=== PATIENT | female | born 1990 | race Caucasian/White ===

== ENCOUNTER 2016-12-17 19:34 | Inpatient (IN) ==
[2016-12-17] MEDS ORDERED: NS FLUSH BAG 500ml IV PRN ×3 (21:13→21:56)
[2016-12-17] MEDS ORDERED: ACETAMINOPHEN 500 MG TABLET PO PRN ×2 (21:43→22:06)
[2016-12-17] MEDS ORDERED: METHYLERGONOVINE 0.2 MG/ML INJECTION IM PRN (22:06)
[2016-12-17] MEDS ORDERED: MAG-AL + SIM ORAL LIQUID 30ml PO PRN (22:06)
[2016-12-17] MEDS ORDERED: LR 1,000 ML IV PRN (22:06)
[2016-12-17] MEDS ORDERED: CARBOPROST 250 MCG/ML INJECTION IM PRN (22:06)
[2016-12-17] MEDS ORDERED: CALCIUM CARBONATE Chewable 500mg TABLET PO PRN (22:06)
[2016-12-17] MEDS ORDERED: DiphenhydrAMINE 50 MG/ML INJECTION IVP PRN (22:58)
[2016-12-17] MEDS ORDERED: ONDANSETRON 4 MG/2 ML INJECTION IVP PRN (22:58)
[2016-12-17] MEDS ORDERED: NALOXONE 0.4 MG/ML INJECTION IVP PRN (22:58)
[2016-12-17] MEDS ORDERED: ROPIVACAINE 1% 10MG/ML INJ 200 MG, SUFentanil 50 MCG in NS 100 ML EPI PRN (22:58)
--- NOTE | 2016-12-17 22:58 | Anesthesia Preoperative Report ---
Anesthesia Epidural/Spinal Rec - Date and Time Date: 12/17/16 Preoperative Diagnosis: Procedure: Labor Epidural Plan: Epidural - Vital Signs Vital Signs: Temperature 97.2 F 12/17/16 21:30 Pulse Rate 86 12/17/16 21:30 Respiratory Rate 20 12/17/16 21:30 Blood Pressure 127/73 12/17/16 21:30 Pulse Oximetry 98 12/17/16 21:30 /Para: P:2 - Medictaions & Allergies Inpatient Medications: Current Medications Acetaminophen (Tylenol) 1,000 mg PO Q5H PRN PRN Reason: Discomfort Last Admin: 12/17/16 21:45 Dose: 1,000 mg Acetaminophen (Tylenol) 500 - 1,000 mg PO Q4H PRN PRN Reason: Pain Al Hydroxide/Mg Hydroxide (Maalox Plus) 30 ml PO Q3H PRN PRN Reason: Indigestion Calcium Carbonate (Tums) 500 - 1,000 mg PO Q2H PRN PRN Reason: Indigestion Carboprost Tromethamine (Hemabate) 250 mcg IM O PRN PRN Reason: .Downtime Lactated Ringer's (Lactated Ringers) 1,000 mls @ 999 mls/hr IV .Q1H1M PRN Methylergonovine Maleate (Methergine) 0.2 mg IM O PRN Misoprostol (Cytotec) 800 mcg OR ONCE PRN Sodium Chloride (Normal Saline) 500 ml IV PRN PRN Last Admin: 12/17/16 21:15 Dose: 500 ml Sodium Chloride (Normal Saline) 100 ml IV PRN PRN Sodium Chloride (Normal Saline) 500 ml IV PRN PRN Last Admin: 12/17/16 21:57 Dose: 500 ml Allergies/Adverse Reactions: Allergies Allergy/AdvReac Type Severity Reaction Status Date / Time hydrocortisone Allergy Intermediate RASH GETS Verified 11/27/16 12:05 WORSE diphenhydramine HCl Allergy Mild RASH Uncoded 11/27/16 12:05 STEROID SHOTS Allergy Unknown Uncoded 11/27/16 12:05 - Home Medications Home Medications: Home Medications Medication Instructions Recorded Confirmed Type Albuterol HFA Inhaler [Ventolin 2 puff ORAL INH Q4H PRN 08/29/16 08/29/16 History Hfa 90 mcg/actuation] Pnv No.95/Ferrous Fum/Folic AC 1 tab PO DAILY 08/29/16 08/29/16 History [ Tablet] Novolog Mix 70-30 FlexPen (insulin 14 unit SQ BID ml 11/13/16 History aspar prot-insulin aspart) 100 unit/mL (70-30) PEN pen needle, diabetic 31 gauge x See Dose Instructions .ROUTE 11/13/16 History 3/16" .MEDSUPPLY #30 each - Medical History Gastrointestional: Reports: Morbid Obesity - Surgical History Anesthesia Reactions: None Hx Family Anesthesia Reaction: No History of Motion Sickness: No - Social History Substance Use Type: does not use - Pertinent Findings Lab Data: CBC and BMP 12/17/16 22:20 Urine 12/17/16 Range/Units 19:40 Urine Color Yellow (YELLOW) Urine Clarity Sl cloudy Urine pH 7.0 (5.0-8.0) Ur Specific [place] 1.020 (1.015-1.025) Urine Protein 2+ A (NEGATIVE) Urine Glucose (UA) Negative (NEGATIVE) EKG Rhythm: Normal Sinus Rhythm - Physical Exam Respiratory Exam: lungs clear Cardiovascular Exam: regular rate and rhythm, no murmur - Airway Assessment Mallampati Score: II TMD: 3 Fingerbreadths Neck Extension: good Teeth: chipped teeth/crowns Overall Assessment: may be difficult mask vent, may be difficult intubation - ASA ASA Score: 3 - Discussion Discussion: Discussed risks/options/alternatives of anesthesia and questions answered. Patient consents. Nursing pain assessment noted. Anesthesia Discussion: family member Attestation Statement: Prior to the delivery of any anesthetic medication, I examined the patient, developed the plan, obtained the patient's consent and discussed the risk and benefits of the procedure with the patient/guardian.
[2016-12-18] MEDS ORDERED: MAG-AL + SIM ORAL LIQUID 30ml PO PRN (00:19)
[2016-12-18] MEDS ORDERED: DiphenhydrAMINE 25 MG CAPSULE PO PRN (00:19)
[2016-12-18] MEDS ORDERED: CALCIUM CARBONATE Chewable 500mg TABLET PO PRN (00:19)
[2016-12-18] MEDS ORDERED: OXYTOCIN DRIP 30 UNIT/500 ML ML IV SCH (00:19)
[2016-12-18] MEDS ORDERED: ACETAMINOPHEN 500 MG TABLET PO PRN (00:19)
[2016-12-18] MEDS ORDERED: BENZOCAINE 20% SPRAY 0.5 ML MM ONE (00:19)
[2016-12-18] MEDS: HYDROCODONE/APAP 5mg/325mg TABLET PO PRN ×5 (00:22→22:02)
[2016-12-18] MEDS: IBUPROFEN 800 MG TABLET PO PRN ×3 (00:22→17:14)
[2016-12-18 03:04] VITALS: BMI 45.0
--- NOTE | 2016-12-18 06:51 | Anesthesia Postoperative Note ---
- Date and Time Date: 12/18/16 Time: 06:51 - Status Patient Participated in Evaluation: Patient Participated in Person Vital Signs: Temperature 98.6 F 12/18/16 03:30 Pulse Rate 90 12/18/16 03:30 Respiratory Rate 16 12/18/16 03:30 Blood Pressure 113/73 12/18/16 03:30 Pulse Oximetry 98 12/18/16 03:30 Respiratory Function: Airway Patent Cardiovascular Function: Regular Pulse EKG: Sinus Rhythm Mental Status: Alert and Oriented Pain Intensity: 0 Hydration: Taking PO Fluids Complications During Recover: None Apparent - Follow-Up Instructions Instructions: Per Surgeon
--- NOTE | 2016-12-18 07:41 | OB/GYN Progress Note ---
OB-PP Progress Note - General PPD1 Maternal Group B Strep: Negative Maternal blood type: O+ Maternal Rubella Status: Immune - Subjective Date: 12/18/16 Lochia: Minimal Pain: contolled Voiding: voiding Nausea or Vomiting Present: No - Objective Vital Signs: Last Vital Signs Temp 98.6 F 12/18/16 03:30 Pulse 90 12/18/16 03:30 Resp 16 12/18/16 03:30 BP 113/73 12/18/16 03:30 Pulse Ox 98 12/18/16 03:30 Urine Output: good General: alert and oriented Cardiovascular: regular rate,rhythm Respiratory: non-labored Abdomen: fundus firm, non-tender Extremities: non-tender Laboratory: Laboratory Results - last 24 hr 12/17/16 12/17/16 12/17/16 19:40 20:43 22:20 WBC 14.2 H RBC 4.63 Hgb 14.5 Hct 41.5 MCV 89.6 MCH 31.3 MCHC 34.9 RDW Std Deviation 40.9 Plt Count 210 MPV 10.4 Cord ABG pH Cord ABG pCO2 Cord ABG pO2 Cord ABG HCO3 Cord ABG Total CO2 Cord ABG Base Excess Cord ABG O2 Sat Cord VBG pH Cord VBG pCO2 Cord VBG pO2 Cord VBG HCO3 Cord VBG Total CO2 Cord VBG Base Excess Cord VBG O2 Sat Glucometer 93 Ur Collection Type Urine, clean catch Urine Color Yellow Urine Clarity Sl cloudy Urine pH 7.0 Ur Specific [place] 1.020 Urine Protein 2+ A Urine Glucose (UA) Negative Urine Ketones Negative Urine Occult Blood 3+ A Urine Nitrate Negative Urine Bilirubin Negative Urine Urobilinogen 1.0 Ur Leukocyte Esterase Negative Urine RBC 20-30 H Urine WBC 5-10 H Ur Squamous Epith Cells >50 Urine Bacteria 2+ H Urine Mucus Present Ur Culture Indicated? Cult not indicated 12/17/16 12/17/16 12/18/16 23:46 23:46 06:27 WBC 13.5 H RBC 3.88 L Hgb 11.9 L D Hct 35.1 L D MCV 90.5 MCH 30.7 MCHC 33.9 RDW Std Deviation 39.8 Plt Count 174 MPV 10.2 Cord ABG pH 7.270 Cord ABG pCO2 57 Cord ABG pO2 9 Cord ABG HCO3 26 Cord ABG Total CO2 27.9 Cord ABG Base Excess -1.6 Cord ABG O2 Sat 6.0 Cord VBG pH 7.330 Cord VBG pCO2 43 Cord VBG pO2 19 Cord VBG HCO3 23 Cord VBG Total CO2 24.0 Cord VBG Base Excess -3.2 Cord VBG O2 Sat 25.0 Glucometer Ur Collection Type Urine Color Urine Clarity Urine pH Ur Specific [place] Urine Protein Urine Glucose (UA) Urine Ketones Urine Occult Blood Urine Nitrate Urine Bilirubin Urine Urobilinogen Ur Leukocyte Esterase Urine RBC Urine WBC Ur Squamous Epith Cells Urine Bacteria Urine Mucus Ur Culture Indicated? 12/18/16 06:57 WBC RBC Hgb Hct MCV MCH MCHC RDW Std Deviation Plt Count MPV Cord ABG pH Cord ABG pCO2 Cord ABG pO2 Cord ABG HCO3 Cord ABG Total CO2 Cord ABG Base Excess Cord ABG O2 Sat Cord VBG pH Cord VBG pCO2 Cord VBG pO2 Cord VBG HCO3 Cord VBG Total CO2 Cord VBG Base Excess Cord VBG O2 Sat Glucometer 88 Ur Collection Type Urine Color Urine Clarity Urine pH Ur Specific [place] Urine Protein Urine Glucose (UA) Urine Ketones Urine Occult Blood Urine Nitrate Urine Bilirubin Urine Urobilinogen Ur Leukocyte Esterase Urine RBC Urine WBC Ur Squamous Epith Cells Urine Bacteria Urine Mucus Ur Culture Indicated? - Assessment Assessment: SP, - Plan Plan: routine care ( in SCN plan dismissal PPD #2)
--- NOTE | 2016-12-18 08:17 | Labor and Delivery Note ---
DATE OF DELIVERY: 12/17/2016 DIAGNOSES 1. 26-year-old white female, G3, P2, at 37.5 weeks gestational age. 2. Spontaneous labor. 3. Chronic hypertension. 4. Gestational diabetes A2 - on insulin. 5. Depression - on Lexapro. 6. Epidural anesthesia. 7. Artificial rupture of membranes. 8. Meconium-stained amniotic fluid. 9. Spontaneous vaginal delivery. 10. Nuchal cord x 1 - tight - clamped and cut. 11. Male infant, Apgars, 3549 g. This is a patient of Dr. Mendoza'glo that came in this evening complaining of contractions 3-5 minutes apart. Yesterday in the office she was 1 cm and today on presentation she was 2 cm. Two hours later I checked her and she was 3.5 cm, so we admitted her. We had already started an IV and given her 500 ml of normal saline bolus. We checked a blood sugar which I believe was 93. Because of the cervical change she was in labor and we admitted her and moved her to Room 3. Shortly thereafter she was feeling more of an urge to push, so I came and checked her and she was 8.5 cm. Anesthesia was here and the patient wanted a block, so we went ahead and blocked her and then I waited until she was comfortable and then broke her water. Light meconium was noted. She was 9 cm at that time and about 20-30 minutes later she was completely dilated and ready to push. We began pushing. Infant was delivered from OA position. Because of the meconium I did [place] suction on the perineum. There was a tight nuchal cord. Grandma was urging the patient to continue pushing and the shoulders came out with the cord still wrapped. I again told them to stop pushing and I doubly clamped and cut and unwrapped and delivered the baby and took it immediately to the isolette. Nurses attended to the baby. The placenta was delivered spontaneously about 7 minutes later. There was a small first-degree laceration that was repaired with 3-0 chromic in a running-locking fashion. EBL was about 250. Maternal blood type is O+, rubella is immune and group B strep is negative. The infant had Apgars of . I therefore did cord blood gases. Dr. Egan was called in to attend to the baby and at the time of dictation is in Special Care. The father of the baby is asking about paternity testing. Placenta was sent to pathology. EDVIN
[2016-12-18] MEDS: DOCUSATE CALCIUM 240 MG CAPSULE PO SCH (09:18)
[2016-12-18] MEDS: ESCITALOPRAM 10 MG TABLET PO SCH (09:18)
--- OUTSIDE RECORDS SUMMARY | 2016-12-18 10:27 | External Medical Summary | Continuity of Care Document ---
:1990 Author Organization [facility] Address [address] [place], [place] [id number] Phone Care Team Providers Name Role Phone Abdiel Pacheco MD Unavailable Unavailable Allergies, Adverse Reactions, Alerts Substance Reaction Severity Status DIPHENHYDRAMINE HCL Unknown Active betamethasone Unknown Active CHLORPHENIRAMINE MALEATE Unknown Active hydrocortisone Unknown Active Medications Medication Instructions Dosage Effective Dates Status Comments (start - stop) Macrobid 100 mg take 1 capsule PO BID - Active capsule Flovent HFA 110 inhale 1- 2 puff by - Active mcg/actuation aerosol INHALATION route 2 inhaler times every day Novolog Mix 70-30 inject by subcutaneous - Active FlexPen 100 unit/mL route as per insulin subcutaneous pen protocol Pen Needle 31 gauge x - Active 1/4" ProAir HFA 90 inhale 2 puff by - Active mcg/actuation aerosol inhalation route inhaler every 4 - 6 hours as needed ONE DAILY take 1 tablet by oral - Active (unknown strength) route every day Problems Condition Effective Dates (start - stop) Clinical Status Follow-Up, Routine - Supervision of other high risk - pregnancies, second trimester Pre-existing essential htn comp - , second trimester 26 weeks gestation of - Gestational diabetes in , - insulin controlled 31 weeks gestation of - Morbid (severe) obesity due to excess - calories Suprvsn of preg w insufficient antenat - care, second tri Supervision of other high risk - pregnancies, second trimester Pre-existing essential htn comp - , second trimester 20 weeks gestation of - Supervision of other high risk - pregnancies, second trimester Pre-existing essential htn comp - , second trimester 15 weeks gestation of - Supervision of other high risk - pregnancies, second trimester Pre-existing essential htn comp - , second trimester 20 weeks gestation of - Supervision of other high risk - pregnancies, second trimester Pre-existing essential htn comp - , second trimester 24 weeks gestation of - Supervision of other high risk - pregnancies, third trimester Pre-existing essential htn comp - , third trimester Gestational diabetes in , - insulin controlled 31 weeks gestation of - Supervision of other high risk - pregnancies, third trimester Gestational diabetes in , - insulin controlled 28 weeks gestation of - Pre-existing essential htn comp - , third trimester Liver and biliary tract disord in - , third trimester 28 weeks gestation of - Gestational diabetes in , - insulin controlled 30 weeks gestation of - Follow-Up, Routine Pelvic Pain - Active Active Procedures Procedure Date Unknown Results Test Name Date and Time Measure Units Reference Range Abnormal Flag Comments Unknown Advance Directives Directive Yes / No Effective Date File Name Unknown Encounters Encounter Practice Location Reason(s) Diagnoses Date Provider Care Team Description For Visit Members Leticia [place] Gestational Oct- Mendoza In Womens diabetes in 7-201 [facility], , 7 700 [address] insulin Medical 1522, [email or web address] [facility] [place], weeks gestation [place], of 120, [id number], [place], tel:[phone] , [place]. tel: [phone] Leticia [place] Supervision of [facility] In Womens Ultrasound other high risk 7- [facility], pregnancies, 7 700 [address] third Medical 1522, trimesterPre-exis [facility], ting essential [place], htn comp 120, , , third [place], [place] trimesterGestatio [place], tel:[phone] nal diabetes in , , [place]. insulin tel: [id number] [phone] weeks gestation of [facility] Gestational Aug-1 [place] In Womens diabetes in 0-201 [facility], , 7 700 PO Box insulin Medical 1522, [email or web address] [facility], weeks gestation [place], of 120, , [place], tel:[phone] , [place]. tel: [phone] Leticia [place] Dillon-2 [place] In Womens 8-201 [facility], 7 700 [address] Medical [address], [address] [place], 120, , [place], tel:[phone] , [place]. tel: [phone] Leticia [place] Dillon-2 [facility] In Womens 7-201 [facility], 7 700 [address] Medical [address], [facility], [place], 120, , [place], tel:[phone] , [place]. tel: [phone] Leticia [place] Supervision of Sep-2 [facility] In Womens other high risk - [facility], pregnancies, 7 700 PO Box third Medical 1522, trimesterGestatio [facility], nal diabetes in [place], , 120, , insulin [place], [email or web address] [place], tel:[phone] weeks gestation of , [place]. tel:[phone] Leticia [place] Pre-existing Dillon-2 Mendoza In Womens Ultrasound essential htn 7- [facility], comp , 7 700 PO Box third Medical 1522, trimesterLiver [facility], and biliary tract [place], disord in 120, , , third [place], [place] [email or web address] weeks [place], tel:[phone] gestation of [phone] , [place]. tel: [phone] Leticia [place] Supervision of Sep- Mendoza In Womens other high risk 2-201 [facility], pregnancies, 7 700 PO Box second Medical 1522, [facility]exis [facility], [place], htn comp 120, , , second [place], [place] [id number] weeks [place], tel:[phone] gestation of [phone] , [place]. tel: [phone] Leticia [place] Supervision of Jass- Mendoza In Womens other high risk 7-201 [facility], pregnancies, 7 700 PO Box second Medical 1522, trimesterPre-exis [facility], [address], [place], htn comp 120, , , second [place], [place] [email or web address] weeks [place], tel:[phone] gestation of [id number] , [place]. tel: [phone] Leticia [place] Supervision of Mendoza In Womens other high risk 1-201 [facility], pregnancies, 7 700 PO Box second Medical 1522, [facility] [address], [place], htn comp 120, , , second [place], [place] [id number] weeks [place], tel:[phone] gestation of [id number] , [place]. tel: [phone] Leticia [place] Suprvsn of preg w July- Mendoza In Womens Ultrasound insufficient 1-201 [facility], antenat care, 7 700 PO Box second Medical 1522, triSupervision of [facility], other high risk [place], pregnancies, 120, , second [place], [place] trimesterPre-exis [place], tel:[phone] ting essential [phone] htn comp , [place]. , second tel:[phone] [id number] weeks [phone] gestation of [facility] Supervision of Jun-2 Mendoza In Womens other high risk 5-201 [facility], pregnancies, 7 700 PO Box second Medical 1522, trimesterPre-exis [place] [address], [place], htn comp 120, [id number], , second [facility] [email or web address] weeks [place], tel: gestation of , [place]. tel: [phone] Leticia [place] Javad-2 M[facility]za In Womens Follow-Up, 0-201 [facility], Routine 6 700 PO [facility] [address], [address] [place], [facility] [place], 120, [id number], [place], tel:[phone] , [place]. tel: [phone] Leticia [place] Dec-1 Mendoza In Womens Follow-Up, 4-201 [facility], Routine 5 700 [facility] [address], [address] [place], [facility] [place], 120, [id number], [facility] [place], tel:[phone] , [place]. tel: [phone] Leticia [place] Morbid (severe) Nov-1 Mendoza In Womens Ultrasound obesity due to 2-201 [facility], excess calories 5 700 [facility] [address], [address] [place], [facility] [place], 120, , [facility] [place], tel:[phone] , [place]. tel: [phone] Leticia [place] Oct-2 Mendoza Referring In Womens 8-201 Fern. Provider: Health SANA, 5 700 Fern Mendoza [facility] , 700 1522, [place] [address], [facility] [place], 120, [place] 120, [id number], Bhupendra [place], [place], [place], tel:[phone]. , [place]. tel: tel: [phone] Leticia [place] Oct-1 Mendoza Referring In Womens 4-201 Fern. Provider: Lan HOOD, 5 700 Fern Mendoza PO [facility] , 700 [address], [place] [address], [facility] [place], 120, [place] 120, , Bhupendra [place], [place], tel:[phone]. , [place]. tel: tel: [phone] [facility] Jass-1 [place] In Womens 6-201 [facility], 5 700 PO Box Medical [address], [address] [place], [facility] [place], 120, [id number], [facility] [place], tel:[phone] , [place]. tel: [phone] Leticia [place] Apr-1 [place] In Womens 7-201 [facility], 5 700 PO [facility] [address], [address] [place], [facility] [place], 120, [id number], [facility] [place], tel:[phone] , [place]. tel: [phone] Leticia [place] Apr-0 [place] In Womens 1-201 [facility], 5 700 [facility] 1522, [address] [place], [facility] [place], 120, , [facility] [place], tel: [phone] , [place]. tel: [phone] Leticia [place] Sep-2 [place] In Womens 5-201 [facility], 2 700 [facility] [address], [address] [place], [facility] [place], 120, [id number], [facility] [place], tel: [phone] , [place]. tel: [phone] Leticia [place] Mar-1 Mendoza Referring In Womens 3-201 [facility]. Provider: [facility] [place], 2 700 Fern M[place]za PO [facility], 700 [address], [place] [address], [facility] [place], 120, [place] 120, [id number], Bhupendra [place], [facility], [place], tel: [phone]. , [place]. tel: tel: [phone] Family History Family Member Diagnosis Age At Onset No family history of Venous Thrombosis Father Schizophrenia Mother Alcoholism No family history of Pulmonary Embolism Father Diabetes mellitus Maternal Grandmother Cardiovascular Disease Paternal Grandmother Diabetes mellitus Mother Diabetes mellitus Maternal grandmother Rheumatoid arthritis Mother Renal disease Maternal Grandmother Renal disease Father Alcoholism Mother Cardiovascular Disease Maternal Grandmother Stroke Maternal Grandfather Stroke Maternal Grandfather Diabetes mellitus Immunizations Vaccine Date Status Comments Tdap completed Source: New Immunization Record Influenza, seasonal, injectable, completed Source: New Immunization Record preservative free, 3 yrs or older Payers Payer name Insurance type Covered green party ID Authorization(s) [facility] - [place] [id number] [facility] - [id number] Medicaid [employer] [place] [id number] Medicaid [employer] [place] [id number] Medicaid Social History Type Description Quantity Date Captured Unknown Vital Signs Date / Height Weight BMI Pulse Blood Temperature Respiratory Body Head BMI Time: Rate Pressure Rate Surface Circumference percentile Area Unknown Chief Complaint And Reason For Visit Unknown Chief Complaint And Reason For Visit Reason For Referral Reason For Referral Unknown Plan Of Care Date Type Action Status Goal Tobacco cessation counseling completed Goal Tobacco cessation counseling completed Referral Ordered: ordered Javad Cardona -Endocrinology, Diabetes and Metabolism (related to Gestational diabetes in , insulin controlled) Referral Ordered: ordered Refer to Physical Therapyfor Evaluate & Treat Appointment Dariel Espinosa BOOKED Appointment Dariel Espinosa BOOKED Appointment Dariel Espinosa BOOKED Appointment Dariel Espinosa BOOKED Appointment Dariel Espinosa BOOKED Appointment Dariel Espinosa BOOKED Appointment Dariel Espinosa BOOKED Appointment Dariel Espinosa BOOKED Appointment Dariel Espinosa BOOKED Appointment Dariel Espinosa BOOKED Appointment Dariel Espinosa BOOKED Appointment Dariel Espinosa BOOKED Future Order: Radiology Order Biophysical Profile without NST Ordered ([id number]) Future Order: Radiology Order Complete OB Ultrasound > 14 Ordered Weeks ([id number]) Future Order: Radiology Order Ultrasound OB Follow-up ([id number]) Ordered Future Order: Radiology Order Biophysical Profile without NST Ordered ([id number]) Future Order: Radiology Order Ultrasound OB Follow-up ([id number]) Ordered Future Order: Lab Order Pap Smear With HPV Reflex If Ordered ASCUS ([id number]) Date Type Problem Goal Intervention Status Start Date Unknown. History Of Present Illness Encounter Date Complaint History Of Present Illness This patient has no known history of present illness Functional Status Encounter Date Functional Assessment Cognitive Assessment Unknown Medications Administered Medication Instructions Dosage Effective Dates (start - stop) Status Comments Drug Treatment Unknown Instructions Date Instruction Additional Information Unknown
--- OUTSIDE RECORDS SUMMARY | 2016-12-18 10:27 | External Medical Summary | Continuity of Care Document ---
:1990 Author Organization [facility] Address [address] [place], [place] [id number] Phone Care Team Providers Name Role Phone Abdiel Pacheco MD Unavailable Unavailable Allergies, Adverse Reactions, Alerts Substance Reaction Severity Status DIPHENHYDRAMINE HCL Unknown Active betamethasone Unknown Active CHLORPHENIRAMINE MALEATE Unknown Active hydrocortisone Unknown Active Medications Medication Instructions Dosage Effective Dates Status Comments (start - stop) Lexapro 10 mg tablet take 1/2 tablet by - Active oral route every day for 2 weeks, then increase to a full tablet if needed Plus take 1 tablet by Not Available - Active (calcium carbonate) oral route every 27 mg iron-1 mg day tablet Flovent HFA 110 inhale 1- 2 puff by - Active mcg/actuation INHALATION route 2 aerosol inhaler times every day Novolog Mix 70-30 inject by - Active FlexPen 100 unit/mL subcutaneous route subcutaneous pen as per insulin protocol Pen Needle 31 gauge - Active x 1/4" ProAir HFA 90 inhale 2 puff by - Active mcg/actuation inhalation route aerosol inhaler every 4 - 6 hours as needed Prilosec OTC 20 mg take 1 Capsule by Not Available - Active tablet,delayed Oral route every release day Problems Condition Effective Dates (start - stop) Clinical Status Follow-Up, Routine - Supervision of other high risk - pregnancies, second trimester Pre-existing essential htn comp - , second trimester 26 weeks gestation of - Gestational diabetes in , - insulin controlled 33 weeks gestation of - Gestational diabetes in , - insulin controlled 35 weeks gestation of - Oth mental disorders complicating - , third trimester Morbid (severe) obesity due to excess - [...] insulin controlled 28 weeks gestation of - Supervision of other high risk - pregnancies, third trimester Gestational diabetes in , - insulin controlled Pre-existing essential htn comp - , third trimester 31 weeks gestation of - Supervision of other high risk - pregnancies, third trimester Gestational diabetes in , - insulin controlled Liver and biliary tract disord in - , third trimester 32 weeks gestation of - Supervision of other high risk - pregnancies, third trimester Gestational diabetes in , - insulin controlled Pre-existing essential htn comp - , third trimester 33 weeks gestation of - Supervision of other high risk - pregnancies, third trimester Gestational diabetes in , - insulin controlled 36 weeks gestation of - Liver and biliary tract disord in - , third trimester Pre-existing essential htn comp - , third trimester Liver and biliary tract disord in - , third trimester 28 weeks gestation of - Gestational diabetes in , - insulin controlled 31 weeks gestation of - Pre-existing essential htn comp - , third trimester 32 weeks gestation of - Gestational diabetes in , - insulin controlled Pre-existing essential htn comp - , third trimester Gestational diabetes in , - insulin controlled 34 weeks gestation of - Gestational diabetes in , - insulin controlled 34 weeks gestation of - Gestational diabetes in , - insulin controlled Pre-existing essential htn comp - , third trimester 35 weeks gestation of - Pre-existing essential htn comp - , third trimester Gestational diabetes in , - insulin controlled 36 weeks gestation of - Follow-Up, Routine Gestational diabetes in , - insulin controlled 30 weeks gestation of - Pelvic Pain - Active Active Procedures Procedure Date Unknown Results Test Name Date and Time Measure Units Reference Range Abnormal Flag Comments Unknown Advance Directives Directive Yes / No Effective Date File Name Unknown Encounters Encounter Practice Location Reason(s) Diagnoses Date Provider Care Team Description For Visit Members Leticia Huizar Supervision of Jeremie Referring In Womens other high risk 8-201 Lety. Provider: [facility], pregnancies, 7 700 Fern Mendoza [address] [facility], 700 1522, [facility] oj Mariscal diabetes in Dr, [facility] [address] ZUÑIGA, , 120, [place] 120, [id number], insulin Bhupendra Huizar, [email or web address] ZARA ZUÑIGA, tel:[phone] weeks gestation [phone]. [id number] [facility] . tel: and biliary tract tel: [phone] disord in [id number] , third trimester [facility] Pre-existing Sep-1 Mendoza In Womens Ultrasound essential htn [place]. [facility], comp , 7 700 [address] third Medical 1522, trimesterGestatio [facility] [place], nal diabetes in [place], , 120, [id number], insulin [place], [place] [id number] [place], tel:[phone] weeks gestation [phone] [id number] of , [place]. tel: [phone] [facility] Gestational Sep-1 Mendoza In Womens diabetes in [place]. [facility], , 7 700 PO Box insulin Medical 1522, [email or web address] [facility] [place], weeks gestation [place], of pregnancyOth 120, , mental disorders [place], [place] complicating [place], tel:[phone] , third [phone] [id number] trimester , [place]. tel: [phone] [facility] Gestational Sep-1 Mendoza In Womens Ultrasound diabetes in [place]. [facility], , 7 700 PO Box insulin Medical 1522, controlledPre-exi [facility] [place], sting essential [place], htn comp 120, [id number], , third [place], [place] weeks [place], tel:[phone] gestation of [phone] [id number] , [place]. tel: [phone] [facility] Gestational Sep-0 Mendoza In Womens diabetes in [place]. [facility], , 7 700 PO Box insulin Medical 1522, [email or web address] [facility] [place], weeks gestation [place], of 120, [id number], [place], [place], tel:+ [phone] , [place]. tel: [phone] [facility] Pre-existing Sep-0 Mendoza In Womens Ultrasound essential htn [place]. [facility], comp , 7 700 [address] third Medical 1522, trimesterGestatio [facility] [place], nal diabetes in [place], , 120, [id number], insulin [place], [place] [email or web address] [place], tel:[phone] weeks gestation [phone] [id number] of , [place]. tel: [phone] Leticia Huizar Sep-0 Mendoza In Womens [place]. [facility], 7 700 [address] Medical [address], [place], 120, [id number], [place], [place], tel:[phone] , [place]. tel: [phone] Leticia Huizar Gestational Aug-3 Mendoza In Womens diabetes in [place]. [facility], , 7 700 PO Box insulin Medical 1522, [email or web address] [facility] [place], weeks gestation [place], of 120, [id number], [place], [place], tel:[phone] , [place]. tel: [phone] Leticia Huizar Supervision of Aug-3 Mendoza In Womens Ultrasound other high risk [place]. [facility], pregnancies, 7 700 [address] third Medical 1522, trimesterGestatio [facility], [facility] diabetes in [place], , 120, , insulin [place], controlledPre-exi [place], tel:[phone] sting essential [phone] htn comp , [place]. , third tel:+04-21 [id number] weeks [phone] gestation of [facility] Supervision of Aug-2 Mendoza In Womens other high risk [place]. [facility], pregnancies, 7 700 [address] third Medical 1522, trimesterGestatio [facility], nal diabetes in [place], , 120, [id number], insulin [place], controlledLiver [place], tel:[phone] and biliary tract [phone] [id number] disord in , [place]. , third tel:[phone] [id number] weeks [phone] gestation of [facility] Pre-existing Aug-2 Mendoza In Womens Ultrasound essential htn [place]. [facility], comp , 7 700 [address] Box third [email or web address] Medical 1522, weeks gestation [facility], of [place], pregnancyGestatio 120, [id number], nal diabetes in [facility] , [place], tel:[phone] insulin [phone] [id number] controlled , [place]. tel: [phone] Leticia Huizar Gestational Aug-1 Mendoza In Womens diabetes in [place]. [facility], , 7 700 PO Box insulin Medical 1522, [id number] [facility] [place], weeks gestation [place], of 120, [id number], [place], tel:[phone] , [place]. tel: [phone] Leticia Huizar Supervision of Oct- Mendoza In Womens Ultrasound other high risk 7- [place]. [facility], pregnancies, 7 700 PO Box third Medical 1522, [facility]atio [facility] [place] diabetes in [place], , 120, [id number], insulin [place], [place] controlledPre-exi [place], tel:+ sting essential [phone] htn comp , [place]. , third tel: [id number] weeks [phone] gestation of [facility] Gestational Aug- Mnedoza In Womens diabetes in 0-201 [place]. [facility], , 7 700 PO Box insulin Medical 1522, [email or web address] [facility] [place], weeks gestation [place], of 120, [id number], [place], tel:[phone] , [place]. tel: [phone] Leticia Huizar Sep-2 Mendoza In Womens 8- [place]. [facility], 7 700 [address] Medical [address], [place] [address] [place], 120, [id number], [place], tel:[phone] , [place]. tel: [phone] Leticia Huizar Sep-2 Mendoza In Womens 7- [place]. [facility], 7 700 [address] Medical [address], [place] [address] [place] [place], 120, [id number], [place], [place], tel:[phone] , [place]. tel: [phone] Leticia Huizar Supervision of Sep-2 Mendoza In Womens other high risk 7- [place]. [facility], pregnancies, 7 700 [address] Box third Medical 1522, trimesterGestatio [facility] [place], jo diabetes in [place], , 120, [id number], insulin [place], [place] [email or web address] [place], tel:+[phone] weeks gestation [phone] [id number] of , [place]. tel:[phone] Leticia Huizar Pre-existing Sep-2 Mendoza In Womens Ultrasound essential htn - Fern. [facility], comp , 7 700 [address] third Medical 1522, trimesterLiver [facility] [place], and biliary tract [place], disord in 120, [id number], , third [place], [place] [email or web address] weeks [place], tel:[phone] gestation of [id number] , [place]. tel:[phone] Leticia Huizar Supervision of Sep-1 Mendoza In Womens other high risk 2-201 Fern. [facility], pregnancies, 7 700 PO Box second Medical 1522, trimesterPre-exis [facility], ting essential [place], htn comp 120, [id number], , second [place], [place] [id number] weeks [place], tel:[phone] gestation of [id number] , [place]. tel:[phone] Leticia Huizar Supervision of Jass-2 Mendoza In Womens other high risk - Fern. [facility], pregnancies, 7 700 PO Box second Medical 1522, trimesterPre-exis [facility], ting essential [place], htn comp 120, [id number], , second [place], [place] weeks [place], tel:[phone] gestation of [phone] [id number] , [place]. tel:[phone] Leticia Huizar Supervision of July- Mendoza In Womens other high risk -201 Fern. [facility], pregnancies, 7 700 PO Box second Medical 1522, trimesterPre-exis [facility], dorothyg essential [place], htn comp 120, [id number], , second [place], [place] [id number] weeks [place], tel:[phone] gestation of [phone] [id number] , [place]. tel:[phone] Leticia Huizar Suprvsn of preg w July-3 Mendoza In Womens Ultrasound insufficient - Fern. [facility], antenat care, 7 700 PO Box second Medical 1522, triSupervision of [facility], other high risk [place], pregnancies, 120, [id number], second [place], [place] trimesterPre-exis [place], tel: ting essential [phone] htn comp , [place]. , second tel: weeks [phone] gestation of [facility] Supervision of Apr-2 Mendoza In Womens other high risk 5-201 Fern. [facility], pregnancies, 7 700 PO Box second Medical 1522, trimesterPre-exis [place], [address], [facility] [place], htn comp 120, [id number], , second [place], [email or web address] weeks [place], tel: gestation of [id number] , [place]. tel: [phone] Leticia Huizar Javad-2 Mendoza In Womens Follow-Up, 0-201 Fern. [facility], Routine 6 700 [address] Medical [address], [place] [address] [place], [facility] [place], 120, [id number], [facility] [place], tel: [phone] , [place]. tel: [phone] Leticia Huizar Dec-1 Mendoza In Womens Follow-Up, 4-201 Fern. [facility], Routine 5 700 [address] Medical [address], [place] [address] [place], [facility] [place], 120, [id number], [facility] [place], tel: [phone] , [place]. tel: [phone] Leticia Huizar Morbid (severe) Nov-1 Mendoza In Womens Ultrasound obesity due to 2-201 Fern. Health SANA, excess calories 5 700 PO [place] [facility] [address], [address], [facility] [place], 120, , [place], tel: [phone] , [place]. tel: [phone] Leticia Huizar Oct-2 Mendoza Referring In Womens 8-201 Fern. Provider: Health [facility], 5 700 Fern Mendoza PO Box Medical K, 700 1522, [place] [address], [facility] [place], 120, [place] 120, [id number], Bhupendra [place], [place], [place], tel:[phone]. , [place]. tel: tel: [phone] Leticia Huizar Oct-1 Mendoza Referring In Womens 4-201 Fern. Provider: Health [facility], 5 700 Fern Mendoza PO [place] [facility], 700 1522, [place] [address], [facility] [place], 120, [place] 120, [id number], Bhupendra [place], [place], [place], tel: [phone]. , [place]. tel: tel: [phone] Leticia Huizar Jass-1 Mendoza In Womens 6-201 Fern. [facility], 5 700 [facility] Medical 1522, [place] [address] [place], [facility] [place], 120, [id number], [facility] [place], tel:[phone] , [place]. tel: [phone] Leticia Huizar Apr-1 Mendoza In Womens 7-201 Fern. [facility], 5 700 [facility] 1522, [place] [address] [place], [facility] [place], 120, , [facility] [place], tel:[phone] , [place]. tel: [phone] Leticia Huizar Sep-2 Mendoza In Womens 5-201 Fern. [facility], 2 700 [facility] Medical 1522, [place] [address] [place], [facility] [place], 120, [id number], [facility] [place], tel:[phone] , [place]. tel: [phone] Leticia Huizar May- Mendoza Referring In Womens 3-201 Fern. Provider: Health PA, 2 700 Fern Mendoza PO [place] [facility] K, 700 1522, [place] [address], [facility] [place], 120, [place] 120, [id number], Bhupendra [place], [place], [place], tel:[phone]. , [place]. tel: tel: [phone] Family History Family Member Diagnosis Age At [...] Comments Tdap completed Source: New Immunization Record Tdap completed Source: New Immunization Record Influenza, seasonal, injectable, completed Source: New Immunization Record preservative free, 3 yrs or older Payers Payer name Insurance type Covered democrat ID Authorization(s) [employer] [place] [id number] [facility] [id number] Medicaid [employer] [place] [id number] [facility] [id number] Medicaid [facility] [place] [id number] Medicaid Social History Type Description Quantity Date [...] Radiology Order Biophysical Profile without NST Ordered ([id number]) Future Order: Radiology Order Complete OB Ultrasound > 14 Ordered Weeks ([id number]) Future Order: Radiology Order Ultrasound OB Follow-up ([id number]) Ordered Future Order: Radiology Order Biophysical Profile without NST Ordered ([id number]) Future Order: Radiology Order Biophysical Profile without NST Ordered ([id number]) Future Order: Radiology Order Ultrasound OB Follow-up ([id number]) Ordered Future Order: Radiology Order Biophysical Profile without NST Ordered ([id number]) Future Order: Radiology Order Biophysical Profile without NST Ordered ([id number]) Future Order: Radiology Order Ultrasound OB Follow-up ([id number]) Ordered Future Order: Radiology Order Biophysical Profile without NST Ordered ([id number]) Future Order: Radiology Order Biophysical Profile without NST Ordered ([id number]) Future Order: Lab Order Pap Smear With [...]
--- OUTSIDE RECORDS SUMMARY | 2016-12-18 10:27 | External Medical Summary | Continuity of Care Document ---
:1990 Author Organization [facility] Address [address] [place], [place] [id number] Phone Care Team Providers Name Role Phone [...] insulin controlled 33 weeks gestation of - Supervision of [...] Pain - Active Active Procedures Procedure Date biophys prfl w/o nstress test Results Test Name Date and Time Measure Units Reference Range Abnormal Flag Comments Unknown Advance Directives Directive Yes / No Effective Date File Name Unknown Encounters Encounter Practice Location Reason(s) Diagnoses Date Provider Care Team Description For Visit Members [facility] Supervision of Jeremie Referring In Womens other high risk 8-201 Lety. Provider: [facility], pregnancies, 7 700 Fern Mendoza [address] [facility] , 700 1522, trimesterGestatio [place] [facility] jo Mariscal diabetes in Dr, [facility] Center Dr ZUÑIGA, , 120, [place] 120, [id number], insulin Bhupendra [place] [email or web address] ZARA ZUÑIGA, tel:[phone] weeks gestation [phone]. [id number] of pregnancyLiver , [place]. tel: and biliary tract tel: [phone] disord in [id number] , third trimester [facility] Pre-existing Sep-1 Mendoza In Womens Ultrasound essential htn [place], comp , 7 700 PO [address] third Medical 1522, trimesterGestatio [facility] [place], nal diabetes in [place], , 120, [id number], insulin [place], [place] [id number] [place], tel:+ weeks gestation [phone] [id number] of , [place]. tel: [phone] [facility] Gestational Sep-1 Mendoza In Womens diabetes in [place], , 7 700 PO Box insulin Medical 1522, [facility] [place], weeks gestation [place], of pregnancyOth 120, [id number], mental disorders [place], [place] complicating [place], tel: , third [phone] [id number] trimester , [place]. tel: [phone] [facility] Gestational Sep-1 Mendoza In Womens Ultrasound diabetes in [place], , 7 700 PO Box insulin Medical 1522, controlledPre-exi [facility] [place], sting essential [place], htn comp 120, [id number], , third [place], [place] weeks [place], tel: gestation of [phone] [id number] , [place]. tel: [phone] [facility] Gestational Sep-0 Mendoza In Womens diabetes in [place], , 7 700 PO Box insulin Medical 1522, [id number] [facility] [place], weeks gestation [place], of 120, [id number], [place], [place], tel:[phone] , [place]. tel: [phone] [facility] Pre-existing Sep-0 Mendoza In Womens Ultrasound essential htn [place], comp , 7 700 PO Box third Medical 1522, trimesterGestatio [facility], nal diabetes in [place], , 120, [id number], insulin [place], [place] [email or web address] [place], tel:+[phone] weeks gestation [phone] 196790 of , [place]. tel: [phone] Leticia [place] Sep-0 Mendoza In Womens Fern. [facility], 7 700 PO Box Medical 1522, [facility], [place], 120, [id number], [facility] [place], tel:[phone] , [place]. tel: [phone] Leticia Huizar Gestational Aug-3 Mendoza In Womens diabetes in Fern. [facility], , 7 700 PO Box insulin Medical 1522, [email or web address] [facility] [place], weeks gestation [place], of 120, [id number], [facility] [place], tel:+ [phone] , [place]. tel: [phone] Leticia Huizar Supervision of Aug-3 Mendoza In Womens Ultrasound other high risk Fern. [facility], pregnancies, 7 700 PO Box third Medical 1522, trimesterPre-exis [facility], ting essential [place], htn comp 120, [id number], , third [facility] trimesterGestatio [place], tel:[phone] nal diabetes in [id number] [id number] , , [place]. insulin tel: [id number] [phone] weeks gestation of [facility] Supervision of Aug-2 Mendoza In Womens other high risk Fern. [facility], pregnancies, 7 700 PO Box third Medical 1522, trimesterGestatio [facility], nal diabetes in [place], , 120, [id number], insulin [place], controlledLiver [place], tel:+ and biliary tract [phone] disord in , [place]. , third tel:+[phone] [id number] weeks [phone] gestation of [facility] Pre-existing Aug-2 Mendoza In Womens Ultrasound essential htn Fern. [facility], comp , 7 700 PO Box third [email or web address] Medical 1522, weeks gestation [facility], of [place], pregnancyGestatio 120, [id number], nal diabetes in [facility] , [place], tel:[phone] insulin [phone] controlled , [place]. tel: [phone] Leticia Huizar Gestational Aug-1 Mendoza In Womens diabetes in 7- [place], , 7 700 PO Box insulin Medical 1522, [id number] [facility] [place], weeks gestation [place], of 120, [id number], [place], [place], tel:[phone] , [place]. tel: [phone] Leticia Huizar Supervision of Aug-1 Mendoza In Womens Ultrasound other high risk 7- [place], pregnancies, 7 700 PO Box third Medical 1522, trimesterGestatio [facility] [place], nal diabetes in [place], , 120, , insulin Bhupendra, [place] controlledPre-exi [place], tel:+ sting essential [phone] htn comp , [place]. , third tel: [id number] weeks [phone] gestation of [facility] Gestational Aug-1 Mendoza In Womens diabetes in 0-201 [place], , 7 700 PO Box insulin Medical 1522, [email or web address] [facility] [place], weeks gestation [place], of 120, [id number], [place], [place], tel:+ [phone] , [place]. tel: [phone] Leticia Huizar Dillon-2 Mendoza In Womens 8- [place], 7 700 PO Box Medical 1522, [place] [address] [place], 120, , [place], [place], tel:[phone] , [place]. tel: [phone] Leticia [place] Dillon-2 Mendoza In Womens 7- [place], 7 700 PO Box Medical 1522, [place] [address] [place], 120, [id number], [place], [place], tel:[phone] , [place]. tel: [phone] Leticia Huizar Supervision of Dillon-2 Mendoza In Womens other high risk 7- [place], pregnancies, 7 700 PO Box third Medical 1522, trimesterGestatio [facility] [place], jo diabetes in [place], , 120, [id number], insulin [place], [place] [id number] [place], tel:[phone] weeks gestation [phone] of , [place]. tel:[phone] Leticia Huizar Pre-existing Sep-2 Mendoza In Womens Ultrasound essential htn - Fern. [facility], comp , 7 700 PO Box third Medical 1522, trimesterLiver [facility], and biliary tract [place], disord in 120, [id number], , third [place], [place] [id number] weeks [place], tel:[phone] gestation of [id number] , [place]. tel:[phone] Leticia Huizar Supervision of Sep- Mendoza In Womens other high risk 2-201 Fern. [facility], pregnancies, 7 700 PO Box second Medical 1522, trimesterPre-exis [facility], dorothyg essential [place], htn comp 120, [id number], , second [place], [place] [id number] weeks [place], tel:[phone] gestation of [phone] 1967[address] , [place]. tel: [phone] Leticia Huizar Supervision of Jass-2 Mendoza In Womens other high risk - Fern. [facility], pregnancies, 7 700 PO Box second Medical 1522, [facility], ford essential [place], htn comp 120, [id number], , second [place], [place] [id number] weeks [place], tel:[phone] gestation of [id number] , [place]. tel: [phone] Leticia Huizar Supervision of July- Mendoza In Womens other high risk 1-201 Fern. [facility], pregnancies, 7 700 PO Box second Medical 1522, [facility]exis [facility] lindsay essential [place], htn comp 120, [id number], , second [place], [place] [id number] weeks [place], tel:[phone] gestation of [id number] , [place]. tel: [phone] Leticia Huizar Suprvsn of preg w July-3 Mendoza In Womens Ultrasound insufficient - Fern. Health SANA, antenat care, 7 700 PO Box second Medical 1522, triSupervision of [facility], other high risk [place], pregnancies, 120, [id number], second [place], trimesterPre-exis [place], tel: tinhenry essential [phone] 196790 htn comp , [place]. , second tel: [id number] weeks [phone] gestation of [facility] Supervision of Apr-2 Mendoza In Womens other high risk 5-201 Fern. [facility], pregnancies, 7 700 PO Box second Medical 1522, trimesterPre-exis [place] ford Mariscal essential , [facility] ZARA, htn comp 120, [id number], , second [place], [id number] weeks [place], tel: gestation of [phone] 196790 , [place]. tel: [phone] Leticia Huizar Javad-2 Mendoza In Womens Follow-Up, 0-201 Fern. [facility], Routine 6 700 PO Box Medical 1522, [place] [address] [place], [facility] ZARA, 120, , [facility] [place], tel: [phone] , [place]. tel: [phone] Leticia Huizar Dec-1 Mendoza In Womens Follow-Up, 4-201 Fern. [facility], Routine 5 700 PO Box Medical 1522, [place] [address] [place], [facility] [place], 120, , [facility] [place], tel: [phone] , [place]. tel: [phone] Leticia Huizar Morbid (severe) Nov-1 Mendoza In Womens Ultrasound obesity due to 2-201 Fern. [facility], excess calories 5 700 PO Box Medical 1522, [place] [address] [place], [facility] [place], 120, [id number], [facility] [place], tel: [phone] , [place]. tel: [phone] Leticia Huizar Oct-2 Mendoza Referring In Womens 8-201 Fern. Provider: Health [facility], 5 700 Fern Mendoza PO Box Medical [place], 700 1522, [place] [address], [facility] [place], 120, [place] 120, , Bhupendra [place], [place], [place], tel: [phone]. , [place]. tel:[phone] tel: [phone] Leticia Huizar Oct-1 Mendoza Referring In Womens 4-201 Fern. Provider: Health [facility], 5 700 Fern Mendoza PO Box Medical [place], 700 1522, [place] [address], [facility] [place], 120, [place] 120, [id number], Bhupendra [place], [place], [place], tel: [phone]. , [place]. tel: tel: [phone] [facility] Jass-1 Mendoza In Womens 6-201 Fern. [facility], 5 700 [facility] Medical 1522, [address], [facility] [place], 120, [id number], [facility] [place], tel: [phone] , [place]. tel: [phone] Leticia Huizar Apr-1 Mendoza In Womens 7-201 Fern. Health SANA, 5 700 [facility] Medical 1522, [place] [address] [place], [facility] [place], 120, [id number], [facility] [place], tel:[phone] , [place]. tel: [phone] Leticia Huizar Sep-2 Mendoza In Womens 5-201 Fern. [facility], 2 700 PO Box Medical 1522, [place] [address] [place], [facility] [place], 120, [id number], [facility] [place], tel: [phone] , [place]. tel: [phone] Leticia Huizar Mar-1 Mendoza Referring In Womens 3-201 Fern. Provider: Health SANA, 2 700 Fern Mendoza PO Box Medical [place], 700 1522, [place] [address], [facility] [place], 120, [place] 120, [id number], Bhupendra [place], [place], [place], tel:[phone]. , [place]. tel: tel: [phone] Family History Family Member Diagnosis Age At [...] older Payers Payer name Insurance type Covered libertarian ID Authorization(s) [employer] [place] Medicaid [place] [id number] [facility] [id number] Medicaid [employer] [place] Medicaid [place] [id number] [facility] [id number] Medicaid [employer] [facility] [place] [id number] Medicaid Social History Type Description Quantity Date [...] Radiology Order Biophysical Profile without NST Ordered ([id number]) Future Order: Radiology Order Biophysical Profile without NST Ordered ([id number]) Future Order: Radiology Order Complete OB Ultrasound > 14 Ordered Weeks ([id number]) Future Order: Radiology Order Ultrasound OB Follow-up ([id number]) Ordered Future Order: Radiology Order Biophysical Profile without NST Ordered ([id number]) Future Order: Radiology Order Ultrasound OB Follow-up ([id number]) Ordered Future Order: Radiology Order Biophysical Profile without NST Ordered ([id number]) Future Order: Radiology Order Biophysical Profile without NST Ordered ([id number]) Future Order: Radiology Order Ultrasound OB Follow-up ([id number]) Ordered Future Order: Radiology Order Biophysical Profile without NST Ordered ([id number]) Future Order: Radiology Order Biophysical Profile without NST Ordered ([id number]) Future Order: Lab Order Pap Smear With [...]
--- OUTSIDE RECORDS SUMMARY | 2016-12-18 10:27 | External Medical Summary ---
:1990 Author Organization [employer] Care Team Providers Name Role Phone BeOralia nicole Provider Role Unavailable Allergies, Adverse Reactions, Alerts Substance Reaction Event Type Hydrocortisone hives Drug Allergy Benadryl hives Drug Allergy Steroid shots Info Not Available Non Drug Allergy hay fever Info Not Available Non Drug Allergy cotton plant (not clothes) Info Not Available Non Drug Allergy Problems Problem Type Condition ICD-9 Code Onset Dates Condition Status Problem Anxiety state, unspecified 300.00 Active Assessment Major depressive disorder, 296.32 Active recurrent episode, moderate Problem Major depressive disorder, 296.32 Active recurrent episode, moderate Assessment Anxiety state, unspecified 300.00 Active Medications Medication Code Code Instructions Start End Date Status Dosage System Date Trazodone HCl [facility] 02065-53 50 MG Orally May 18, 2- 37-01 Once a day PRN 2015 [place] [address]-49 10 MG Orally June 05, 1 tablet 50-04 Four times a day 2014 [place] [address]-40 150 MG Orally June 05, 1 tablet in 81-39 Once a day 2015 the evening Procedures Procedure Coding System Code Date OFFICE VISIT, EST-MOD. COMPLEXITY (25 MIN) CPT-4 54358 June 05, 2014 Vital Signs Date/Time: June 05, 2014 Height 66.5 in Weight 262.5 lbs Temperature 98.8 F Respiratory Rate 24 /min Blood Pressure Diastolic 90 mm Hg Blood Pressure Systolic 130 mm Hg Cardiac Monitoring Heart Rate 100 /min Results No Known Results Summary Purpose eClinicalWorks Submission
--- OUTSIDE RECORDS SUMMARY | 2016-12-18 10:27 | External Medical Summary | Continuity of Care Document ---
:1990 Author Organization [facility] Address [address] [place], [place] [id number] Phone Care Team Providers Name Role Phone [...] - stop) Clinical Status Follow-Up, Routine - Pre-existing essential htn comp - , third trimester Gestational diabetes in , - insulin controlled 32 weeks gestation of - Supervision of [...] w insufficient antenat - care, second tri Pre-existing essential htn comp - , second trimester Supervision of other high risk - pregnancies, second trimester 20 weeks gestation of - [...] third trimester 33 weeks gestation of - Pre-existing essential htn comp - , third trimester 28 weeks gestation of - Liver and biliary tract disord in - , third trimester Gestational diabetes in , - insulin controlled 30 weeks gestation of - Gestational diabetes in [...] third trimester 35 weeks gestation of - Follow-Up, Routine Pelvic Pain - Active Active Procedures Procedure Date biophys prfl w/o nstress test Results Test Name Date and Time Measure Units Reference Range Abnormal Flag Comments Unknown Advance Directives Directive Yes / No Effective Date File Name Unknown Encounters Encounter Practice Location Reason(s) Diagnoses Date Provider Care Team Description For Visit Members Leticia Huizar Gestational Sep-1 [facility] In [facility] diabetes in [facility], , 7 700 PO [address] insulin Medical 1522, [email or web address] [facility] [place], weeks gestation [place], of pregnancyOth 120, [id number], mental disorders [place], [place] complicating [place], tel:[phone] , third [id number] trimester , [place]. tel: [phone] Leticia Huizar Gestational Sep-1 [facility] In Womens Ultrasound diabetes in [facility], , 7 700 PO Box insulin Medical 1522, controlledPre-exi [facility] [place], sting essential [place], htn comp 120, [id number], , third [place], [place] [id number] weeks [place], tel:[phone] gestation of [id number] , [place]. tel: [phone] Leticia Huizar Gestational Sep-0 [facility] In Womens diabetes in [facility], , 7 700 PO Box insulin Medical 1522, [id number] [facility] [place], weeks gestation [place], of 120, , [place], tel:[phone] , [place]. tel: [phone] [facility] Pre-existing Sep-0 [facility] In Womens Ultrasound essential htn [facility], comp , 7 700 PO Box third Medical 1522, trimesterGestatio [facility] [place], community health diabetes in [place], , 120, [id number], insulin [place], [place] [id number] [place], tel:+316 weeks gestation [phone] of , [place]. tel: [phone] Leticia Hu[place] Sep-0 [facility] In [facility]omens [facility], 7 700 [address], [facility] [place], [place], 120, , [place], tel:+ [phone] , [place]. tel: [phone] Leticia Huizar Gestational Aug-3 [facility] In Womens diabetes in [facility], , 7 700 PO Box insulin Medical 1522, [email or web address] [facility] [place], weeks gestation [place], of 120, , [place], tel:[phone] , [place]. tel: [phone] Leticia [place] Supervision of Aug-3 [facility] In Womens Ultrasound other high risk [facility], pregnancies, 7 700 PO Box third Medical 1522, trimesterGestatio [facility] [place], community health diabetes in [place], , 120, [id number], insulin [place], [place] controlledPre-exi [place], tel:[phone] sting essential [id number] htn comp , [place]. , third tel:+04-21 weeks [phone] gestation of [facility] Supervision of Aug-2 [facility] In Womens other high risk [facility], pregnancies, 7 700 PO Box third Medical 1522, trimesterGestatio [facility] [place], nal diabetes in Dr, [place], , 120, , insulin [place], [place] controlledLiver [place], tel:+ and biliary tract [phone] disord in , [place]. , third tel: [id number] weeks [phone] gestation of [facility] Pre-existing Aug-2 [facility] In Womens Ultrasound essential htn 4-201 [facility], comp , 7 700 PO Box third Medical 1522, trimesterGestatio [facility] [place], nal diabetes in [place], , 120, [id number], insulin [place], [place] [email or web address] [place], tel:+[phone] weeks gestation [phone] 196790 of , [place]. tel: [phone] [facility] Gestational Aug-1 [facility] In Womens diabetes in 7-201 [facility], , 7 700 PO Box insulin Medical 1522, [email or web address] [facility] [place], weeks gestation [place], of 120, [id number], [place], tel:[phone] , [place]. tel: [phone] Leticia Huizar Supervision of Aug-1 [facility] In Womens Ultrasound other high risk 7-201 [facility], pregnancies, 7 700 PO Box third Medical 1522, trimesterPre-exis [facility], ting essential [place], htn comp 120, [id number], , third [place], trimesterGestatio [place], tel:[phone] nal diabetes in [id number] 196790 , , [place]. insulin tel: [id number] [phone] weeks gestation of [facility] Gestational Aug-1 Mendoza In Womens diabetes in 0-201 [facility], , 7 700 PO Box insulin Medical 1522, [email or web address] [facility] [place], weeks gestation [place], of 120, [id number], [place], tel:+ [phone] , [place]. tel: [phone] Leticia [place] Dillon-2 [facility] In Womens 8-201 [facility], 7 700 PO [address], [facility] [place], [place], 120, [id number], [place], tel:[phone] , [place]. tel:[phone] Leticia [place] Dillon-2 [facility] In Womens 7- [facility], 7 700 PO [address] Medical [address], [facility] [place], [place], 120, [id number], [place], tel:[phone] , [place]. tel: [phone] Leticia [place] Supervision of Dillon-2 Mendoza In Womens other high risk 7-201 [facility], pregnancies, 7 700 PO Box third Medical 1522, trimesterGestatio [facility], nal diabetes in [place], , 120, , insulin [place], [id number] [place], tel:+[phone] weeks gestation [phone] [phone] of , [place]. tel: [phone] Leticia [place] Pre-existing Dillon-2 [facility] In Womens Ultrasound essential htn - [facility], comp , 7 700 PO Box third [id number] Medical 1522, weeks gestation [facility], of pregnancyLiver [place], and biliary tract 120, , disord in [place], , third [place], tel:+ [phone] , [place]. tel: [phone] Leticia [place] Supervision of Sep-1 Mendoza In Womens other high risk 2-201 [facility], pregnancies, 7 700 PO Box second Medical 1522, [facility]Pre-exis [facility] [address], [place], htn comp 120, [id number], , second [place], [email or web address] weeks [place], tel:[phone] gestation of [id number] , [place]. tel:[phone] Leticia [place] Supervision of Jass-2 Mendoza In Womens other high risk 7-201 [facility], pregnancies, 7 700 PO Box second Medical 1522, trimesterPre-exis [place] lindsay essential [place], htn comp 120, [id number], , second [place], weeks [place], tel:[phone] gestation of [phone] [id number] , [place]. tel:[phone] Leticia [place] Supervision of May- Mendoza In Womens other high risk 1-201 [facility], pregnancies, 7 700 PO Box second Medical 1522, trimesterPre-exis [facility] [address], [place], htn comp 120, [id number], , second [place], [place] [email or web address] weeks [place], tel:[phone] gestation of [phone] [id number] , [place]. tel: [phone] Leticia [place]izar Suprvsn of preg w July- [facility]za In Womens Ultrasound insufficient 1-201 [facility], antenat care, 7 700 PO Box second Medical 1522, triPre-existing [facility] [place], ashley htn , [place], comp , 120, [id number], second [place], [place] trimesterSupervis [place], tel:[phone] ion of other high [phone] [id number] risk pregnancies, , [place]. second tel:+04-21 [id number] weeks [phone] gestation of [facility] Supervision of Apr-2 [facility]za In Womens other high risk 5-201 [facility], pregnancies, 7 700 PO Box second Medical 1522, trimesterPre-exis [facility] [address], [place], htn comp 120, [id number], , second [place], [place] [id number] weeks [place], tel:[phone] gestation of [phone] [id number] , [place]. tel: [phone] Leticia [place] Javad-2 [facility] In Womens Follow-Up, 0-201 [facility], Routine 6 700 PO Box Medical [address], [address], [place], 120, [id number], [place], tel:[phone] , [place]. tel: [phone] Leticia [place] Dec-1 [facility] In Womens Follow-Up, 4-201 [facility], Routine 5 700 PO Box Medical [address], [address], [place], 120, [id number], [place], [place], tel:[phone] , [place]. tel: [phone] Leticia [place] Morbid (severe) Nov- [facility]za In Womens Ultrasound obesity due to 2-201 [facility], excess calories 5 700 [facility] Medical 1522, [address] [place], [place], 120, [id number], [place], [place], tel: [phone] , [place]. tel: [phone] Leticia [place] Oct-2 Mendoza Referring In Womens 8-201 Fern. Provider: Health PA, 5 700 Fern Mendoza [facility], 700 1522, [address], [facility] [place], 120, [place] 120, [id number], Bhupendra [place], [place], [place], tel:[phone]. , [place]. tel: tel: [phone] Leticia [place] Oct-1 Mendoza Referring In Womens 4-201 Fern. Provider: Health [facility], 5 700 Fern Mendoza [facility], 700 1522, [place] [address], [facility] [place], 120, [place] 120, [id number], Bhupendra [place], [place], [place], tel:[phone]. , [place]. tel: tel: [phone] Leticia [place] Jass-1 Mendoza In Womens 6-201 [facility], 5 700 [facility] 1522, [address] [place], [facility] [place], 120, [id number], [place], [place], tel:[phone] , [place]. tel: [phone] Leticia [place] Apr-1 Mendoza In Womens 7-201 [facility], 5 700 [facility] Medical 1522, [address] [place], [place], 120, [id number], [place], [place], tel:[phone] , [place]. tel: [phone] Leticia [place] Sep-2 Mendoza In Womens 5-201 [facility], 2 700 [facility] Medical 1522, [address] [place], [place], 120, [id number], Bhupendra, [place], tel:[phone] , [place]. tel: [phone] Leticia [place] Mendoza Referring In Womens 3-201 Fern. Provider: Health SANA, 2 700 Fern Mendoza PO Box [facility], 700 1522, [place] [address], [facility] Dr [place], 120, [place] 120, [id number], Bhupendra [place], [place], [place], tel: [phone]. , [place]. tel: tel: [phone] Family History Family Member Diagnosis Age At [...] Insurance type Covered green party ID Authorization(s) [facility] - Medicaid MC [id number] [facility] - [id number] Medicaid [employer] [facility] - [id number] Medicaid [employer] [facility] - [id number] Medicaid Social History Type Description Quantity Date [...] Radiology Order Biophysical Profile without NST Ordered ([id number]) Future Order: Radiology Order Biophysical Profile without NST Ordered ([id number]) Future Order: Radiology Order Complete OB Ultrasound > 14 Ordered Weeks ([id number]) Future Order: Radiology Order Ultrasound OB Follow-up ([id number]) Ordered Future Order: Radiology Order Biophysical Profile without NST Ordered ([id number]) Future Order: Radiology Order Biophysical Profile without NST Ordered ([id number]) Future Order: Radiology Order Ultrasound OB Follow-up ([id number]) Ordered Future Order: Radiology Order Biophysical Profile without NST Ordered ([id number]) Future Order: Radiology Order Ultrasound OB Follow-up ([id number]) Ordered Future Order: Radiology Order Biophysical Profile without NST Ordered ([id number]) Future Order: Lab Order Pap Smear With [...]
--- OUTSIDE RECORDS SUMMARY | 2016-12-18 10:28 | External Medical Summary | Continuity of Care Document ---
:1990 Author Organization [facility] Address [address] [place], [place] [id number] Phone Care Team Providers Name Role Phone Abdiel Pacheco MD Unavailable Unavailable Allergies, Adverse Reactions, Alerts Substance Reaction Severity Status DIPHENHYDRAMINE HCL Unknown Active betamethasone Unknown Active CHLORPHENIRAMINE MALEATE Unknown Active hydrocortisone Unknown Active Medications Medication Instructions Dosage Effective Dates Status Comments (start - stop) Plus take 1 tablet by Not Available [...] insulin controlled 33 weeks gestation of - Morbid (severe) obesity [...] other high risk - pregnancies, third trimester Liver and biliary tract disord in - , third trimester Gestational diabetes in , - insulin controlled 32 weeks gestation of - Supervision of other high risk - pregnancies, third trimester Pre-existing essential htn comp - , third trimester Gestational diabetes in , - insulin controlled 33 weeks gestation of - Follow-Up, Routine Pre-existing essential htn comp - , third trimester Liver and biliary tract disord in - , third trimester 28 weeks gestation of - Gestational diabetes in , - insulin controlled 30 weeks gestation of - Gestational diabetes in , - insulin controlled 31 weeks gestation of - Gestational diabetes in , - insulin controlled Pre-existing essential htn comp - , third trimester 32 weeks gestation of - Pre-existing essential htn comp - , third trimester Gestational diabetes in , - insulin controlled 34 weeks gestation of - Gestational diabetes in , - insulin controlled 34 weeks gestation of - Pelvic Pain - Active Active Procedures Procedure Date Ultrasnd preg uterus, flwup/repeat biophys prfl w/o nstress test Results Test Name Date and Time Measure Units Reference Range Abnormal Flag Comments Unknown Advance Directives Directive Yes / No Effective Date File Name Unknown Encounters Encounter Practice Location Reason(s) Diagnoses Date Provider Care Team Description For Visit Members Leticia Huizar Gestational Sep-0 [facility] In [facility] diabetes in [facility], , 7 700 PO Box insulin Medical 1522, [email or web address] [facility], weeks gestation [place], of 120, , [place], [place], tel:+ [phone] , [place]. tel: [phone] Leticia Huizar Pre-existing Sep-0 [facility] In Womens Ultrasound essential htn [facility], comp , 7 700 PO Box third Medical 1522, trimesterGestatio [facility], nal diabetes in [place], , 120, , insulin [place], [email or web address] [place], tel:+ weeks gestation [phone] [phone] of , [place]. tel:[phone] Leticia [place] Sep-0 [facility] In [facility], 7 700 PO Box Medical 1522, [facility], [place], 120, , [place], [place], tel:+ [phone] , [place]. tel:[phone] Leticia Huizar Gestational Aug-3 [facility] In Womens diabetes in [facility], , 7 700 PO Box insulin Medical 1522, [email or web address] [facility], weeks gestation [place], of 120, , [place], [place], tel:[phone] , [place]. tel: [phone] Leticia [place] Supervision of Aug-3 [facility] In Womens Ultrasound other high risk [facility], pregnancies, 7 700 PO Box third Medical 1522, trimesterPre-exis [facility] [place], [address], [place], htn comp 120, [id number], , third [place], [place] trimesterGestatio [place], tel:+[phone] nal diabetes in [id number] 196790 , , [place]. insulin tel: [id number] [phone] weeks gestation of [facility] Supervision of Aug-2 [facility] In Womens other high risk [facility], pregnancies, 7 700 PO Box third Medical 1522, trimesterLiver [facility] [place], and biliary tract [place], disord in 120, , , third [place], [place] trimesterGestatio [place], tel:+ nal diabetes in , , [place]. insulin tel: [phone] weeks gestation of [facility] Gestational Aug-2 [facility] In Womens Ultrasound diabetes in [facility], , 7 700 PO Box insulin Medical 1522, controlledPre-exi [facility] [place], [place] [address], htn comp 120, , , third [place], [place] [email or web address] weeks [place], tel:+ gestation of , [place]. tel: [phone] Leticia Hu[place] Gestational Aug-1 [facility] In Womens diabetes in [facility], , 7 700 PO Box insulin Medical 1522, [email or web address] [facility] [place], weeks gestation [place], of 120, , [place], [place], tel:[phone] , [place]. tel: [phone] Leticia [place] Supervision of Aug-1 [facility] In Womens Ultrasound other high risk [facility], pregnancies, 7 700 PO Box third Medical 1522, trimesterPre-exis [facility] [place] [facility] [place] [address], [place], htn comp 120, , , third [place], trimesterGestatio [place], tel: nal diabetes in , , [place]. insulin tel: [phone] weeks gestation of [facility] Gestational Aug- [facility] In Womens diabetes in 0-201 [facility], , 7 700 PO Box insulin Medical 1522, [id number] [facility], weeks gestation [place], of 120, , [place], [place], tel: [phone] , [place]. tel: [phone] Leticia [place] Dillon-2 Mendoza In Womens 8-201 [facility], 7 700 PO Box Medical 1522, [facility], [place], 120, [id number], [place], [place], tel:[phone] , [place]. tel: [phone] Leticia [place] Dillon-2 [facility]endoza In Womens 7- [facility], 7 700 PO Box Medical 1522, [facility], [place], 120, , [place], [place], tel:[phone] , [place]. tel: [phone] Leticia [place] Supervision of Dillon-2 Mendoza In Womens other high risk - [facility], pregnancies, 7 700 PO Box third Medical 1522, trimesterGestatio [facility], nal diabetes in [place], , 120, , insulin [place], [email or web address] [place], tel:+ weeks gestation of , [place]. tel: [phone] Leticia [place] Pre-existing Dillon-2 Mendoza In Womens Ultrasound essential htn - [facility], comp , 7 700 PO Box third Medical 1522, trimesterLiver [facility], and biliary tract [place], disord in 120, [id number], , third [place], [email or web address] weeks [place], tel:+3162 gestation of , [place]. tel: [phone] Leticia [place] Supervision of Sep-1 Mendoza In Womens other high risk 2-201 [facility], pregnancies, 7 700 PO Box second Medical 1522, trimesterPre-exis [facility] [place] [place] [address], [place], htn comp 120, [id number], , second [place], [place] [email or web address] weeks [place], tel:[phone] gestation of [id number] , [place]. tel: [phone] Leticia [place] Supervision of Jass- Mendoza In Womens other high risk - [facility], pregnancies, 7 700 PO Box second Medical 1522, trimesterPre-exis [facility] [place] [place] [address], [place], htn comp 120, [id number], , second [place], [place] [id number] weeks [place], tel:[phone] gestation of [id number] , [place]. tel: [phone] Leticia [place] Supervision of Mendoza In Womens other high risk 1-201 [facility], pregnancies, 7 700 PO Box second Medical 1522, trimesterPre-exis [facility] [address], [place], htn comp 120, [id number], , second [place], [place] [email or web address] weeks [place], tel:+[phone] gestation of [id number] , [place]. tel: [phone] Leticia [place] Suprvsn of preg w July- Mendoza In Womens Ultrasound insufficient - [facility], antenat care, 7 700 PO Box second Medical 1522, [facility] [place], essential htn , [place], comp , 120, [id number], second [place], [place] trimesterSupervis [place], tel:+[phone] ion of other high [phone] risk pregnancies, , [place]. second tel:+04-21 [id number] weeks [phone] gestation of Associates [facility] Supervision of Jun- Mendoza In Womens other high risk 5-201 [facility], pregnancies, 7 700 PO Box second Medical 1522, trimesterPre-exis [facility] [address], [place], htn comp 120, [id number], , second [place], [place] [id number] weeks [place], tel:[phone] gestation of [phone] [id number] , [place]. tel: [phone] Leticia [place]izar Javad-2 Mendoza In Womens Follow-Up, 0-201 [facility], Routine 6 700 PO Box Medical 15[address], [place] [address] [place], [place], 120, [id number], [place], [place], tel:[phone] , [place]. tel: [phone] Leticia Hu[place] Dec-1 Mendoza In Womens Follow-Up, 4-201 [facility], Routine 5 700 PO Box Medical [address]22, [address], [facility] [place], 120, [id number], [facility] [place], tel:[phone] , [place]. tel: [phone] Leticia [place] Morbid (severe) Nov-1 Mendoza In Womens Ultrasound obesity due to 2-201 [facility], excess calories 5 700 PO [place] [facility] 1522, [address], [facility] [place], 120, [id number], [facility] [place], tel:[phone] , [place]. tel: [phone] Leticia [place] Oct-2 Mendoza Referring In Womens 8-201 Fern. Provider: Lan HOOD, 5 700 Fern Mendoza PO [facility] , 700 1522, [place] [address], [facility] [place], 120, [place] 120, [id number], Bhupendra [place], [facility], [place], tel: [phone]. , [place]. tel: tel: [phone] Leticia [place] Oct-1 Mendoza Referring In Womens 4-201 Fern. Provider: Lan HOOD, 5 700 Fern Mendoza PO [facility] [employer] [employer], 700 1522, [place] [address], [facility] Dr [place], 120, [place] 120, [id number], Bhupendra [place], [facility], [place], tel: [phone]. , [place]. tel: tel: [phone] Leticia [place] Jass-1 Mendoza In Womens 6-201 [facility], 5 700 PO Box Medical 1522, [place] [address] [place], [facility] [place], 120, [id number], [facility] [place], tel:+ [phone] , [place]. tel: [phone] Leticia [place] Apr-1 Mendoza In Womens 7-201 [facility], 5 700 PO Box Medical 15[address], [place] [address] [place], [facility] [place], 120, [id number], [facility] [place], tel:[phone] , [place]. tel: [phone] Leticia [place] Sep-2 Mendoza In Womens 5-201 [facility], 2 700 PO Box Medical 1522, [place] [address] [place], [facility] [place], 120, [id number], [facility] [place], tel:+ [phone] , [place]. tel: [phone] Leticia Hu[place] Mar- Mendoza Referring In Womens 3-201 Fern. Provider: Health PA, 2 700 Fern Mendoza PO [place] [facility], 700 1522, [place] [address], [facility] [place], 120, [place] 120, [id number], Bhupendra [place], [place], [place], tel: [phone]. , [place]. tel: tel: [phone] Family History Family Member Diagnosis Age At [...] older Payers Payer name Insurance type Covered republican ID Authorization(s) [facility] - Medicaid [place] [id number] [facility] [id number] Medicaid [employer] - [place] [id number] Medicaid [employer] - [id number] Medicaid Social History Type Description Quantity Date [...] Tobacco cessation counseling completed Referral Ordered: ordered Cardona MarEndocrinology, Diabetes and Metabolism (related to Gestational diabetes in , insulin controlled) Referral Ordered: ordered Refer to Physical Therapyfor Evaluate & Treat Appointment Dariel Espinosa BOOKED Appointment Dariel Espinosa BOOKED Appointment Dariel Espinosa BOOKED Appointment Dariel Espinosa BOOKED Appointment Dariel Espinosa BOOKED Appointment Dariel Espinosa BOOKED Future Order: Radiology Order Ultrasound OB Follow-up ([id number]) Ordered Future Order: Radiology Order Biophysical Profile without NST Ordered ([id number]) Future Order: Radiology Order Biophysical Profile without NST Ordered ([id number]) Future Order: Radiology Order Complete OB Ultrasound > 14 Ordered Weeks ([id number]) Future Order: Radiology Order Biophysical Profile without NST Ordered ([id number]) Future Order: Lab Order Pap Smear With HPV Reflex If Ordered ASCUS ([id number]) Future Order: Radiology Order Ultrasound OB Follow-up ([id number]) Ordered Future Order: Radiology Order Biophysical Profile without NST Ordered ([id number]) Future Order: Radiology Order Biophysical Profile without NST Ordered ([id number]) Date Type Problem Goal Intervention Status Start [...]
--- OUTSIDE RECORDS SUMMARY | 2016-12-18 10:28 | External Medical Summary | Continuity of Care Document ---
:1990 Author Organization [facility] Address [address] [place], [place] [id number] Phone Care Team Providers Name Role Phone [...] - stop) Clinical Status Follow-Up, Routine - Gestational diabetes in , - insulin controlled 34 weeks gestation of - Supervision of other high risk - pregnancies, second trimester Pre-existing essential htn comp - , second trimester 26 weeks gestation of - Gestational diabetes in , - insulin controlled 33 weeks gestation of - Gestational diabetes in , - insulin controlled Oth mental disorders complicating - , third trimester 35 weeks gestation of - Morbid (severe) obesity [...] second trimester 24 weeks gestation of - Pre-existing essential htn comp - , third trimester Liver and biliary tract disord in - , third trimester 28 weeks gestation of - Supervision of [...] insulin controlled 33 weeks gestation of - Pre-existing essential htn comp - , third trimester Gestational diabetes in , - insulin controlled 36 weeks gestation of - Supervision of other high risk - pregnancies, third trimester Gestational diabetes in , - insulin controlled Liver and biliary tract disord in - , third trimester 36 weeks gestation of - Follow-Up, Routine [...] essential htn comp - , third trimester 34 weeks gestation of - Gestational diabetes in , - insulin controlled Pre-existing essential htn comp - , third trimester 35 weeks gestation of - Pelvic Pain - Active Active Procedures Procedure Date OB Visit No Charge Results Test Name Date and Time Measure Units Reference Range Abnormal Flag Comments Unknown Advance Directives Directive Yes / No Effective Date File Name Unknown Encounters Encounter Practice Location Reason(s) Diagnoses Date Provider Care Team Description For Visit Members [facility] Supervision of Jeremie Referring In Womens other high risk 8-201 Lety. Provider: [facility], pregnancies, 7 700 Fern Mendoza [address] [facility] Medical K, 700 0442, trimesterGestatio [place] [facility] jo Maris[address] diabetes in Dr, [place] [address] ZUÑIGA, , 120, [place] 120, [id number], insulin Bhupendra [place], controlledLiver ZARA, ZARA, tel:[phone] and biliary tract [id number]. [id number] disord in , [place]. tel:[phone] , third tel:[phone] [id number] weeks [id number] gestation of [facility] Pre-existing Sep-1 Mendoza In Womens Ultrasound essential htn [place], comp , 7 700 [address] third Medical 1522, trimesterGestatio [facility] [place], nal diabetes in [place], , 120, [id number], insulin [place], [place] [email or web address] [place], tel:[phone] weeks gestation [id number] of , [place]. tel: [phone] [facility] Gestational Sep-1 Mendoza In Womens diabetes in [place], , 7 700 PO Box insulin Medical 1522, controlledOth Center [place], mental disorders [place], complicating 120, [id number], , third [place], [place] [email or web address] weeks [place], tel:[phone] gestation of [phone] [id number] , [place]. tel: [phone] [facility] Gestational Sep-1 Mendoza In Womens Ultrasound diabetes in [place], , 7 700 PO Box insulin Medical 1522, controlledPre-exi [facility] [place], sting essential [place], htn comp 120, [id number], , third [place], [place] [email or web address] weeks [place], tel:[phone] gestation of [id number] , [place]. tel: [phone] [facility] Gestational Sep-0 Mendoza In Womens diabetes in [place], , 7 700 PO Box insulin Medical 1522, [email or web address] Center [place], weeks gestation [place], of 120, [id number], [place], tel:[phone] , [place]. tel: [phone] [facility] Gestational Sep-0 Mendoza In Womens Ultrasound diabetes in [place], , 7 700 PO Box insulin Medical 1522, controlledPre-exi [facility] [place], sting essential [place], htn comp 120, [id number], , third [place], [place] [email or web address] weeks [place], tel:[phone] gestation of [phone] , [place]. tel: [phone] Leticia Huizar Sep-0 Mendoza In Womens Fern. [facility], 7 700 PO Box Medical 1522, [facility], [place], 120, , [place], tel:[phone] , [place]. tel: [phone] Leticia Huizar Gestational Aug-3 Mendoza In Womens diabetes in [facility], , 7 700 PO Box insulin Medical 1522, [email or web address] Center [place], weeks gestation [place], of 120, , [place], tel:+ [phone] , [place]. tel: [phone] Leticia Huizar Supervision of Aug-3 Mendoza In Womens Ultrasound other high risk [facility], pregnancies, 7 700 PO Box third Medical 1522, trimesterPre-exis [facility], dorothyg essential [place], htn comp 120, , , third [place], [place] trimesterGestatio [place], tel:[phone] nal diabetes in [phone] [id number] , , [place]. insulin tel: [id number] [phone] weeks gestation of [facility] Supervision of Aug-2 Mendoza In Womens other high risk [place], pregnancies, 7 700 PO Box third Medical 1522, trimesterLiver [facility], and biliary tract [place], disord in 120, , , third [place], trimesterGestatio [place], tel:[phone] nal diabetes in [phone] [id number] , , [place]. insulin tel: [id number] [phone] weeks gestation of [facility] Gestational Aug-2 Mendoza In Womens Ultrasound diabetes in [place], , 7 700 PO Box insulin Medical 1522, controlledPre-exi [facility], sting essential [place], htn comp 120, [id number], , third [place], [place] [email or web address] weeks [place], tel:[phone] gestation of [phone] [id number] , [place]. tel: [phone] Leticia Huizar Gestational Aug-1 Mendoza In Womens diabetes in 7- [place], , 7 700 PO Box insulin Medical 1522, [email or web address] [facility], weeks gestation [place], of 120, , [place], [place], tel:[phone] , [place]. tel: [phone] Leticia Huizar Supervision of Oct- Mendoza In Womens Ultrasound other high risk - [place], pregnancies, 7 700 PO Box third Medical 1522, trimesterPre-exis [facility] [place], ting essential , [place], htn comp 120, , , third [place], trimesterGestatio [place], tel:+ nal diabetes in , , [place]. insulin tel: [id number] [phone] weeks gestation of [facility] Gestational Aug-1 Mendoza In Womens diabetes in 0-201 [place], , 7 700 PO Box insulin Medical 1522, [email or web address] [facility], weeks gestation [place], of 120, , [place], tel:[phone] , [place]. tel: [phone] Leticia Huizar Sep-2 Mendoza In Womens 8- [place], 7 700 PO Box Medical [address], [place] [address] [place], 120, , [place], tel:+ [phone] , [place]. tel: [phone] Leticia Huizar Dillon-2 Mendoza In Womens 7- [place], 7 700 PO Box Medical 15[address], [place] [address] [place], 120, [id number], [place], tel:[phone] , [place]. tel: [phone] Leticia Huizar Supervision of Sep-2 Mendoza In Womens other high risk 7- [place], pregnancies, 7 700 PO Box third Medical 1522, trimesterGestatio [facility], nal diabetes in [place], , 120, , insulin Bhupendra, [place], tel:[phone] weeks gestation [phone] [phone] of , [place]. tel: [phone] [facility] Pre-existing Sep-2 Mendoza In Womens Ultrasound essential htn [facility], comp , 7 700 PO Box third Medical 1522, trimesterLiver [facility] [place], and biliary tract [place], disord in 120, [id number], , third [place], [place] [email or web address] weeks [place], tel:[phone] gestation of [phone] [id number] , [place]. tel:[phone] Leticia Hu[place] Supervision of Sep- Mendoza In Womens other high risk 2-201 Fern. [facility], pregnancies, 7 700 PO Box second Medical 1522, [facility]is [facility] essential [place], htn comp 120, [id number], , second [place], [place] [email or web address] weeks [place], tel:[phone] gestation of [phone] , [place]. tel: [phone] Leticia Huizar Supervision of Jass-2 Mendoza In Womens other high risk - Fern. [facility], pregnancies, 7 700 PO Box second Medical 1522, [facility]is [facility], [place] [address], htn comp 120, [id number], , second [place], [place] [email or web address] weeks [place], tel:[phone] gestation of [phone] , [place]. tel: [phone] Leticia Huizar Supervision of July- Mendoza In Womens other high risk -201 Fern. [facility], pregnancies, 7 700 PO Box second Medical 1522, trimesterPre-exis [facility] [address], Ste [place], htn comp 120, [id number], , second [place], [place] [id number] weeks [place], tel:[phone] gestation of [phone] , [place]. tel:[phone] Leticia Huizar Suprvsn of preg w July-3 Mendoza In Womens Ultrasound insufficient - Fern. Health [facility]NA, antenat care, 7 700 PO Box second Medical 1522, triSupervision of [facility], other high risk [place], pregnancies, 120, [id number], second [place], trimesterPre-exis [place], tel: ting essential [phone] htn comp , [place]. , second tel: [id number] weeks [phone] gestation of [facility] Supervision of Apr-2 Mendoza In Womens other high risk 5-201 Fern[facility], pregnancies, 7 700 PO Box second Medical 1522, trimesterPre-exis [place], [address], [facility] [place], htn comp 120, [id number], , second [facility] weeks [place], tel: gestation of [phone] , [place]. tel: [phone] Leticia [place] Javad-2 Mendoza In Womens Follow-Up, 0-201 [facility], Routine 6 700 PO Box Medical 15[address], [place] [address] [place], [facility] [place], 120, , [facility] [place], tel:[phone] , [place]. tel: [phone] Leticia Huizar Dec-1 Mendoza In Womens Follow-Up, 4-201 [facility], Routine 5 700 PO [place] [facility] 1522, [address] [address] [place], [facility] [place], 120, , [facility] [place], tel: [phone] , [place]. tel: [phone] Leticia Huizar Morbid (severe) Nov-1 Mendoza In Womens Ultrasound obesity due to 2-201 Fern. [facility]NA, excess calories 5 700 PO [place] [facility] 1522, [address] [place], [facility] [place], 120, [id number], [facility] [place], tel: [phone] , [place]. tel: [phone] Leticia Huizar Oct-2 Mendoza Referring In Womens 8-201 Fern. Provider: Health SANA, 5 700 Fern Mendoza PO Box Medical K, 700 1522, [place] [address], [facility] [place], 120, [place] 120, , Bhupendra [place], [place], [place], tel:[phone]. , [place]. tel: tel: [phone] Leticia Huizar Oct-1 Mendoza Referring In Womens 4-201 Fern. Provider: [facility], 5 700 Fren Mendoza PO [place] [facility] K, 700 1522, [place] [address], [facility] [place], 120, [place] 120, [id number], Bhupendra [place], [place], [place], tel:[phone]. , [place]. tel: tel: [phone] [facility] Jass-1 Mendoza In Womens 6-201 Fern. [facility], 5 700 [facility] 1522, [address], [facility] [place], 120, [id number], [facility] [place], tel:[phone] , [place]. tel: [phone] Leticia Huizar Apr-1 Mendoza In Womens 7-201 Fern. [facility], 5 700 [facility] 1522, [place] [address] [place], [facility] [place], 120, , [facility] [place], tel:[phone] , [place]. tel: [phone] Leticia Huizar Sep-2 Mendoza In Womens 5-201 Fern. [facility], 2 700 [facility] 1522, [address] [address] [place], [facility] [place], 120, [id number], [facility] [place], tel:[phone] , [place]. tel: [phone] Leticia Huizar Mar-1 Mendoza Referring In Womens 3-201 Fern. Provider: Health [facility], 2 700 Fern Mendoza PO [place] [facility] K, 700 1522, [place] [address], [facility] [place], 120, [place] 120, [id number], Bhupendra [place], [place], [place], tel:[phone]. , [place]. tel: tel: [phone] Family History Family Member Diagnosis Age At [...] older Payers Payer name Insurance type Covered constitution party ID Authorization(s) [employer] [place] - Medicaid [place] [id number] [facility] [id number] Medicaid [employer] [place] [id number] [facility] [id number] Medicaid [facility] [place] [id number] Medicaid Social History Type Description Quantity Date Captured Alcohol Use Details No Caffeine Use Details Unknown Tobacco Use Status Smoking Status Current every day smoker Vital Signs Date / Height Weight BMI Pulse Blood Temperature Respiratory Body Head BMI Time: Rate Pressure Rate Surface Circumference percentile Area 291.00 47.9 137/88 lbs 8 mm[Hg] 1:14 kg/m PM eter (2) Chief Complaint And Reason For Visit Unknown Chief Complaint And Reason For Visit Reason For Referral Reason For Referral Unknown Plan Of Care Date Type Action Status Goal Tobacco cessation counseling completed Goal Tobacco cessation counseling completed Referral Ordered: ordered Javad CardonaEndocrinology, Diabetes and Metabolism (related to Gestational diabetes in , insulin controlled) Referral Ordered: ordered Refer to Physical Therapyfor Evaluate & Treat Appointment Dariel Espinosa KEPT Future Order: Radiology Order Biophysical Profile without NST Ordered ([id number]) Future Order: Radiology Order Complete OB Ultrasound > 14 Ordered Weeks ([id number]) Future Order: Radiology Order Ultrasound OB Follow-up ([id number]) Ordered Future Order: Radiology Order Ultrasound OB Follow-up ([id number]) Ordered Future Order: Radiology Order Biophysical Profile without NST Ordered ([id number]) Future Order: Radiology Order Biophysical Profile without NST Ordered ([id number]) Future Order: Radiology Order Biophysical Profile without NST Ordered ([id number]) Future Order: Lab Order Pap Smear With HPV Reflex If Ordered ASCUS ([id number]) Future Order: Radiology Order Biophysical Profile without NST Ordered ([id number]) Future Order: Radiology Order Biophysical Profile without NST Ordered ([id number]) Future Order: Radiology Order Ultrasound OB Follow-up ([id number]) Ordered Future Order: Radiology Order Biophysical Profile without NST Ordered ([id number]) Date Type Problem Goal Intervention Status Start [...]
--- OUTSIDE RECORDS SUMMARY | 2016-12-18 10:28 | External Medical Summary | Continuity of Care Document ---
:1990 Author Organization [facility] Address [address] [place], [place] [id number] Phone Care Team Providers Name Role Phone Abdiel Pacheco MD Unavailable Unavailable Allergies, Adverse Reactions, Alerts Substance Reaction Severity Status DIPHENHYDRAMINE HCL Unknown Active betamethasone Unknown Active CHLORPHENIRAMINE MALEATE Unknown Active hydrocortisone Unknown Active Medications Medication Instructions Dosage Effective Dates Status Comments (start - stop) Plus take 1 tablet by Not Available - Active (calcium oral route every carbonate) 27 mg day iron-1 mg tablet Flovent HFA 110 inhale 1- 2 puff - Active mcg/actuation by INHALATION aerosol inhaler route 2 times every day Novolog Mix 70-30 inject by - Active FlexPen 100 subcutaneous route unit/mL as per insulin subcutaneous pen protocol Pen Needle 31 - Active gauge x 1/4" ProAir HFA 90 inhale 2 puff by - Active mcg/actuation inhalation route aerosol inhaler every 4 - 6 hours as needed Prilosec OTC 20 mg take 1 Capsule by Not Available - Active tablet,delayed Oral route every release day Macrobid 100 mg take 1 capsule PO - No Longer capsule BID Active Problems Condition Effective Dates (start - stop) [...] Team Description For Visit Members [facility] Gestational Sep-0 [facility] In [facility]om[facility] diabetes in [facility], , 7 700 PO Box insulin Medical 1522, [email or web address] [facility], weeks gestation [place], of 120, , [place], [place], tel:+ [phone] , [place]. tel: [phone] [facility] Pre-existing Sep-0 [place] In Womens Ultrasound essential htn [facility], comp , 7 700 PO Box third Medical 1522, trimesterGestatio [facility], nal diabetes in [place], , 120, , insulin [place], [email or web address] [place], tel:+ weeks gestation [phone] of , [place]. tel: [phone] Leticia [place] Sep-0 [facility] In W[facility], 7 700 PO Box Medical [address]22, [facility], [place], 120, [id number], [facility] [place], tel:+ [phone] , [place]. tel: [phone] Leticia [place] Gestational Aug-3 [facility] In Womens diabetes in [facility], , 7 700 PO Box insulin Medical 1522, [email or web address] [facility], weeks gestation [place], of 120, , [place], tel:[phone] , [place]. tel: [phone] Leticia [place] Supervision of Aug-3 [facility] In Womens Ultrasound other high risk [place], pregnancies, 7 700 PO Box third Medical 1522, trimesterPre-exis [facility] [place], ting essential [place], htn comp 120, , , third [place], [place] trimesterGestatio [place], tel:[phone] nal diabetes in , , [place]. insulin tel: [id number] [phone] weeks gestation of [facility] Supervision of Aug-2 [place] In Womens other high risk [place], pregnancies, 7 700 PO Box third Medical 1522, trimesterLiver [facility] [place], and biliary tract [place], disord in 120, , , third [place], [place] trimesterGestatio [place], tel: nal diabetes in , , [place]. insulin tel: [id number] [phone] weeks gestation of [facility] Gestational Aug-2 [place] In Womens Ultrasound diabetes in [place], , 7 700 PO Box insulin Medical 1522, controlledPre-exi [facility] [place], sting essential [place], htn comp 120, , , third [place], [place] [email or web address] weeks [place], tel: gestation of , [place]. tel: [phone] Leticia [place] Gestational Aug-1 [place] In Womens diabetes in [place], , 7 700 PO Box insulin Medical 1522, [facility] [place], weeks gestation [place], of 120, , [place], tel:[phone] , [place]. tel: [phone] Leticia [place] Supervision of Aug-1 [place] In Womens Ultrasound other high risk [place], pregnancies, 7 700 PO Box third Medical 1522, trimesterGestatio [facility] [place], nal diabetes in [place], , 120, [id number], insulin [place], [place] controlledPre-exi [place], tel:+ sting essential [phone] htn comp , [place]. , third tel: [id number] weeks [phone] gestation of [facility] Gestational Aug-1 [place] In Womens diabetes in 0-201 [facility], , 7 700 PO Box insulin Medical 1522, [email or web address] [facility], weeks gestation [place], of 120, , [place], tel:+ [phone] , [place]. tel: [phone] Leticia [place] Dillon-2 [facility] In Womens 8-201 [facility], 7 700 PO Box Medical 1522, [facility], [place], 120, [id number], [place], [place], tel:[phone] , [place]. tel: [phone] Leticia [place] Dillon-2 [place] In Womens 7-201 [facility], 7 700 PO Box Medical 1522, [facility], [place], 120, [id number], [place], tel:[phone] , [place]. tel: [phone] Leticia [place] Supervision of Dillon-2 [facility] In Womens other high risk - [facility], pregnancies, 7 700 PO Box third Medical 1522, trimesterGestatio [facility], nal diabetes in [place], , 120, , insulin [place], [place] [email or web address] [place], tel:+[phone] weeks gestation of , [place]. tel: [phone] Leticia [place] Pre-existing Dillon-2 [place] In Womens Ultrasound essential htn - [facility], comp , 7 700 PO Box third Medical 1522, trimesterLiver [facility], and biliary tract [place], disord in 120, [id number], , third [place], [place] weeks [place], tel:+[phone] gestation of , [place]. tel: [phone] Leticia [place] Supervision of Dillon- [facility] In Womens other high risk 2-201 [facility], pregnancies, 7 700 PO Box second Medical 1522, trimesterPre-exis [facility] [address], [place], htn comp 120, [id number], , second [place], [place] [id number] weeks [place], tel:[phone] gestation of [phone] , [place]. tel: [phone] Leticia [place] Supervision of Jass- [place]za In Womens other high risk 7-201 [facility], pregnancies, 7 700 PO Box second Medical 1522, trimesterPre-exis [facility] [address], [place], htn comp 120, [id number], , second [place], [place] [email or web address] weeks [place], tel:+[phone] gestation of [id number] , [place]. tel: [phone] Leticia [place] Supervision of July- [facility] In Womens other high risk 1-201 [facility], pregnancies, 7 700 PO Box second Medical 1522, trimesterPre-exis [facility] [address], [place], htn comp 120, [id number], , second [place], [place] [id number] weeks [place], tel:+[phone] gestation of [phone] , [place]. tel: [phone] Leticia [place] Suprvsn of preg w July- [facility] In Womens Ultrasound insufficient - [facility], antenat care, 7 700 PO Box second Medical 1522, [facility] [place], essential htn , [place], comp , 120, [id number], second [place], [place] trimesterSupervis [place], tel:[phone] ion of other high [phone] risk pregnancies, , [place]. second tel:+04-21 [id number] weeks [phone] gestation of [facility] Supervision of Jun- [place] In Womens other high risk 5-201 [facility], pregnancies, 7 700 PO Box second Medical 1522, trimesterPre-exis [facility] [address], [place], htn comp 120, [id number], , second [place], [place] [email or web address] weeks [place], tel:+[phone] gestation of , [place]. tel: [phone] Leticia [place] Javad-2 [facility] In Womens Follow-Up, 0-201 [facility], Routine 6 700 PO Box Medical 15[address], [address] [place], [facility] [place], 120, [id number], [place], [place], tel:[phone] , [place]. tel: [phone] Leticia [place] Dec-1 [place] In Womens Follow-Up, 4-201 [facility], Routine 5 700 PO Box Medical 1522, [address] [place], [facility] [place], 120, [id number], [facility] [place], tel:[phone] , [place]. tel: [phone] Leticia [place] Morbid (severe) Nov-1 [place] In Womens Ultrasound obesity due to 2-201 [facility], excess calories 5 700 PO [facility] Medical 15[address], [address], [facility] [place], 120, [id number], [facility] [place], tel:[phone] , [place]. tel: [phone] Leticia [place] Oct-2 [place]za Referring In Womens 8-201 Fern. Provider: Lan HOOD, 5 700 [place] PO Box Medical K, 700 1522, [address], [facility] [place], 120, [place] 120, [id number], Bhupendra [place], [facility], [place], tel: [phone]. , [place]. tel: tel: [phone] Leticia [place] Oct-1 [place]za Referring In Womens 4-201 Fern. Provider: Lan HOOD, 5 700 Fern [place] PO Box Medical K, 700 1522, [address], [facility] Dr [place], 120, [place] 120, [id number], Bhupendra [place], [place], [place], tel: [phone]. , [place]. tel: tel: [phone] Leticia [place] Jass-1 [place] In Womens 6-201 [facility], 5 700 PO Box Medical 1522, [address] [place], [facility] [place], 120, [id number], [facility] [place], tel:+ [phone] , [place]. tel: [phone] Leticia [place] Apr-1 [place] In Womens 7-201 [facility], 5 700 PO Box Medical 1522, [address] [place], [facility] [place], 120, [id number], [facility] [place], tel:[phone] , [place]. tel: [phone] Leticia [place] Sep-2 [place] In Womens 5-201 [facility], 2 700 PO Box Medical 1522, [address] [place], [facility] [place], 120, [id number], [facility] [place], tel:+ [phone] , [place]. tel: [phone] Leticia [place] Mar- Mendoza Referring In Womens 3-201 Fern. Provider: Health [facility], 2 700 Fern [place] PO [facility] K, 700 1522, [address], [facility] [place], 120, [place] 120, [id number], Bhupendra [place], [place], [place], tel: [phone]. , [place]. tel: tel: [phone] Family History Family Member Diagnosis Age At [...] type Covered green party ID Authorization(s) [facility] - Medicaid MC [id number] [facility] - [id number] Medicaid [employer] [facility] - [id number] Medicaid [employer] [facility] - [id number] Medicaid Social History Type Description Quantity Date Captured Alcohol Use Details No Caffeine Use Details Unknown Tobacco Use Status Smoking Status Current every day smoker Vital Signs Date / Height Weight BMI Pulse Blood Temperature Respiratory Body Head BMI Time: Rate Pressure Rate Surface Circumference percentile Area 279.30 46.0 136/86 -2017 lbs 5 mm[Hg] 10:53 kg/m AM eter (2) 279.30 46.0 -2017 lbs 5 10:42 kg/m AM eter (2) Chief Complaint And Reason For Visit Unknown Chief Complaint And Reason For Visit Reason For Referral Reason For Referral Unknown Plan Of Care Date Type Action Status Goal Tobacco cessation counseling completed Goal Tobacco cessation counseling completed Referral Ordered: ordered Dulce Mar -Endocrinology, Diabetes and Metabolism (related to Gestational diabetes in , insulin controlled) Referral Ordered: ordered Refer to Physical Therapyfor Evaluate & Treat Appointment Dariel Espinosa BOOKED Appointment Dariel Espinosa BOOKED Appointment Dariel Espinosa BOOKED Appointment Dariel Espinosa BOOKED Appointment Dariel Espinosa BOOKED Appointment Dariel Espinosa BOOKED Future Order: Radiology Order Biophysical Profile without NST Ordered ([id number]) Future Order: Radiology Order Complete OB Ultrasound > 14 Ordered Weeks ([id number]) Future Order: Radiology Order Ultrasound OB Follow-up ([id number]) Ordered Future Order: Radiology Order Biophysical Profile without NST Ordered ([id number]) Future Order: Radiology Order Biophysical Profile without NST Ordered ([id number]) Future Order: Lab Order Pap Smear With HPV Reflex If Ordered ASCUS ([id number]) Future Order: Radiology Order Ultrasound OB Follow-up ([id number]) Ordered Future Order: Radiology Order Biophysical Profile without NST Ordered ([id number]) Future Order: Radiology Order Biophysical Profile without NST Ordered ([id number]) Date Type Problem Goal Intervention Status Start [...]
--- OUTSIDE RECORDS SUMMARY | 2016-12-18 10:28 | External Medical Summary ---
:1990 Author Organization eClinical[employer] Care Team Providers Name Role Phone Oralia Be Provider Role Unavailable Allergies No Known Allergies Problems Problem Type Condition ICD-9 Code Onset Dates Condition Status Problem Anxiety state, unspecified 300.00 Active Problem Major depressive disorder, 296.32 Active recurrent episode, moderate Medications No Known Medications Results No Known Results Summary Purpose eClinicalWorks Submission
--- OUTSIDE RECORDS SUMMARY | 2016-12-18 10:28 | External Medical Summary | Continuity of Care Document ---
:1990 Author Organization [facility] Address [address] [place], [place] [id number] Phone Care Team Providers Name Role Phone [...] Active tablet,delayed Oral route every release day ONE DAILY take 1 tablet by - No Longer (unknown strength) oral route every Active day Problems Condition Effective Dates (start - stop) Clinical Status Follow-Up, Routine - Gestational diabetes in , - insulin controlled 30 weeks gestation of - Supervision of other [...] second trimester 20 weeks gestation of - Pre-existing essential htn comp - , second trimester Supervision of other high risk - pregnancies, second trimester 24 weeks gestation of - [...] insulin controlled 32 weeks gestation of - Pre-existing essential htn comp - , third trimester Supervision of other high risk - pregnancies, third trimester Gestational diabetes in , - insulin controlled 33 weeks gestation of - Follow-Up, Routine Liver and biliary tract disord in - , third trimester Pre-existing essential htn comp - , third trimester 28 weeks gestation of - Gestational diabetes in , - insulin controlled 31 weeks gestation of - Pre-existing essential htn comp - , third trimester Gestational diabetes in , - insulin controlled 32 weeks gestation of - Pelvic Pain - Active Active Procedures Procedure Date OB Visit No Charge Results Test Name Date and Time Measure Units Reference Range Abnormal Flag Comments Panel Description: TSH W/REFLEX TO FT4 TSH W/REFLEX TO FT4 10:44:00 1.93 mIU/L N Reference Range > or=20 Years 0.40-4.50 Ranges First trimester 0.26-2.66 Second trimester 0.55-2.73 Third trimester 0.43-2.91Test performed at [facility] [id number] [place] [id number]: ASHLY MAIER DO,MPH Panel Description: Bacteria identified in Urine by Culture CULTURE, URINE, 11:00:00 SEE NOTE CULTURE, URINE, ROUTINE ROUTINE MICRO NUMBER: [id number] TEST STATUS: FINAL SPECIMEN SOURCE: URINE SPECIMEN QUALITY: ADEQUATE RESULT: Multiple organisms present, each less than 10,000 CFU/mL. These organisms, commonly found on external and internal genitalia, are considered to be colonizers. No further testing performed.REPORT COMMENT:RTest performed at [facility] [address] [id number]: ASHLY MAIER DO,MPH Advance Directives Directive Yes / No Effective Date File Name Unknown Encounters Encounter Practice Location Reason(s) Diagnoses Date Provider Care Team Description For Visit Members Leticia [place] Gestational Oct-3 [place] In Womens diabetes in [facility]. [facility], , 7 700 PO Box insulin Medical 1522, [email or web address] [facility], weeks gestation [place], of 120, [id number], [place] ZARA [place], tel:[phone] , [place]. tel: [phone] Leticia [place] Pre-existing Oct-3 [place] In Womens Ultrasound essential htn [facility], comp , 7 700 PO Box third Medical 1522, trimesterSupervis [facility], ion of other high [place], risk pregnancies, 120, [id number], third [place], [place] trimesterGestatio [place], tel:[phone] nal diabetes in , , [place]. insulin tel:+04-21 [phone] weeks gestation of Associates [facility] Supervision of Aug-2 [place] In Womens other high risk [facility], pregnancies, 7 700 PO Box third Medical 1522, trimesterLiver [facility], and biliary tract [place], disord in 120, [id number], , third [place], [place] trimesterGestatio [place], tel:[phone] nal diabetes in [id number] , , [place]. insulin tel: [phone] weeks gestation of [facility] Pre-existing Aug-2 [place] In Womens Ultrasound essential htn [facility], comp , 7 700 PO Box third Medical 1522, trimesterGestatio [facility] [place], nal diabetes in [place], , 120, [id number], insulin [place], [email or web address] [place], tel:+[phone] weeks gestation of , [place]. tel: [phone] Leticia [place] Gestational Aug-1 [place] In Womens diabetes in [place], , 7 700 PO Box insulin Medical 1522, [email or web address] [facility], weeks gestation [place], of 120, , [place], [place], tel:[phone] , [place]. tel: [phone] Leticia [place] Supervision of Aug-1 [place] In Womens Ultrasound other high risk [facility], pregnancies, 7 700 PO Box third Medical 1522, trimesterPre-exis [facility] [place], ting essential [place], htn comp 120, [id number], , third [place], [place] trimesterGestatio [place], tel:[phone] nal diabetes in [id number] , , [place]. insulin tel: [phone] weeks gestation of [facility] Gestational Aug-1 [place] In Womens diabetes in 0-201 [place], , 7 700 PO Box insulin Medical 1522, [email or web address] [facility], weeks gestation [place], of 120, [id number], [place], tel:+ [phone] , [place]. tel: [phone] Leticia [place] Dillon-2 Mendoza In Womens 8-201 [place], 7 700 PO Box Medical 15[address], [address] [place], 120, [id number], [place], [place], tel:[phone] , [place]. tel: [phone] Leticia [place] Dillon-2 Mendoza In Womens 7-201 [place], 7 700 PO Box Medical 1522, [address] [place], 120, [id number], [place], [place], tel:+ [phone] , [place]. tel: [phone] Leticia [place] Supervision of Dillon-2 Mendoza In Womens other high risk 7- [place], pregnancies, 7 700 PO Box third Medical 1522, trimesterGestatio [facility] [place], nal diabetes in [place], , 120, , insulin [place], [id number] [place], tel:+316 weeks gestation [phone] 196790 of , [place]. tel: [phone] Leticia [place] Liver and biliary Dillon-2 Mendoza In Womens Ultrasound tract disord in [place], , third 7 700 PO Box trimesterPre-exis Medical 1522, ting essential [facility], htn comp [place], , third 120, [id number], [email or web address] weeks [place], gestation of [place], tel:[phone] [address] , [place]. tel: [phone] Leticia [place] Supervision of Dillon-1 Mendoza In Womens other high risk 2-201 [place], pregnancies, 7 700 PO Box second Medical 1522, trimesterPre-exis [place], ting essential [place], htn comp 120, [id number], , second [place], [place] weeks [place], tel:+[phone] gestation of [id number] , [place]. tel: [phone] Leticia [place] Pre-existing Jass-2 M[place] In Womens essential htn 7- [facility], comp , 7 700 PO Box second Medical 1522, trimesterSupervis [facility] [place], ion of other high [place], risk pregnancies, 120, [id number], second [place], [place] [email or web address] weeks [place], tel:+[phone] gestation of [id number] , [place]. tel:[phone] Leticia [place] Supervision of July-3 Mendoza In Womens other high risk 1-201 [facility], pregnancies, 7 700 PO Box second Medical 1522, [facility]is [facility] [facility] [place], htn comp 120, [id number], , second [place], [place] [id number] weeks [place], tel:+[phone] gestation of [id number] , [place]. tel: [phone] Leticia [place] Suprvsn of preg w July-3 Mendoza In Womens Ultrasound insufficient 1- [facility], antenat care, 7 700 PO Box second Medical 1522, triSupervision of [facility], other high risk [place], pregnancies, 120, [id number], second [place], [place] trimesterPre-exis [place], tel:[phone] ting essential [phone] htn comp , [place]. , second tel:+04-21 [id number] weeks [id number] gestation of Associates [facility] Supervision of Apr-2 [place] In Womens other high risk 5-201 [facility], pregnancies, 7 700 PO Box second Medical 1522, trimesterPre-exis [address], [place], htn comp 120, [id number], , second [place], [place] [id number] weeks [place], tel:+[phone] gestation of [id number] , [place]. tel: [phone] Leticia [place] Javad-2 Mendoza In Womens Follow-Up, 0-201 [facility], Routine 6 700 PO Box Medical 1522, [place], [place], 120, [id number], [place], tel: [phone] , [place]. tel: [phone] Associates [facility] Dec-1 [place] In Womens Follow-Up, 4-201 [facility], Routine 5 700 [facility] 1522, [address] [place], [facility] [place], 120, [id number], [place], [place], tel:[phone] , [place]. tel: [phone] Associates [facility] Morbid (severe) Nov-1 [place] In Womens Ultrasound obesity due to 2-201 [facility], excess calories 5 700 [facility] 1522, [address] [place], [facility] [place], 120, [id number], [facility] [place], tel:[phone] , [place]. tel: [phone] Associates [facility] Oct-2 M[place]za Referring In Womens 8-201 Fern. Provider: Lan HOOD, 5 700 Fern Mendoza [facility], 700 1522, [address], [facility] [place], 120, [place] 120, [id number], Bhupendra [place], [place], [place], tel: [phone]. , [place]. tel: tel: [phone] Leticia [place] Oct-1 Mendoza Referring In Womens 4-201 Fern. Provider: Lan HOOD, 5 700 Fern Mendoza [facility], 700 1522, [address], [facility] [place], 120, [place] 120, [id number], Bhupendra [place], [place], [place], tel: [phone]. , [place]. tel: tel: [phone] Associates [facility] Jass-1 [place] In Womens 6-201 [facility], 5 700 [facility] 1522, [address] [place], [facility] [place], 120, [id number], [place], [place], tel:[phone] , [place]. tel: [phone] Leticia [place] Apr-1 Mendoza In Womens 7-201 [facility], 5 700 PO Box Medical 1522, [address] [place], [facility] [place], 120, [id number], [facility] [place], tel:+ [phone] , [place]. tel: [phone] Leticia [place] Apr-0 Mendoza In Womens 1-201 [facility], 5 700 PO Box Medical 1522, [address] [place], [facility] [place], 120, [id number], [facility] [place], tel: [phone] , [place]. tel: [phone] Leticia [place] Sep-2 Mendoza In Womens 5-201 [facility], 2 700 PO Box Medical 1522, [address] [place], [facility] [place], 120, [id number], [facility] [place], tel:+ [phone] , [place]. tel: [phone] Leitcia [place] Mar-1 Mendoza Referring In Womens 3-201 Fern. Provider: Health [facility], 2 700 Fern Mendoza PO Box Medical K, 700 1522, [address], [facility] [place], 120, [place] 120, [id number], Bhupendra [place], [place], [place], tel: [phone]. , [place]. tel: tel: [phone] Family History Family Member Diagnosis Age At [...] name Insurance type Covered democrat ID Authorization(s) [facility] - Medicaid [place] [id number] [facility] - [id number] Medicaid [employer] [facility] - [place] [id number] Medicaid [facility] - [id number] Medicaid Social History Type Description Quantity Date Captured Alcohol Use Details No Caffeine Use Details Unknown Tobacco Use Status Smoking Status Current every day smoker Vital Signs Date / Height Weight BMI Pulse Blood Temperature Respiratory Body Head BMI Time: Rate Pressure Rate Surface Circumference percentile Area 274.90 45.3 146/88 lbs 2 mm[Hg] 10:20 kg/m AM eter (2) 280.00 46.1 130/78 2017 lbs 6 mm[Hg] 10:20 kg/m AM eter (2) 8 4 10:14 kg/m AM eter (2) Chief Complaint And [...] Radiology Order Biophysical Profile without NST Ordered ([id number]) Future Order: Radiology Order Complete OB Ultrasound > 14 Ordered Weeks ([id number]) Future Order: Radiology Order Ultrasound OB Follow-up ([id number]) Ordered Future Order: Radiology Order Biophysical Profile without NST Ordered ([id number]) Future Order: Radiology Order Biophysical Profile without NST Ordered ([id number]) Future Order: Lab Order Pap Smear With HPV Reflex If Ordered ASCUS ([id number]) Future Order: Radiology Order Ultrasound OB Follow-up ([id number]) Ordered Future Order: Radiology Order Biophysical Profile without NST Ordered ([id number]) Date Type Problem Goal Intervention Status Start [...]
--- OUTSIDE RECORDS SUMMARY | 2016-12-18 10:28 | External Medical Summary | Continuity of Care Document ---
:1990 Author Organization [facility] Address [address] [place], [place] [id number] Phone Care Team Providers Name Role Phone Abdiel Pacheco MD Unavailable Unavailable Allergies, Adverse Reactions, Alerts Substance Reaction Severity Status DIPHENHYDRAMINE HCL Unknown Active betamethasone Unknown Active CHLORPHENIRAMINE MALEATE Unknown Active hydrocortisone Unknown Active Medications Medication Instructions Dosage Effective Dates Status Comments (start - stop) Flovent HFA 110 inhale 1- 2 puff [...] second trimester 26 weeks gestation of - Morbid (severe) obesity [...] Description For Visit Members Leticia Huizar Gestational Mendoza In Womens diabetes in 0-201 Fern. [facility] SANA, , 7 700 PO Box insulin Medical 1522, [id number] [place], weeks gestation [place], of 120, [id number], [facility] [place], tel: [phone] , [place]. tel: [phone] Leticia Huizar Sep- Mendoza In Womens 8-201 Fern. Lan HOOD, 7 700 PO [address] Medical [address], [address], Ste [place], 120, [id number], [facility] [place], tel:[phone] , [place]. tel: [phone] Leticia Huizar Sep- Mendoza In Womens 7-201 [facility] [place], 7 700 PO Box Medical [address], [address], [place], 120, [id number], [place], tel:+ [phone] , [place]. tel:[phone] Leticia Huizar Supervision of Dillon-2 Mendoza In Womens other high risk 7-201 [facility] [place], pregnancies, 7 700 PO Box third Medical 1522, trimesterGestatio [facility] [place], nal diabetes in [place], , 120, [id number], insulin [place], [place] [email or web address] [place], tel:+316 weeks gestation [phone] of , [place]. tel:[phone] Leticia Huizar Pre-existing Dillon-2 Mendoza In Womens Ultrasound essential htn 7- [facility] [place], comp , 7 700 PO Box third Medical 1522, trimesterLiver [facility] [place], and biliary tract [place], disord in 120, , , third [place], [place] [id number] weeks [place], tel:+ gestation of [phone] , [place]. tel: [phone] Leticia Huizar Dillon-2 Mendoza In Womens 1-201 [facility], 7 700 PO Box Medical 15[address], [address] [place], 120, , [place], tel:+ [phone] , [place]. tel: [phone] Leticia Huizar Supervision of Dillon-1 Mendoza In Womens other high risk 2-201 [facility] [place], pregnancies, 7 700 PO Box second Medical 1522, trimesterPre-exis [place] ford Mariscal essential [place], htn comp 120, [id number], , second [place], [place] [id number] weeks [place], tel:+[phone] gestation of [phone] [id number] , [place]. tel: [phone] Leticia Huizar Supervision of Jass-2 Mendoza In Womens other high risk 7-201 [facility], pregnancies, 7 700 PO Box second Medical 1522, trimesterPre-exis Center [address], Ste [place], htn comp 120, [id number], , second [place], [place] [id number] weeks [place], tel:[phone] gestation of [id number] , [place]. tel: [phone] Leticia Huizar Supervision of July- Mendoza In Womens other high risk 1-201 [facility], pregnancies, 7 700 PO Box second Medical 1522, trimesterPre-exis [facility], [address], [place], htn comp 120, [id number], , second [place], [place] [id number] weeks [place], tel:+[phone] gestation of [id number] , [place]. tel: [phone] Leticia Huizar Suprvsn of preg w July- Mendoza In Womens Ultrasound insufficient - [facility], antenat care, 7 700 PO Box second Medical 1522, triSupervision of [facility], other high risk , [place], pregnancies, 120, [id number], second [place], [place] trimesterPre-exis [place], tel:[phone] ting essential [phone] htn comp , [place]. , second tel:+04-21 [id number] weeks [phone] gestation of Associates [facility] Supervision of Jun-2 Mendoza In Womens other high risk 5-201 [facility], pregnancies, 7 700 PO Box second Medical 1522, trimesterPre-exis [facility], [place], htn comp 120, [id number], , second [place], [place] [id number] weeks [place], tel:[phone] gestation of [id number] , [place]. tel: [phone] Leticia Huizar Javad-2 Mendoza In Womens Follow-Up, 0-201 [facility], Routine 6 700 PO Box Medical 15[address], [address] [place], [place], 120, [id number], [place], [place], tel:+ [phone] , [place]. tel: [phone] Leticia Huizar Feb- Mendoza In Womens Follow-Up, 4-201 [facility], Routine 5 700 PO Box Medical 15[address], [address] [place], [place], 120, [id number], [place], [place], tel:+ [phone] , [place]. tel: [phone] [facility] Morbid (severe) Nov-1 Mendoza In Womens Ultrasound obesity due to 2-201 [facility], excess calories 5 700 [facility] 1522, [address] [place], [place], 120, [id number], [place], [place], tel: [phone] , [place]. tel: [phone] Leticia Huizar Oct-2 Mendoza Referring In Womens 8-201 Fern. Provider: Health PA, 5 700 Fern Mendoza [facility], 700 1522, [place] [address], [facility] [place], 120, [place] 120, , Bhupendra [place], [place], [place], tel: [phone]. , [place]. tel: tel: [phone] [facility] Oct-1 Mendoza Referring In Womens 4-201 Fern. Provider: Health SANA, 5 700 Fern Mendoza [facility], 700 1522, [place] [address], [facility] [place], 120, [place] 120, [id number], Bhupendra [place], [place], [place], tel:[phone]. , [place]. tel: tel: [phone] Leticia Huizar Jass-1 Mendoza In Womens 6-201 [facility], 5 700 [facility] 1522, [address], [facility] [place], 120, [id number], [place], [place], tel: [phone] , [place]. tel: [phone] Leticia Huizar Apr-1 Mendoza In Womens 7-201 [facility], 5 700 [facility] 1522, [address], [facility] [place], 120, [id number], [place], [place], tel:[phone] , [place]. tel: [phone] Leticia Huizar Apr-0 Mendoza In Womens 1-201 [facility], 5 700 [facility] [address]22, [address], [place], 120, [id number], [place], [place], tel:+ [phone] , [place]. tel: [phone] Leticia Huizar Sep-2 Mendoza In Womens 5-201 [facility], 2 700 PO Box Medical [address], [address] [place], [place], 120, [id number], [place], [place], tel: [phone] , [place]. tel: [phone] Leticia Huizar May- Mendoza Referring In Womens 3-201 Fern. Provider: Health PA, 2 700 Fern Mendoza PO Box Medical K, 700 1522, [place] [address], [facility] [place], 120, [place] 120, [id number], Bhupendra [place], [place], [place], tel: [phone]. , [place]. tel: tel: [phone] Family History Family Member Diagnosis Age At [...] older Payers Payer name Insurance type Covered alliance party ID Authorization(s) [facility] - Medicaid MC [id number] [facility] - [id number] Medicaid [facility] - [id number] Medicaid [employer] [facility] - [id number] Medicaid Social History Type Description Quantity Date [...] Tobacco cessation counseling completed Referral Ordered: ordered Cardona, Javad -Endocrinology, Diabetes and Metabolism (related to Gestational diabetes in , insulin controlled) Referral Ordered: ordered Refer to Physical Therapyfor Evaluate & Treat Appointment Dariel Espinosa BOOKED Appointment Dariel Espinosa BOOKED Appointment Dariel Espinosa BOOKED Appointment Dariel Espinosa BOOKED Appointment Dariel Espinosa BOOKED Appointment Dariel Espinosa BOOKED Appointment Dariel Espinosa BOOKED Future Order: Radiology Order Biophysical Profile without NST Ordered ([id number]) Future Order: Radiology Order Complete OB Ultrasound > 14 Ordered Weeks ([id number]) Future Order: Radiology Order Ultrasound OB Follow-up ([id number]) Ordered Future Order: Lab Order Pap Smear [...]
--- OUTSIDE RECORDS SUMMARY | 2016-12-18 10:29 | External Medical Summary | Continuity of Care Document ---
:1990 Author Organization [facility] Address [address] [place], [place] [id number] Phone Care Team Providers Name Role Phone [...] pregnancies, 7 700 Fern Mendoza PO Box [facility] [place], 700 2942, trimesterGestatio [facility] [place], [facility], [place] [address] [place], , 120, [place] 120, [id number], insulin Bhupendra [place], controlledLiver [place], [place], tel:[phone] and biliary tract [id number]. [id number] disord in , [place]. tel:[phone] , third tel:[phone] [id number] weeks [phone] gestation of [facility] Pre-existing Sep-1 Mendoza In Womens Ultrasound essential htn [facility], comp , 7 700 PO Box third Medical 1522, trimesterGestatio [facility] [place], nal diabetes in [place], , 120, [id number], insulin [place], [place] [id number] [place], tel:[phone] weeks gestation [phone] 196790 of , [place]. tel: [phone] [facility] Gestational Sep-1 Mendoza In Womens diabetes in [facility], , 7 700 PO Box insulin Medical 1522, controlledOth [facility] [place], mental disorders [place], complicating 120, [id number], , third [place], [place] [email or web address] weeks [place], tel:+[phone] gestation of [phone] [id number] , [place]. tel: [phone] [facility] Gestational Sep-1 Mendoza In Womens Ultrasound diabetes in [facility], , 7 700 PO Box insulin Medical 1522, controlledPre-exi [facility] [place], sting essential [place], htn comp 120, [id number], , third [place], [place] [id number] weeks [place], tel:+[phone] gestation of [phone] [id number] , [place]. tel: [phone] [facility] Gestational Sep-0 Mendoza In Womens diabetes in [facility], , 7 700 PO Box insulin Medical 1522, [id number] [facility] [place], weeks gestation [place], of 120, [id number], [place], tel:+ [phone] , [place]. tel: [phone] [facility] Pre-existing Sep-0 Mendoza In Womens Ultrasound essential htn [facility], comp , 7 700 PO Box third Medical 1522, trimesterGestatio [facility] [place], nal diabetes in [place], , 120, [id number], insulin [place], [place] [id number] [place], tel:[phone] weeks gestation [phone] 196790 of , [place]. tel: [phone] Leticia Huizar Sep-0 Mendoza In Womens [facility], 7 700 PO Box Medical 1522, [facility], [place], 120, , [place], [place], tel:[phone] , [place]. tel: [phone] Leticia Huizar Gestational Aug-3 Mendoza In Womens diabetes in [facility], , 7 700 PO Box insulin Medical 1522, [facility], weeks gestation [place], of 120, , [place], [place], tel:[phone] , [place]. tel: [phone] Leticia Huizar Supervision of Oct-3 Mendoza In Womens Ultrasound other high risk [facility], pregnancies, 7 700 PO Box third Medical 1522, trimesterPre-exis [facility], ting essential [place], htn comp 120, , , third [place], trimesterGestatio [place], tel:[phone] nal diabetes in , , [place]. insulin tel: [id number] [phone] weeks gestation of [facility] Supervision of Oct-2 Mendoza In Womens other high risk [facility], pregnancies, 7 700 PO Box third Medical 1522, trimesterLiver [facility], and biliary tract [place], disord in 120, , , third [place], trimesterGestatio [place], tel:[phone] nal diabetes in [id number] 196790 , , [place]. insulin tel: [id number] [phone] weeks gestation of [facility] Gestational Aug-2 Mendoza In Womens Ultrasound diabetes in [facility], , 7 700 PO Box insulin Medical 1522, controlledPre-exi [facility] [place], sting essential [place], htn comp 120, [id number], , third [place], [place] [id number] weeks [place], tel:+[phone] gestation of , [place]. tel: [phone] Leticia Huizar Gestational Aug-1 Mendoza In Womens diabetes in 7- [facility], , 7 700 PO Box insulin Medical 1522, [id number] [facility], weeks gestation [place], of 120, , [place], [place], tel:[phone] , [place]. tel: [phone] Leticia Huizar Supervision of Aug-1 Mendoza In Womens Ultrasound other high risk - [facility], pregnancies, 7 700 PO Box third Medical 1522, trimesterPre-exis [facility] [place], ting essential , [place], htn comp 120, , , third [place], trimesterGestatio [place], tel:[phone] nal diabetes in , , [place]. insulin tel: [id number] [phone] weeks gestation of [facility] Gestational Aug-1 Mendoza In Womens diabetes in 0-201 [facility], , 7 700 PO Box insulin Medical 1522, [email or web address] [facility], weeks gestation [place], of 120, , [place], [place], tel:[phone] , [place]. tel: [phone] Leticia Huizar Dillon-2 Mendoza In Womens 8- [facility], 7 700 PO Box Medical 1522, [place] [address] [place], 120, , [place], [place], tel:[phone] , [place]. tel: [phone] Leticia Huizar Dillon-2 Mendoza In Womens 7- [facility], 7 700 PO Box Medical 1522, [place] [address] [place], 120, , [place], [place], tel:[phone] , [place]. tel: [phone] Leticia Huizar Supervision of Dillon-2 Mendoza In Womens other high risk 7- [facility], pregnancies, 7 700 PO Box third Medical 1522, trimesterGestatio [facility], nal diabetes in [place], , 120, [id number], insulin [place], [place] [id number] [place], tel:[phone] weeks gestation [phone] of , [place]. tel:[phone] Leticia Huizar Pre-existing Sep-2 Mendoza In Womens Ultrasound essential htn - [facility], comp , 7 700 PO Box third Medical 1522, trimesterLiver [facility], and biliary tract [place], disord in 120, [id number], , third [place], [place] [id number] weeks [place], tel:[phone] gestation of [id number] , [place]. tel:[phone] Leticia Huizar Supervision of Sep- Mendoza In Womens other high risk 2-201 [facility], pregnancies, 7 700 PO Box second Medical 1522, trimesterPre-exis [facility], dorothyg essential [place], htn comp 120, [id number], , second [place], [place] [id number] weeks [place], tel:[phone] gestation of [id number] 196790 , [place]. tel: [phone] Leticia Huizar Supervision of Jass-2 Mendoza In Womens other high risk - [facility], pregnancies, 7 700 PO Box second Medical 1522, [facility]Pre[facility]exis [facility], ford essential [place], htn comp 120, [id number], , second [place], [place] [id number] weeks [place], tel:[phone] gestation of [id number] , [place]. tel: [phone] Leticia Huizar Supervision of July- Mendoza In Womens other high risk 1-201 [facility], pregnancies, 7 700 PO Box second Medical 1522, trimesterPre-exis [facility] lindsay essential [place], htn comp 120, [id number], , second [place], [place] [id number] weeks [place], tel:[phone] gestation of [id number] , [place]. tel: [phone] Leticia Huizar Suprvsn of preg w July-3 Mendoza In Womens Ultrasound insufficient - Fern. [facility] SANA, antenat care, 7 700 PO Box second Medical 1522, triSupervision of [facility], other high risk [place], pregnancies, 120, [id number], second [place], trimesterPre-exis [place], tel: tinhenry essential [phone] 196790 htn comp , [place]. , second tel: [id number] weeks [phone] gestation of [facility] Supervision of Apr-2 Mendoza In Womens other high risk 5-201 [facility], pregnancies, 7 700 PO Box second Medical 1522, trimesterPre-exis [place] for[place] Mariscal essential , [place], htn comp 120, [id number], , second [place], [email or web address] weeks [place], tel: gestation of [phone] 196790 , [place]. tel: [phone] Leticia Huizar Javad-2 Mendoza In Womens Follow-Up, 0-201 [facility] PA, Routine 6 700 PO Box Medical 1522, [place] [address] [place], [place], 120, , [facility] [place], tel: [phone] , [place]. tel: [phone] Leticia Huizar Dec-1 Mendoza In Womens Follow-Up, 4-201 [facility], Routine 5 700 PO Box Medical 1522, [place] [address] [place], [place], 120, , [facility] [place], tel: [phone] , [place]. tel: [phone] Leticia Huizar Morbid (severe) Nov-1 Mendoza In Womens Ultrasound obesity due to 2-201 [facility], excess calories 5 700 PO Box Medical 1522, [address] [place], [place], 120, [id number], [facility] [place], tel: [phone] , [place]. tel: [phone] Leticia Huizar Oct-2 Mendoza Referring In Womens 8-201 Fern. Provider: Health PA, 5 700 Fern Mendoza PO Box Medical [place], 700 1522, [place] [address], [facility] [place], 120, [place] 120, , Bhupendra [place], [place], [place], tel: [phone]. , [place]. tel:[phone] tel: [phone] Leticia Huizar Oct-1 Mendoza Referring In Womens 4-201 Fern. Provider: Health PA, 5 700 Fern Emndoza PO Box Medical [place], 700 1522, [place] [address], [facility] [place], 120, [place] 120, [id number], Bhupendra [place], [place], [place], tel: [phone]. , [place]. tel: tel: [phone] [facility] Jass-1 Mendoza In Womens 6-201 [facility] PA, 5 700 [facility] Medical 1522, [address], [place], 120, [id number], [facility] [place], tel: [phone] , [place]. tel: [phone] Leticia Huizar Apr-1 Mendoza In Womens 7-201 Fern. [facility] SANA, 5 700 [facility] Medical 1522, [place] [address] [place], [place], 120, [id number], [facility] [place], tel:[phone] , [place]. tel: [phone] Leticia Huizar Sep-2 Mendoza In Womens 5-201 [facility], 2 700 PO Box Medical 1522, [address] [place], [place], 120, [id number], [facility] [place], tel: [phone] , [place]. tel: [phone] Leticia Huizar Mar-1 Mendoza Referring In Womens 3-201 Fern. Provider: Health SANA, 2 700 Fern Mendoza PO Box Medical [place], 700 1522, [place] [address], [facility] [place], 120, [place] 120, [id number], Bhupendra [place], [place], [place], tel:[phone]. , [place]. tel: tel: [phone] Family History Family Member Diagnosis Age At [...] Insurance type Covered alliance party ID Authorization(s) [employer] [place] - Medicaid MC [id number] [facility] [id number] Medicaid [employer] [place] - Medicaid MC [id number] [facility] [id number] Medicaid [employer] [facility] - [place] [id number] Medicaid Social History Type Description Quantity Date [...] Evaluate & Treat Appointment Dariel Espinosa BOOKED Future Order: Radiology Order Biophysical Profile without NST Ordered ([id number]) Future Order: Radiology Order Biophysical Profile without NST Ordered ([id number]) Future Order: Radiology Order Complete OB Ultrasound > 14 Ordered Weeks ([id number]) Future Order: Radiology Order Ultrasound OB Follow-up ([id number]) Ordered Future Order: Radiology Order Ultrasound OB Follow-up ([id number]) Ordered Future Order: Radiology Order Biophysical Profile without NST Ordered ([id number]) Future Order: Radiology Order Biophysical Profile without NST Ordered ([id number]) Future Order: Radiology Order Biophysical Profile without NST Ordered ([id number]) Future Order: Lab Order Pap Smear With HPV Reflex If Ordered ASCUS ([id number]) Future Order: Radiology Order Biophysical Profile without NST Ordered ([id number]) Future Order: Radiology Order Ultrasound OB Follow-up ([id number]) Ordered Future Order: Radiology Order Biophysical Profile without NST Ordered ([id number]) Date Type Problem Goal Intervention Status Start [...]
--- OUTSIDE RECORDS SUMMARY | 2016-12-18 10:29 | External Medical Summary | Referral Summary ---
:1990 Author Organization [facility] Address [address] [place] [address] [place] [id number] Care Team Providers Name Role Phone Abdiel Pacheco Primary Care Physician Encounter VC Date(s): 08/28/14 - 08/28/14 [facility] [address] [place] [address] [place] [phone] Discharge Diagnosis: Discharge Diagnosis: Cholelithiasis Discharge Disposition: 01-Home or Self Care Attending Physician: Berry Bills MD Admitting Physician: Berry Bills MD Referring Physician: Abdiel Pacheco MD Vital Signs Most recent to oldest [Reference Range]: 1 Temperature Tympanic [36.6-38.1 degC] 36.6 degC (08/28/14 2:14 PM) Peripheral Pulse Rate [60-100 bpm] 80 bpm (08/28/14 2:14 PM) Respiratory Rate [14-20 br/min] 20 br/min (08/28/14 2:14 PM) Blood Pressure [90-140/60-90 mmHg] 116/64 mmHg (08/28/14 2:14 PM) Problem List Condition Effective Dates Status Health Status Informant Asthma(Confirmed) Active Bipolar affective disorder(Confirmed) Active Depression (emotion)(Confirmed) Active Hypertension(Confirmed) Active Morbid obesity(Confirmed) Active patient Morbid obesity(Confirmed) Active patient Heart attack(Confirmed) Active Tobacco user(Confirmed) Active patient Allergies, Adverse Reactions, Alerts Substance Reaction Severity Status Benadryl Hives Medium Active Itching HYDROcodone Adverse Reaction Active hydrocortisone Active Medications albuterol Inhaler, 0 Refill(s) Start Date: 06/06/14 Status: Orderedalbuterol 2.5 mg/3 mL (0.083%) inhalation solution 3 mL, Inhalation, q6hr (scheduled), # 25 Each, 4 Refill(s), Pharmacy: [id number], 3 mL Inhalation q6hr (scheduled) Start Date: 06/06/14 Status: Orderedranitidine 150 mg oral tablet 1 tabs, Oral, Bedtime (once a day), # 30 tabs, 0 Refill(s) Start Date: 06/25/14 Status: Ordered Results Chemistry Most recent to oldest [Reference Range]: 1 Sodium Lvl [135-144 mEq/L] 138 mEq/L (08/28/14 3:10 PM) Potassium Lvl [3.5-5.2 mEq/L] 4.1 mEq/L (08/28/14 3:10 PM) Chloride [99-111 mEq/L] 108 mEq/L (08/28/14 3:10 PM) CO2 [22-31 mEq/L] 23 mEq/L (08/28/14 3:10 PM) AGAP [3-20] 7 (08/28/14 3:10 PM) BUN [7-19 mg/dL] 12 mg/dL (08/28/14 3:10 PM) Glucose Lvl [70-99 mg/dL] 115 mg/dL *HI* (08/28/14 3:10 PM) Creatinine Lvl [0.57-1.11 mg/dL] 0.73 mg/dL (08/28/14 3:10 PM) eGFR [>60 mL/min] >60 mL/min 1 (08/28/14 3:10 PM) Calcium Lvl [8.9-10.5 mg/dL] 9.5 mg/dL (08/28/14 3:10 PM) Albumin Lvl [3.5-5.0 gm/dL] 3.8 gm/dL (08/28/14 3:10 PM) Total Protein [6.4-8.3 gm/dL] 6.3 gm/dL *LOW* (08/28/14 3:10 PM) Globulin [1.8-4.0 gm/dL] 2.5 gm/dL (08/28/14 3:10 PM) ALT [0-55 U/L] 23 U/L (08/28/14 3:10 PM) AST [5-34 U/L] 19 U/L (08/28/14 3:10 PM) Alk Phos [40-150 U/L] 58 U/L (08/28/14 3:10 PM) Bili Total [0.2-1.2 mg/dL] 0.3 mg/dL (08/28/14 3:10 PM) Lipase Lvl [8-78 U/L] 17 U/L (08/28/14 3:10 PM) Amylase Lvl [25-125 U/L] 43 U/L (08/28/14 3:10 PM) 1Result Comment: Multiply eGFR results by 1.21 for race. Immunizations Vaccine Date Refusal Reason human papillomavirus vaccine 06/23/07 human papillomavirus vaccine 12/29/06 human papillomavirus vaccine 10/25/06 influenza virus vaccine, live 01/18/08 tetanus-diphth toxoids (Td) adult/adol 11/15/03 Procedures No data available for this section Social History Social History Type Response Smoking Status Current every day smoker; Type: Cigarettes; Tobacco use per day : More than 1 pack; Started at age: 11; Ready to change: No1, 2 12-10 ciagarettes a day.215-20 cigarettes a day Assessment and Plan Extracted from: Title: Ambulatory Patient Education Author: Berry Bills MD Date: 08/28/14 Family Medicine Second Trimester of The second trimester is from week 13 through week 28, month 4 through 6. This is often the time in that you feel your best. Often times, morning sickness has lessened or quit. You may have mor e energy, and you may get hungry more often. Your unborn baby (fetus ) is growing rapidly. At the end of the sixth month, he or she is about 9 inches long and weighs about 1 pounds. You will likely fe el the baby move (quickening ) between 18 and 20 weeks of . HOME CARE Avoid all smoking, herbs, and alcohol. Avoid drugs not approved by your doctor. Only take medicine as told by your doctor. Some medicines are safe and some are not during . Exercise only as told by your doctor. Stop exercising if you start having cramps. Eat regular, healthy meals. Wear a good support bra if your breasts are tender. Do not use hot tubs, steam rooms, or saunas. Wear your seat belt when driving. Avoid raw meat, uncooked cheese, and liter boxes and soil used by cats. Take your vitamins. Try taking medicine that helps you poop (stool softener ) as needed, and if your doctor approves. Eat more fiber by eating fresh fruit, vegetables, and whole grains. Drink enough fluids to keep your pee (urine ) clear or pale yellow. Take warm water baths (sitz baths ) to soothe pain or discomfort caused by hemorrhoids. Use hemorrhoid cream if your doctor approves. If you have puffy, bulging veins (varicose veins ), wear support hose. Raise (elevate ) your feet for 15 minutes, 34 times a day. Limit salt in your diet. Avoid heavy lifting, wear low heals, and sit up straight. Rest with your legs raised if you have leg cramps or low back pain. Visit your dentist if you have not gone during your . Use a soft toothbrush to brush your teeth. Be gentle when you floss. You can have sex (intercourse ) unless your doctor tells you not to. Go to your doctor visits. GET HELP IF: You feel dizzy. You have mild cramps or pressure in your lower belly (abdomen ). You have a nagging pain in your belly area. You continue to feel sick to your stomach (nauseous ), throw up (vomit ), or have watery poop (diarrhea ). You have bad smelling fluid coming from your vagina. You have pain with peeing (urination ). GET HELP RIGHT AWAY IF: You have a fever. You are leaking fluid from your vagina. You have spotting or bleeding from your vagina. You have severe belly cramping or pain. You lose or gain weight rapidly. You have trouble catching your breath and have chest pain. You notice sudden or extreme puffiness (swelling ) of your face, hands, ankles, feet, or legs. You have not felt the baby move in over an hour. You have severe headaches that do not go away with medicine. You have vision changes. Document Released: 06/02/2010 Document Revised: 07/03/2013 Document Reviewed: 05/09/2013 [facility] Patient Information 2014 [facility]. No follow up information was provided. Extracted from: Title: Office Visit Note Author: Berry Bills MD Date: 08/28/14 Assessment/Plan Cholelithiasis Ordered: Office Visit Level 4 Est 07876 Ordered: Office Visit Level 4 Est 29094 Plan: CMP, Amylase and Lipase. Nonoperative intervention at this time. Continued close observation . I informed the patient that during her visit I was somewhat undecided in regards to whether or not to proceed with laparoscopic cholecystectomy but would discuss this case with her [employer] phys ician and obtain some basic laboratory consisting of a CMP amylase and lipase levels. Her lab work has came back as normal. Although the patient stated that she was in severe pain during the inter view process she was not found to be significantly tender upon palpation nor clinically did she appear to be in acute distress. After discussing this case with her [employer]UD[employer] PROF[employer] physician and giving some add itional contemplation in regards to the risk versus benefits of proceeding with laparoscopic cholecystectomy in this patient during her second trimester I have decided not to proceed with laparoscopic c holecystectomy at this time. If the patient would develop severe pain to the point that she presented to the emergency room and was found to be quite tender upon examination and perhaps had some type of laboratory or sonographic evidence for symptomatic cholelithiasis then at that point in time we'll proceed with surgical intervention/laparoscopic cholecystectomy. I will have my staff contact the patient with my formal recommendations of not proceeding with surgery at this time and will continue to follow her closely from a clinical standpoint.
--- OUTSIDE RECORDS SUMMARY | 2016-12-18 10:29 | External Medical Summary | Continuity of Care Document ---
:1990 Author Organization [facility] Address [address] [place], [place] [id number] Phone Care Team Providers Name Role Phone Abdiel Pacheco MD Unavailable Unavailable Allergies, Adverse Reactions, Alerts Substance Reaction Severity Status DIPHENHYDRAMINE HCL Unknown Active betamethasone Unknown Active CHLORPHENIRAMINE MALEATE Unknown Active hydrocortisone Unknown Active Medications Medication Instructions Dosage Effective Dates Status Comments (start - stop) Lexapro 10 mg take 1/2 tablet by - Active tablet oral route every day for 2 weeks, [...] per insulin subcutaneous pen protocol Pen Needle - Active gauge x 1/4" ProAir HFA 90 inhale 2 puff by - Active mcg/actuation inhalation route aerosol inhaler every 4 - 6 hours as needed Prilosec OTC 20 mg take 1 Capsule by Not Available - Active tablet,delayed Oral route every release day Plus take 1 tablet by Not Available - No Longer (calcium oral route every Active carbonate) 27 mg day iron-1 mg tablet Problems Condition Effective Dates (start - stop) [...] pregnancies, 7 700 Fern Mendoza [address] [facility] Medical [place], [phone], [facility] Dr, [facility] Center Dr [place], , 120, [place] 120, [id number], insulin Bhupendra [place], [place] [email or web address] [place], [place], tel: weeks gestation [phone]. of pregnancyLiver , [place]. tel: and biliary tract tel: [phone] disord in [phone] , third trimester Associates [facility]endra Pre-existing Sep-1 Mendoza In Womens Ultrasound essential htn [facility], comp , 7 700 [address] third Medical 1522, trimesterGestatio [facility] [place], nal diabetes in [place], , 120, [id number], insulin [place], [place] [email or web address] [place], tel:2 weeks gestation [phone] of , [place]. tel: [phone] Associates [facility]upendra Gestational Sep-1 Mendoza In Womens diabetes in [facility], , 7 700 PO Box insulin Medical 1522, [email or web address] Center [place], weeks gestation [place], of pregnancyOth 120, , mental disorders [place], [place] complicating [place], tel: , third [phone] [id number] trimester , [place]. tel: [phone] Associates [facility]endra Gestational Sep-1 Mendoza In Womens Ultrasound diabetes in [facility], , 7 700 PO Box insulin Medical 1522, controlledPre-exi [facility] [place], sting essential [place], htn comp 120, , , third [place], [place] weeks [place], tel: gestation of [phone] [id number] , [place]. tel: [phone] Associates [facility]upendra Gestational Sep-0 Mendoza In Womens diabetes in [facility], , 7 700 PO Box insulin Medical 1522, [email or web address] [place], weeks gestation [place], of 120, [id number], [place], [place], tel:[phone] , [place]. tel: [phone] Associates Bhupendra Pre-existing Sep-0 Mendoza In Womens Ultrasound essential htn [facility], comp , 7 700 PO Box third Medical 1522, trimesterGestatio [facility] [place], nal diabetes in Dr, [place], , 120, [id number], insulin [place], [place] [email or web address] [place], tel:+ weeks gestation [phone] [address] of , [place]. tel: [phone] Leticia [place] Sep-0 Mendoza In Womens [facility], 7 700 PO Box Medical 1522, [facility], [place], 120, [id number], [place], [place], tel:[phone] , [place]. tel: [phone] Leticia [place] Gestational Aug-3 Mendoza In Womens diabetes in [facility], , 7 700 PO Box insulin Medical 1522, [email or web address] [facility] [place], weeks gestation [place], of 120, [id number], [place], [place], tel:[phone] , [place]. tel: [phone] Leticia [place] Supervision of Aug-3 Mendoza In Womens Ultrasound other high risk [facility], pregnancies, 7 700 PO Box third Medical 1522, trimesterGestatio [facility] [place], [facility] diabetes in [place], , 120, [id number], insulin [place], [place] controlledPre-exi [place], tel: sting essential [phone] htn comp , [place]. , third tel: [email or web address] weeks [phone] gestation of Associates Bhupendra Supervision of Aug-2 Mendoza In Womens other high risk [facility], pregnancies, 7 700 PO Box third Medical 1522, trimesterGestatio Center [facility] diabetes in [place], , 120, [id number], insulin [place], [place] controlledLiver [place], tel:+ and biliary tract [phone] disord in , [place]. , third tel: [email or web address] weeks [phone] gestation of Associates Bhupendra Pre-existing Aug-2 Mendoza In Womens Ultrasound essential htn [facility], comp , 7 700 PO Box third [email or web address] Medical 1522, [facility], of [place], pregnancyGestatio 120, [id number], nal diabetes in [place], [place] , [place], tel:+ insulin [phone] controlled , [place]. tel: [phone] Leticia [place] Gestational Aug-1 Mendoza In Womens diabetes in 7 [facility], , 7 700 PO Box insulin Medical 1522, [email or web address] [facility] [place], weeks gestation [place], of 120, , [place], [place], tel:[phone] , [place]. tel: [phone] Leticia [place] Supervision of Aug-1 Mendoza In Womens Ultrasound other high risk 7- [facility], pregnancies, 7 700 PO Box third Medical 1522, trimesterGestatio [facility] [place], nal diabetes in [place], , 120, , insulin [place], controlledPre-exi [place], tel:+ sting essential [phone] htn comp , [place]. , third tel: weeks [phone] gestation of Associates [facility]endra Gestational Aug-1 Mendoza In Womens diabetes in 0-201 [facility], , 7 700 PO Box insulin Medical 1522, [email or web address] Center [place], weeks gestation [place], of 120, , [facility] [place], tel:[phone] , [place]. tel: [phone] Leticia [place] Dillon-2 Mendoza In Womens 8-201 [facility], 7 700 PO Box Medical [address], [address], Ste [place], 120, , [place], [place], tel:[phone] , [place]. tel: [phone] Leticia [place] Dillon-2 Mendoza In Womens 7-201 [facility], 7 700 PO Box Medical [address], [address] [place], 120, , [place], [place], tel:[phone] , [place]. tel: [phone] Leticia [place] Supervision of Dillon-2 Mendoza In Womens other high risk 7- [facility], pregnancies, 7 700 PO Box third Medical 1522, trimesterGestatio [facility] [place], nal diabetes in [place], , 120, , insulin [place], [place] [email or web address] [place], tel:[phone] weeks gestation [phone] of , [place]. tel:[phone] Leticia [place] Pre-existing Sep-2 Mendoza In Womens Ultrasound essential htn - [facility], comp , 7 700 PO Box third Medical 1522, trimesterLiver [facility] [place], and biliary tract [place], disord in 120, [id number], , third [place], [place] [email or web address] weeks [place], tel:[phone] gestation of [phone] , [place]. tel: [phone] Leticia [place] Supervision of Sep- Mendoza In Womens other high risk 2-201 [facility], pregnancies, 7 700 PO Box second Medical 1522, trimesterPre-exis [facility] [place] [address], Ste [place], htn comp 120, [id number], , second [place], [place] [id number] weeks [place], tel:[phone] gestation of [phone] [phone] , [place]. tel: [phone] Leticia [place] Supervision of Jass-2 Mendoza In Womens other high risk - [facility], pregnancies, 7 700 PO Box second Medical 1522, trimesterPre-exis [facility] [place] lindsay essential [place], htn comp 120, [id number], , second [place], [place] [email or web address] weeks [place], tel:[phone] gestation of [phone] [id number] , [place]. tel:[phone] Leticia [place] Supervision of July- Mendoza In Womens other high risk 1-201 [facility], pregnancies, 7 700 PO Box second Medical 1522, trimesterPre-exis Center [address], Ste [place], htn comp 120, [id number], , second [place], [place] [email or web address] weeks [place], tel:[phone] gestation of [phone] [id number] , [place]. tel:[phone] Leticia Hu[place] Suprvsn of preg w July-3 Mendoza In Womens Ultrasound insufficient 1-201 [facility], antenat care, 7 700 PO Box second Medical 1522, triSupervision of [facility], other high risk , [place], pregnancies, 120, [id number], second [place], trimesterPre-exis [place], tel:+ ting essential [phone] htn comp , [place]. , second tel: [email or web address] weeks [phone] gestation of Associates Bhupendra Supervision of Apr-2 Mendoza In Womens other high risk 5-201 [facility], pregnancies, 7 700 PO Box second Medical 1522, trimesterPre-exis [facility], ting essential , [place], htn comp 120, [id number], , second [place], [email or web address] weeks [place], tel:+ gestation of [phone] , [place]. tel: [phone] Leticia [place] Javad-2 Mendoza In Womens Follow-Up, 0-201 Fern. [facility], Routine 6 700 PO Alsen Medical 15[address], [address] [place], [place], 120, [id number], [place], [place], tel:+ [phone] , [place]. tel: [phone] Leticia [place] Dec-1 Mendoza In Womens Follow-Up, 4-201 [facility], Routine 5 700 [facility] Medical 1522, [address] [place], [place], 120, [id number], [place], [place], tel:[phone] , [place]. tel: [phone] Leticia [place] Morbid (severe) Nov-1 Mendoza In Womens Ultrasound obesity due to 2-201 [facility], excess calories 5 700 PO Box Medical 15[address], [address] [place], [place], 120, [id number], [place], [place], tel:[phone] , [place]. tel: [phone] Leticia [place] Oct-2 Mendoza Referring In Womens 8-201 Fern. Provider: Health SANA, 5 700 Fern Mendoza PO Alsen Medical K, 700 1522, [address], [facility] [place], 120, [place] 120, , Bhupendra [place], [place], [place], tel:[phone]. , [place]. tel: tel: [phone] Leticia [place] Oct-1 Mendoza Referring In Womens 4-201 Fern. Provider: Health PA, 5 700 Fern Mendoza PO Box Medical K, 700 1522, [address], [facility] [place], 120, [place] 120, , Bhupendra [place], [place], [place], tel:[phone]. , [place]. tel: tel: [phone] Associates Bhupendra Jass-1 Mendoza In Womens 6-201 [facility], 5 700 PO Box Medical [address], [address] [place], [facility] [place], 120, , [place], [place], tel:[phone] , [place]. tel: [phone] Leticia [place] Apr-1 Mendoza In Womens 7-201 [facility], 5 700 PO Alsen Medical 1522, [address] [place], [facility] [place], 120, , [facility] [place], tel:[phone] , [place]. tel: [phone] Leticia [place] Sep-2 Mendoza In Womens 5-201 [facility]. [facility], 2 700 [facility] Medical 1522, [address] [place], [facility] [place], 120, , [facility] [place], tel:[phone] , [place]. tel: [phone] Leticia [place] Mar-1 Mendoza Referring In Womens 3-201 Fern. Provider: Health PA, 2 700 Fern Mendoza PO Box Medical K, 700 1522, [address], [facility] [place], 120, [place] 120, [id number], Bhupendra [place], [place], [place], tel:[phone]. , [place]. tel: tel: [phone] Family History Family Member Diagnosis Age At [...] [employer] [place] Medicaid [place] [id number] [facility] [id number] Medicaid [place] [place] - Medicaid [place] [id number] [facility] [id number] Medicaid [facility] - [place] [id number] Medicaid Social History Type Description Quantity Date Captured Alcohol Use Details No Caffeine Use Details Unknown Tobacco Use Status Smoking Status Current every day smoker Vital Signs Date / Height Weight BMI Pulse Blood Temperature Respiratory Body Head BMI Time: Rate Pressure Rate Surface Circumference percentile Area 287.50 47.4 135/75 -2017 lbs 0 mm[Hg] 9:28 kg/m AM eter (2) 46.0 -2017 1 9:25 kg/m AM eter (2) Chief Complaint And [...] Radiology Order Biophysical Profile without NST Ordered ([id number]) Future Order: Radiology Order Complete OB Ultrasound > 14 Ordered Weeks ([id number]) Future Order: Radiology Order Ultrasound OB Follow-up ([id number]) Ordered Future Order: Radiology Order Biophysical Profile without NST Ordered ([id number]) Future Order: Radiology Order Biophysical Profile without NST Ordered ([id number]) Future Order: Radiology Order Ultrasound OB Follow-up ([id number]) Ordered Future Order: Radiology Order Biophysical Profile without NST Ordered ([id number]) Future Order: Radiology Order Biophysical Profile without NST Ordered ([id number]) Future Order: Radiology Order Ultrasound OB Follow-up ([id number]) Ordered Future Order: Radiology Order Biophysical Profile without NST Ordered ([id number]) Future Order: Radiology Order Biophysical Profile without NST Ordered ([id number]) Future Order: Lab Order Pap Smear With [...]
--- OUTSIDE RECORDS SUMMARY | 2016-12-18 10:29 | External Medical Summary | Referral Summary ---
:1990 Author Organization [facility] Address [address] [place] [address] Care Team Providers Name Role Phone Abdiel Pacheco Primary Care Physician Encounter VC Date(s): 12/27/15 - 12/27/15 [facility] [address] [place] [address] [place] Discharge Diagnosis: Dental caries Discharge Disposition: 01-Home or Self Care Attending Physician: Michele Domínguez MD Admitting Physician: Michele Domínguez MD Vital Signs Most recent to oldest [Reference Range]: 1 Temperature Oral [35.8-37.3 degC] 36.6 degC (12/27/15 1:23 PM) Peripheral Pulse Rate [60-100 bpm] 98 bpm (12/27/15 1:23 PM) Respiratory Rate [14-20 br/min] 18 br/min (12/27/15 1:23 PM) Blood Pressure [90-140/60-90 mmHg] 143/97 mmHg *HI* (12/27/15 1:23 PM) SpO2 97 % (12/27/15 1:23 PM) Problem List Condition Effective Dates Status Health Status Informant Asthma(Confirmed) Active Bipolar affective disorder(Confirmed) Active Depression (emotion)(Confirmed) Active Hypertension(Confirmed) Active Morbid obesity(Confirmed) Active patient Morbid obesity(Confirmed) Active patient Heart attack(Confirmed) Active Tobacco user(Confirmed) Active patient Allergies, Adverse Reactions, Alerts Substance Reaction Severity Status Benadryl Hives Medium Active Itching... hydrocortisone Active Medications albuterol Inhaler, 0 Refill(s) Start Date: 06/06/14 Status: Orderedalbuterol 2.5 mg/3 mL (0.083%) inhalation solution 3 mL, Inhalation, q6hr (scheduled), # 25 Each, 4 Refill(s), Pharmacy: [id number], 3 mL Inhalation q6hr (scheduled) Start Date: 06/06/14 Status: Orderedamoxicillin 500 mg oral tablet 500 mg 1 tabs, Oral, TID, X 10 days, # 30 tabs, 0 Refill(s) Start Date: 12/27/15 Stop Date: 01/06/16 Status: Orderedibuprofen 800 mg oral tablet 800 mg 1 tabs, Oral, q8hr, as needed for pain, X 7 days, # 21 tabs, 0 Refill(s) Start Date: 12/27/15 Stop Date: 01/03/16 Status: OrderedPercocet 5/325 oral tablet 1 tabs, Oral, q4hr, as needed for pain, X 3 days, # 12 tabs, 0 Refill(s) Start Date: 12/27/15 Stop Date: 12/30/15 Status: Orderedranitidine 150 mg oral tablet 1 tabs, Oral, Bedtime (once a day), # 30 tabs, 0 Refill(s) Start Date: 06/25/14 Status: Ordered Results No data available for this section Immunizations Vaccine Date Refusal Reason human papillomavirus [...] day.215-20 cigarettes a day Assessment and Plan No data available for this section
--- OUTSIDE RECORDS SUMMARY | 2016-12-18 10:29 | External Medical Summary | Continuity of Care Document ---
:1990 Author Organization [email or web address] Address [address] [place], [place] [id number] Phone Care Team Providers Name Role Phone [...] needed ONE DAILY take 1 tablet by - Active (unknown strength) oral route every day Flovent Diskus 50 inhale 1 puff by - No Longer mcg/actuation powder inhalation route 2 Active for inhalation times every day Problems Condition Effective Dates (start [...] third trimester 28 weeks gestation of - Follow-Up, Routine Pelvic Pain - Active Active Procedures Procedure Date OB Visit No Charge Results Test Name Date and Time Measure Units Reference Range Abnormal Flag Comments Panel Description: Glucose [Mass/volume] in Serum or Plasma --1 hour post 50 g glucose PO GLUCOSE, 143 mg/dL <140 H One hour value of > GESTATIONAL SCREEN 15:07:00 wq=331 mg/dL indicatesthe (50G)-140 CUTOFF need for a diagnostic 75 g dose 2-hour or100 g dose 3-hour oral glucose tolerance test;patient fasting is required.Test performed at [email or web address] [id number] [place] [id number]: ASHLY MAIER DO,MPH Panel Description: HEMOGLOBIN + HEMATOCRIT HEMOGLOBIN 15:07:00 13.0 g/dL 11.7-15.5 N HEMATOCRIT 15:07:00 38.5 % 35.0-45.0 N Test performed at [email or web address] [id number] [place] [id number]: ASHLY MAIER DO,MPH Advance Directives Directive Yes / No Effective Date File Name Unknown Encounters Encounter Practice Location Reason(s) Diagnoses Date Provider Care Team Description For Visit Members Leticia [place] Dillon-2 [facility] In Womens 8- [facility], 7 700 [address], [address] [place], 120, [id number], [place], tel:[phone] , [place]. tel: [phone] Leticia [place] Dillon-2 Mendoza In Womens - [facility], 7 700 [address], [address] [place], [place], 120, , [facility] [place], tel:[phone] , [place]. tel: [phone] Leticia [place] Supervision of Dillon-2 Mendo[facility] In Womens other high risk [facility], pregnancies, 7 700 [address] third Medical [address]22, trimesterGestatio [facility], nal diabetes in [place], , 120, , insulin [place], [email or web address] [place], tel:[phone] weeks gestation [phone] of , [place]. tel: [phone] Leticia [place] Pre-existing Dillon-2 Mendo[facility] In Womens Ultrasound essential htn - [facility], comp , 7 700 PO Box third Medical 1522, trimesterLiver [facility], and biliary tract [place], disord in 120, [id number], , third [place], [id number] weeks [place], tel:[phone] gestation of [phone] [id number] , [place]. tel: [phone] Leticia [place] Supervision of Sep-1 [facility] In Womens other high risk - [facility], pregnancies, 7 700 PO Box second Medical 1522, trimesterPre-exis [facility], ting essential [place], htn comp 120, [id number], , second [place], [id number] weeks [place], tel:[phone] gestation of [phone] [id number] , [place]. tel: [phone] Leticia [place] Supervision of Jass-2 Mendoza In Womens other high risk 7-201 [facility], pregnancies, 7 700 PO Box second Medical 1522, [facility]Pre-exis [facility] [address], [place], htn comp 120, [id number], , second [place], [place] [email or web address] weeks [place], tel:[phone] gestation of [phone] , [place]. tel: [phone] Leticia [place] Supervision of July-3 [facility] In Womens other high risk 1-201 [facility], pregnancies, 7 700 PO Box second Medical [address]22, [facility]exis [facility] [address], [place], htn comp 120, [id number], , second [place], [place] [id number] weeks [place], tel:[phone] gestation of [phone] [phone] , [place]. tel: [phone] Leticia [place] Suprvsn of preg w July- [facility] In Womens Ultrasound insufficient 1-201 [facility], antenat care, 7 700 PO Box second Medical [address]22, triSupervision of [facility], other high risk [place], pregnancies, 120, [id number], second [place], [place] trimesterPre-exis [place], tel:[phone] dorothyg essential [phone] htn comp , [place]. , second tel:+[phone] [id number] weeks [phone] gestation of Associates [facility] Supervision of Apr-2 [facility] In Womens other high risk 5-201 [facility], pregnancies, 7 700 PO Box second Medical 1522, [facility]Pre-exis [facility] [address], [place], htn comp 120, [id number], , second [place], [place] [id number] weeks [place], tel:[phone] gestation of [phone] [id number] , [place]. tel: [phone] Leticia [place] Javad-2 [facility] In Womens Follow-Up, 0-201 [facility], Routine 6 700 [address], [facility], [place], 120, [id number], [place], tel:[phone] , [place]. tel: [phone] Leticia [place] Dec-1 [facility] In Womens Follow-Up, 4-201 [facility], Routine 5 700 [facility] Medical [address], [address] [place], [facility] [place], 120, [id number], [place], [place], tel: [phone] , [place]. tel: [phone] Leticia [place] Morbid (severe) Nov-1 [facility] In Womens Ultrasound obesity due to 2-201 [facility], excess calories 5 700 [facility] Medical [address], [address] [place], [facility] [place], 120, [id number], [place], tel: [phone] , [place]. tel: [phone] Leticia [place] Dec-2 Mendoza Referring In Womens 8-201 Fern. Provider: Health PA, 5 700 Fern Mendoza [facility] Medical , 700 [address], [address], [facility] [place], 120, [place] 120, , [place], [place], [place], tel:[phone]. , [place]. tel: tel: [phone] Leticia [place] Dec-1 Mendoza Referring In Womens 4-201 Fern. Provider: Health PA, 5 700 Fern Mendoza [facility] Medical K, 700 [address], [address], [facility] [place], 120, [place] 120, , [place], [place], [place], tel:[phone]. , [place]. tel: tel: [phone] Leticia [place] Jass-1 Mendoza In Womens 6-201 [facility], 5 700 [facility] Medical [address], [address], [place], 120, [id number], [place], [place], tel:[phone] , [place]. tel: [phone] Leticia [place] Apr-1 Mendoza In Womens 7-201 [facility], 5 700 [facility] Medical [address], [address], [facility] [place], 120, [id number], [facility] [place], tel: [phone] , [place]. tel: [phone] Leticia [place] Apr-0 Mendoza In Womens 1-201 [facility], 5 700 [address], [address] [place], [place], 120, [id number], [facility] [place], tel: [phone] , [place]. tel: [phone] Leticia [place] Sep-2 Mendoza In Womens 5-201 [facility], 2 700 [address], [address] [place], [facility] [place], 120, [id number], [facility] [place], tel: [phone] , [place]. tel: [phone] Leticia [place] Mar-1 Mendoza Referring In Womens 3-201 Fern. Provider: Health PA, 2 700 Fern Mendoza PO [place] Medical K, 700 [address], [address], [facility] [place], 120, [place] 120, [id number], [place], [place], tel: [phone]. , [place]. tel: tel: [phone] Family History Family Member Diagnosis Age At [...] name Insurance type Covered republican ID Authorization(s) [facility] - Medicaid [id number] [facility] - [id number] Medicaid [facility] - [id number] Medicaid [employer] [facility] - [id number] Medicaid Social History Type Description Quantity Date Captured Alcohol Use Details No Caffeine Use Details Unknown Tobacco Use Status Smoking Status Current every day smoker Vital Signs Date / Height Weight BMI Pulse Blood Temperature Respiratory Body Head BMI Time: Rate Pressure Rate Surface Circumference percentile Area 275.00 45.3 148/ lbs 4 mm[Hg] 2:42 kg/m PM eter (2) 275.00 45.3 148 lbs 4 mm[Hg] 2:46 kg/m PM eter (2) Chief Complaint And [...] Radiology Order Biophysical Profile without NST Ordered ([id number]) Future Order: Radiology Order Complete OB Ultrasound > 14 Ordered Weeks ([id number]) Future Order: Radiology Order Ultrasound OB Follow-up ([id number]) Ordered Future Order: Lab Order Pap Smear [...]
--- OUTSIDE RECORDS SUMMARY | 2016-12-18 10:29 | External Medical Summary | Continuity of Care Document ---
:1990 Author Organization [facility] Address [address] [place], [place] [id number] Phone Care Team Providers Name Role Phone Abdiel Pacheco MD Unavailable Unavailable Allergies, Adverse Reactions, Alerts Substance Reaction Severity Status DIPHENHYDRAMINE HCL Unknown Active betamethasone Unknown Active CHLORPHENIRAMINE MALEATE Unknown Active hydrocortisone Unknown Active Medications Medication Instructions Dosage Effective Dates Status Comments (start - stop) Macrobid 100 mg take 1 capsule PO - Active capsule BID Flovent HFA 110 inhale 1- 2 puff [...] Active (unknown strength) oral route every day Novolog Mix 70-30 8 ulnits am and hs - No Longer 100 unit/mL Active subcutaneous solution Novolog Flexpen 100 70/30 inject by - No Longer unit/mL subcutaneous subcutaneous route 8 Active units AM and HS Problems Condition Effective Dates (start - stop) [...] Team Description For Visit Members Leticia [place] [facility] In Womens 7-201 [facility], 7 700 PO [place] [facility] [address], [address], [place], 120, , [place], [place], tel:[phone] , [place]. tel: [phone] Leticia [place] Supervision of Aug-1 [facility] In Womens Ultrasound other high risk 7- [facility], pregnancies, 7 700 [address] third Medical 1522, trimesterPre-exis [facility], ting essential [place], htn comp 120, [id number], , third [place], trimesterGestatio [place], tel:[phone] nal diabetes in , , [place]. insulin tel: [phone] weeks gestation of [facility] Gestational Aug-1 [facility] In Womens diabetes in 0-201 [facility], , 7 700 PO Box insulin Medical 1522, [id number] [facility], weeks gestation [place], of 120, , [place], tel:[phone] , [place]. tel: [phone] Leticia [place] Dillon-2 Mendoza In Womens 8-201 [facility], 7 700 [address], [facility], [place], 120, , [facility] [place], tel:[phone] , [place]. tel: [phone] Leticia [place] Dillon-2 Mendoza In Womens 7-201 [facility], 7 700 [address], [facility], [place], 120, , [place], [place], tel:[phone] , [place]. tel: [phone] Leticia [place] Supervision of Dillon-2 Mendoza In Womens other high risk 7-201 [facility], pregnancies, 7 700 PO Box third Medical 1522, trimesterGestatio [facility] [place], nal diabetes in [place], , 120, [id number], insulin [place], [id number] [place], tel:+[phone] weeks gestation of , [place]. tel: [phone] Leticia [place] Pre-existing Dillon-2 Mendoza In Womens Ultrasound essential htn 7- [facility], comp , 7 700 PO Box third Medical 1522, trimesterLiver [facility], and biliary tract [place], disord in 120, , , third [place], [place] [id number] weeks [place], tel:[phone] gestation of [id number] , [place]. tel:[phone] Leticia [place] Supervision of Mendoza In Womens other high risk 2-201 [facility], pregnancies, 7 700 PO Box second Medical 1522, trimesterPre-exis [facility], ting essential , [place], htn comp 120, [id number], , second [place], [place] [id number] weeks [place], tel:[phone] gestation of [id number] , [place]. tel: [phone] Leticia [place] Supervision of Mendoza In Womens other high risk - [facility], pregnancies, 7 700 PO Box second Medical 1522, trimesterPre-exis [facility], dorothyg essential [place], htn comp 120, , , second [place], [place] [id number] weeks [place], tel:+[phone] gestation of [id number] , [place]. tel: [phone] Leticia [place] Supervision of Mendoza In Womens other high risk 1-201 [facility], pregnancies, 7 700 PO Box second Medical 1522, [facility]exis [facility], dorothyg essential [place], htn comp 120, [id number], , second [place], [place] [id number] weeks [place], tel:[phone] gestation of [id number] , [place]. tel: [phone] Leticia [place] Suprvsn of preg w July- [facility] In Womens Ultrasound insufficient - [facility], antenat care, 7 700 PO Box second Medical 1522, triSupervision of [facility], other high risk [place], pregnancies, 120, [id number], second [place], [place] trimesterPre-exis [place], tel:[phone] ting essential [phone] htn comp , [place]. , second tel:+04-21 [id number] weeks [phone] gestation of [facility] Supervision of Apr-2 Mendoza In Womens other high risk 5-201 [facility], pregnancies, 7 700 PO Box second Medical 1522, trimesterPre-exis [address], [facility] [place], htn comp 120, [id number], , second [facility] [id number] weeks [place], tel: gestation of , [place]. tel: [phone] Leticia [place] Javad-2 Mendoza In Womens Follow-Up, 0-201 [facility], Routine 6 700 [address] Medical [address], [address] [place], [facility] [place], 120, [id number], [facility] [place], tel: [phone] , [place]. tel: [phone] Leticia [place] Dec-1 Mendoza In Womens Follow-Up, 4-201 [facility], Routine 5 700 PO [place] Medical [address], [address] [place], [facility] [place], 120, [id number], [facility] [place], tel:[phone] , [place]. tel: [phone] Leticia [place] Morbid (severe) Nov-1 [facility] In Womens Ultrasound obesity due to 2-201 [facility], excess calories 5 700 [address], [address] [place], [place], 120, [id number], [facility] [place], tel:[phone] , [place]. tel: [phone] Leticia [place] Oct-2 Mendoza Referring In Womens 8-201 Fern. Provider: Health PA, 5 700 Fern Mendoza PO Box Medical K, 700 [address], [address], [facility] [place], 120, [place] 120, [id number], [place], [place], [place], tel:+ [phone]. , [place]. tel: tel: [phone] Leticia [place] Oct-1 Mendoza Referring In Womens 4-201 Fern. Provider: [facility] PA, 5 700 Fern Mendoza PO Box Medical K, [address], [address], [facility] [place], 120, [place] 120, [id number], [place], [place], [place], tel: [phone]. , [place]. tel: tel: [phone] [facility] Jass-1 Mendoza In Womens 6-201 [facility], 5 700 [facility] Medical [address], [address] [place], [facility] [place], 120, [id number], [place], [place], tel:[phone] , [place]. tel: [phone] [facility] Apr-1 Mendoza In Womens 7-201 [facility], 5 700 [facility] Medical [address], [address] [place], [facility] [place], 120, [id number], [facility] [place], tel:[phone] , [place]. tel: [phone] Leticia [place] Apr-0 Mendoza In Womens 1-201 [facility], 5 700 [facility] Medical [address], [address] [place], [facility] [place], 120, [id number], [facility] [place], tel:[phone] , [place]. tel: [phone] Leticia [place] Sep-2 Mendoza In Womens 5-201 [facility], 2 700 [facility] Medical [address], [address] [place], [facility] [place], 120, [id number], [facility] [place], tel:[phone] , [place]. tel: [phone] Leticia [place] Mar-1 Mendoza Referring In Womens 3-201 Fern. Provider: [facility] PA, 2 700 Fern Mendoza PO [place] [facility] K, [address], [address], [facility] [place], 120, [place] 120, [id number], [place], [place], [place], tel:[phone]. , [place]. tel: tel: [phone] Family History Family Member Diagnosis Age At [...] name Insurance type Covered democrat ID Authorization(s) [facility] - Medicaid MC [id number] [facility] - [id number] Medicaid [employer] [facility] - [id number] Medicaid [employer] [facility] - [id number] Medicaid Social History Type Description Quantity Date Captured Alcohol Use Details No Caffeine Use Details Unknown Tobacco Use Status Smoking Status Current every day smoker Vital Signs Date / Height Weight BMI Pulse Blood Temperature Respiratory Body Head BMI Time: Rate Pressure Rate Surface Circumference percentile Area 174.90 28.8 146/88 2017 lbs 4 mm[Hg] 11:43 kg/m AM eter (2) Chief Complaint And [...] Radiology Order Biophysical Profile without NST Ordered ([id number]) Future Order: Radiology Order Complete OB Ultrasound > 14 Ordered Weeks ([id number]) Future Order: Radiology Order Ultrasound OB Follow-up ([id number]) Ordered Future Order: Radiology Order Biophysical Profile without NST Ordered ([id number]) Future Order: Radiology Order Ultrasound OB Follow-up ([id number]) Ordered Future Order: Lab Order Pap Smear With HPV Reflex If Ordered ASCUS ([id number]) Date Type Problem Goal Intervention Status Start Date Unknown. History Of Present Illness Encounter Date Complaint History Of Present Illness This patient has no known history of present illness Functional Status Encounter Date Functional Assessment Cognitive Assessment Unknown Medications Administered Medication Instructions Dosage Effective Dates Status Comments (start - stop) Novolog Mix 70-30 8 ulnits am and hs - No Longer 100 unit/mL Active subcutaneous solution Novolog Flexpen 100 70/30 inject by - No Longer unit/mL subcutaneous subcutaneous route 8 Active units AM and HS Instructions Date Instruction Additional Information Unknown
--- OUTSIDE RECORDS SUMMARY | 2016-12-18 10:30 | External Medical Summary | Continuity of Care Document ---
:1990 Author Organization [facility] LIVE Care Team Providers Name Role Phone ANDREW GONZALEZ Unavailable Unavailable Insurance Providers Payer Name Policy Number Subscriber Name Relationship [facility] State Plan [id number] Dariel Osullivan 17 Self Advance Directives Directive Response Recorded Date/Time Advanced Directives Type None 06/18/14 8:10am Problems Medical Problems Problem Onset Date Status Foot sprain Unknown Active Cholelithiases Unknown Active Unknown Active Biliary colic Unknown Active Cholelithiases Unknown Active Medications Medication Dose Route Sig Days/Qty Instructions Order Discontinued Status Date Date Propranolol HCl 1 Tab PO FOUR 06/18/ Active TIMES 15 DAILY PRN ANXIETY Quetiapine 1 Tab PO DAILY 06/18/ Active Fumarate 15 Albuterol 2.5 AEROSOL FOUR 06/18/ Active Sulfate Mg TIMES 15 DAILY PRN SHORTNE SS OF AIR Amox 1 Tab PO TWICE A started 06/06/1406/18/ Active Tr/Potassium DAY for a 10days 15 Clavulanate supply. Pt states she has 1 or Tetrahydrozolin 1 BOTH 06/18/ Active e HCl Drop EYES NEEDED 15 PRN DRY EYES Hydrocodone/Ruben 1-2 PO EVERY 20 Qty 06/18/ Active taminophen Tab 4-6 15 HOURS PRN PAIN Ranitidine HCl 150 PO TWICE A 10 Days 06/18/ Active Mg DAY For 15 gastrit is Vits 1 Tab PO DAILY 30 Days 06/18/ Active W-Ca,Fe,FA(< For 15 1Mg) pregnac y Ondansetron 4 Mg PO EVERY 20 Qty Oral 03/30/ Active 4-6 Disintegrating 15 HOURS Tablet For NAUSEA Social History Social History Problem Response Recorded Date/Time Hx Substance Use No 06/18/2014 9:06am Hx Alcohol Use Y SOCIAL 06/18/2014 9:06am Query Response Start Date Stop Date Smoking Status Current every day smoker Hospital Discharge Instructions No hospital discharge instructions. Plan of Care No plan of care. Functional Status Query Response Date Recorded Physical Hygiene Self June 18, 2014 9:06am Disabilities None June 18, 2014 9:06am Devices Used None June 18, 2014 9:06am Dressing Self June 18, 2014 9:06am Ambulation Self June 18, 2014 9:06am Diet Self June 18, 2014 9:06am Mental Status Alert June 18, 2014 11:01am Oriented Disabilities None June 18, 2014 9:06am Devices Used None June 18, 2014 9:06am Physical Hygiene Self June 18, 2014 9:06am Dressing Self June 18, 2014 9:06am Ambulation Self June 18, 2014 9:06am Diet Self June 18, 2014 9:06am Allergies, Adverse Reactions, Alerts Allergen Type Severity Reaction Status Last Updated diphenhydramine HCl Allergy Mild RASH Active 02/16/14 Hydrocortisone Allergy Intermediate RASH GETS WORSE Active 02/16/14 STEROID SHOTS Allergy Unknown Active 02/16/14 Immunizations Name Given Type Hx Influenza Vaccination Y 11/2010 Historical Hx Pneumococcal Vaccination No Historical Hx Influenza Vaccination Y 11/2010 Historical Vital Signs Acute Vital Signs Vital Response Date/Time Temperature (Fahrenheit) 97.4 deg F (96.8 - 99.1) Temperature (Calculated Celsius) 36.32136 degrees C (36.0 - 37.3) Pulse Rate (adult) 70 bpm (60 - 100) Respiratory Rate 20 breaths/min (10 - 20) O2 Sat by Pulse Oximetry 98 % (90 - 100) Blood Pressure 162/107 mm Hg Height 5 ft 6.5 in Weight 260 lb Body Mass Index 41.0 kg/m^2 Results Test Source Date Result Interp. Ref. Comments Range Alanine June 18, 38 U/L N 9-52 Aminotransferase 2014 8:39am (ALT/SGPT) Albumin June 18, 4.0 G/DL N 3.5-5.0 2014 8:39am Albumin/Globulin June 18, 1.2 RATIO N 1.1-2.2 Ratio 2015 8:39am Alkaline June 18, 71 U/L N 38-126 Phosphatase 2014 8:39am Amylase Level June 18, 72 U/L N 30-110 2015 8:39am Anion Gap June 18, 12 MEQ/L N 5-15 2014 8:39am Aspartate Amino June 18, 23 U/L N 14-36 Transf (AST/SGOT) 2014 8:39am BUN/Creatinine June 18, 13 RATIO N 6-26 Ratio 2014 8:39am Basophils # (Auto) June 18, 0.0 T/MM3 N 0-0.2 2014 8:39am Basophils (%) June 18, 0.3 % N 0-2 (Auto) 2014 8:39am Beta HCG, July 23, 2010 65006 UIU/ML - NORMAL EXPECTED RANGE: NOT DETECTEDGESTATION 1-10 WEEKS: 45-256,380 Quantitative 3:35pm 11-15 WEEKS: 11,556-265,380 16-22 WEEKS: 27,023-111,954 23-40 WEEKS: 24,031-101,566 Blood Urea Nitrogen June 18, 10.0 MG/DL N 7-17 2014 8:39am Calcium Level June 18, 9.2 MG/DL N 8.4-10.2 2014 8:39am Calculated June 18, 271 MOSM/KG N 261-280 Osmolality 2014 8:39am Carbon Dioxide June 18, 23 MEQ/L N 22-30 Level 2014 8:39am Chemistry Specimen June 18, < 15 0-25 0-25: No Hemolysis.26-70: Slight Hemolysis - can falsely elevate K and Urine Hemolysis 2014 8:39am Protein. 71-285: Moderate Hemolysis - can falsely elevate K, Troponin I, CA 19-9, PTH, CSF GLucose, and Urine Protein, and can falsely decrease Phenytoin. 286-999: Gross Hemolysis - can falsely elevate K, Troponin I, CA 19-9, PTH, CSF Glucose, and Urine Protine, and can falsely decrease Phenytoin. Recommend specimen recollection. Chlamydia July 23, 2010 Sent out - trachomatis 4:23pm Amplified DNA Chloride Level June 18, 106 MEQ/L N 98-107 2014 8:39am Creatinine June 18, 0.8 MG/DL N 0.7-1.2 2014 8:39am Eosinophils # June 18, 0.7 T/MM3 H 0-0.5 (Auto) 2014 8:39am Eosinophils (%) June 18, 7.5 % H 0-4 (Auto) 2014 8:39am Membranes August 13, 2010 Negative - Rupture (PAMG-1) 3:58pm Globulin June 18, 3.3 G/DL N 2.4-3.6 2014 8:39am Glomerular June 18, 87 - Filtration Rate 2014 8:39am Calc Glucose Level June 18, 116 MG/DL H 65-110 2014 8:39am Hematocrit June 18, 44.0 % N 36-46 2014 8:39am Hemoglobin June 18, 15.3 GM/DL N 12-16 2014 8:39am Icterus Index June 18, < 2 0-7 2014 8:39am Immature June 18, 0.02 T/MM3 N 0.00-0.0 Granulocyte # 2014 8:39am 3 (Auto) Immature June 18, 0.2 % N 0.0-0.5 Granulocyte % 2014 8:39am (Auto) Lab Scanned Report July 25, 2010 REFERENCE - 4:38pm LAB [id number] Lipase June 18, 68 U/L N 23-300 2014 8:39am Lymphocytes # June 18, 2.9 T/MM3 N 1-4.8 (Auto) 2014 8:39am Lymphocytes (%) June 18, 33.8 % N 23-45 (Auto) 2014 8:39am Mean Corpuscular June 18, 30.0 UUG N 26-34 Hemoglobin 2015 8:39am Mean Corpuscular June 18, 34.8 GM/DL N 31-37 Hemoglobin Concent 2014 8:39am Mean Corpuscular June 18, 86.3 UM3 N 80-100 Volume 2015 8:39am Mean Platelet June 18, 10.2 UM3 N 9.4-12.4 Volume 2015 8:39am Monocytes # (Auto) June 18, 0.4 T/MM3 N 0-0.8 2014 8:39am Monocytes (%) June 18, 5.1 % N 0-9.0 (Auto) 2014 8:39am Neutrophils # June 18, 4.6 T/MM3 N 1.8-7.7 (Auto) 2014 8:39am Neutrophils (%) June 18, 53.1 % N 33-66 (Auto) 2014 8:39am Platelet Count June 18, 266 T/MM3 N 122-258 8336 8:39am Potassium Level June 18, 4.3 MEQ/L N 3.6-5 2014 8:39am RDW Standard June 18, 38.4 FL N 36.9-50. Deviation 2014 8:39am 2 Red Blood Count June 18, 5.10 M/MM3 N 4.00-5.2 2014 8:39am 0 Sodium Level June 18, 141 MEQ/L N 606-399 6435 8:39am Total Bilirubin June 18, 0.60 MG/DL N 0.20-1.3 2014 8:39am 0 Total Protein June 18, 7.3 G/DL N 6.3-8.2 2014 8:39am Turbidity June 18, < 20 0-20 2014 8:39am Urine Amorphous July 23, 2010 Many - Has specimen been Phosphates 3:50pm collected/obtained? Y Urine Bacteria June 18, None seen - Has specimen been 2014 9:40am collected/obtained? Y Urine Bilirubin June 18, Negative - Has specimen been 2014 9:40am collected/obtained? Y Urine Blood June 18, Negative - Has specimen been 2014 9:40am collected/obtained? Y Urine Collection June 18, Cleancatch-m - Has specimen been Type 2014 9:40am idstream collected/obtained? Y Urine Color June 18, Yellow - Has specimen been 2014 9:40am collected/obtained? Y Urine Culture July 23, 2010 Cult not - Has specimen been Indicated 3:50pm indicated collected/obtained? Y Urine Glucose (UA) June 18, Negative - Has specimen been 2014 9:40am collected/obtained? Y Urine Ketones June 18, Negative - Has specimen been 2014 9:40am collected/obtained? Y Urine Leukocyte June 18, 1+ H - Has specimen been Esterase 2014 9:40am collected/obtained? Y Urine Microscopic November Not - Has specimen been Not Indicated 2010 indicated collected/obtained? 5:35pm Y Urine Nitrite June 18, Negative - Has specimen been 2014 9:40am collected/obtained? Y Urine Protein June 18, Negative - Has specimen been 2014 9:40am collected/obtained? Y Urine RBC June 18, 1-3 /HPF - Has specimen been 2014 9:40am collected/obtained? Y Urine Specific June 18, 1.020 - Has specimen been Star 2014 9:40am collected/obtained? Y Urine Squamous June 18, 0-5 - Has specimen been Epithelial Cells 2014 9:40am collected/obtained? Y Urine Turbidity June 18, Clear - Has specimen been 2014 9:40am collected/obtained? Y Urine Urobilinogen June 18, 0.2 EU/DL - Has specimen been 2014 9:40am collected/obtained? Y Urine WBC June 18, 5-10 /HPF H - Has specimen been 2014 9:40am collected/obtained? Y Urine pH June 18, 6.0 - Has specimen been 2014 9:40am collected/obtained? Y White Blood Count June 18, 8.6 T/MM3 N 4.5-11.0 2014 8:39am Wet Prep Vagina July 23, 2010 4:23pm Name: DARIEL OSULLIVAN Unit #: [id number] : 1990 Sex: F Loc / Svc: ED DOS: 06/18/14 Signed Report #: [id number] DIAGNOSTIC IMAGING REPORT TYPE OF EXAM: US GALLBLADDER Dictated By: NORMAN FLORES MD Indication: ITS.REASON: epigastric and RUQ Pain US GALLBLADDER: Comparison: September 10, 2010 Technique: Grayscale and color Doppler sonographic imaging of the right upper quadrant of the abdomen was performed. Findings: Hepatic parenchyma is mildly echogenic without evidence for focal mass. The gallbladder shows a shadowing mobile 1.6 cm gallstone. There is no wall thickening, pericholecystic fluid or sonographic Lacy's sign. Both the intra and extrahepatic biliary system are of normal caliber with the common duct measuring 4 mm in dimension. Visualized portions of the head and body of the pancreas are. The right kidney is present without collecting system dilatation. The right kidney measures 11.5 cm in length. Impression: Cholelithiasis without other sonographic evidence of acute cholecystitis. Probable hepatic steatosis. . Procedures No known history of procedures. Encounters Encounter Location Date/Time Departed Emergency Room [facility] 06/18/14 8:09am Recent Diagnosis
--- OUTSIDE RECORDS SUMMARY | 2016-12-18 10:30 | External Medical Summary | Continuity of Care Document ---
:1990 Author Organization [facility] Address [address] [place], [place] [id number] Phone Care Team Providers Name Role Phone Abdiel Pacheco MD Unavailable Unavailable Allergies, Adverse Reactions, Alerts Substance Reaction Severity Status DIPHENHYDRAMINE HCL Unknown Active betamethasone Unknown Active CHLORPHENIRAMINE MALEATE Unknown Active hydrocortisone Unknown Active Medications Medication Instructions Dosage Effective Dates Status Comments (start - stop) Novolog Mix 70-30 8 ulnits am and hs - Active 100 unit/mL subcutaneous solution Novolog Flexpen 100 inject by Not Available - Active unit/mL subcutaneous subcutaneous route 3 units with meals Flovent Diskus 50 inhale 1 puff by - Active mcg/actuation powder inhalation route 2 for inhalation times every day ProAir HFA 90 inhale 2 puff by - Active mcg/actuation inhalation route aerosol inhaler every 4 - 6 hours as needed ONE DAILY take 1 tablet by - Active (unknown strength) oral route every day Problems Condition Effective Dates (start - stop) Clinical Status Follow-Up, Routine - Supervision of other high risk - pregnancies, second trimester Pre-existing essential htn comp - , second trimester 26 weeks gestation of - Gestational diabetes in , - insulin controlled Supervision of other high risk - pregnancies, third trimester 28 weeks gestation of - Morbid (severe) obesity [...] second trimester 20 weeks gestation of - Follow-Up, Routine Supervision of other high risk - pregnancies, second trimester Pre-existing essential htn comp - , second trimester 24 weeks gestation of - Pelvic Pain - Active Active Procedures Procedure Date Unknown Results Test Name Date and Time Measure Units Reference Range Abnormal Flag Comments Unknown Advance Directives Directive Yes / No Effective Date File Name Unknown Encounters Encounter Practice Location Reason(s) Diagnoses Date Provider Care Team Description For Visit Members Leticia Huizar Gestational Sep-2 [facility] diabetes in [facility], , 7 700 [address] insulin Medical [address], [facility] other [place], high risk 120, , pregnancies, [facility] third [email or web address] [place], tel:[phone] weeks gestation [phone] of , [place]. tel: [phone] Leticia Huizar Supervision of Sep-1 [facility] In [facility] other high risk 2-201 [facility], pregnancies, 7 700 [address] second Medical 15[address], [facility] [address], [place], htn comp 120, [id number], , second [facility] [email or web address] weeks [place], tel:[phone] gestation of [id number] , [place]. tel: [phone] Leticia Huizar Sep-0 [facility] In [facility]ens 6-201 [facility], 7 700 [address], [place], [place], 120, [id number], [place], [place], tel:+ [phone] , [place]. tel:[phone] Leticia Huizar Supervision of Jass-2 [facility] In [facility]omens other high risk 7-201 [facility], pregnancies, 7 700 [address] second Medical [address], [facility] [place] [address], [place], htn comp 120, [id number], , second [place], [place] [email or web address] weeks [place], tel:[phone] gestation of [id number] , [place]. tel: [phone] Leticia Huizar Supervision of July-3 [facility] In [facility] other high risk 1-201 [facility], pregnancies, 7 700 [address] second Medical [address], trimesterPre-exis [facility] [address], [place], htn comp 120, [id number], , second [place], [place] [email or web address] weeks [place], tel:[phone] gestation of [id number] , [place]. tel: [phone] Leticia Huizar Suprvsn of preg w July-3 [facility] In [facility] Ultrasound insufficient 1-201 [facility], antenat care, 7 700 [address] second Medical [address], triPre-existing Center [place], ashley htn , [place], comp , 120, [id number], second [place], [place] trimesterSupervis [place], tel:[phone] ion of other high [phone] risk pregnancies, , [place]. second tel:[phone] [id number] weeks [phone] gestation of [facility] Supervision of Apr-2 [facility] In [facility]omens other high risk 5-201 [facility], pregnancies, 7 700 [address] second Medical 1522, trimesterPre-exis [facility] [address], [place], htn comp 120, [id number], , second [place], [place] [email or web address] weeks [place], tel:[phone] gestation of [id number] , [place]. tel: [phone] Leticia Huizar Javad-2 [facility] Follow-Up, 0-201 [facility], Routine 6 700 [address], [address] [place], [place], 120, [id number], [place], [place], tel:[phone] , [place]. tel: [phone] [facility] Dec-1 [facility] Follow-Up, 4-201 [facility], Routine 5 700 [facility] [address], [address] [place], [facility] [place], 120, [id number], [place], [place], tel: [phone] , [place]. tel: [phone] [facility] Morbid (severe) Nov-1 [facility] Ultrasound obesity due to 2-201 [facility], excess calories 5 700 [facility] Medical [address], [address], [facility] [place], 120, [id number], [facility] [place], tel: [phone] , [place]. tel: [phone] Leticia Huizar Oct-2 [facility] Referring In Womens 8-201 Fern. Provider: Lan HOOD, 5 700 Fern [facility]za [facility], [address], [place] [address], [facility] [place], 120, [place] 120, [id number], Bhupendra [place], [place], [place], tel: [phone]. , [place]. tel: tel: [phone] Leticia Huizar Oct-1 [facility] Referring In Womens 4-201 Fern. Provider: Lan HOOD, 5 700 Fern [facility], [address], [place] [address], [facility] [place], 120, [place] 120, [id number], Bhupendra [place], [place], [place], tel: [phone]. , [place]. tel: tel: [phone] Leticia Huizar Jass-1 [facility] In Womens 6-201 [facility]. [facility], 5 700 [facility] [address], [address], [facility] [place], 120, [id number], [facility] [place], tel: [phone] , [place]. tel: [phone] Leticia Huizar Apr-1 [facility] In Womens 7-201 [facility], 5 700 PO [facility] [address], [address] [place], [place], 120, [id number], [facility] [place], tel: [phone] , [place]. tel: [phone] Leticia Huizar Apr-0 [facility] In Womens 1-201 [facility], 5 700 [address] Medical [address], [address] [place], [place], 120, [id number], [facility] [place], tel: [phone] , [place]. tel: [phone] Leticia Huizar Sep-2 [facility] In Womens 5-201 [facility], 2 700 [address], [address] [place], [facility] [place], 120, [id number], [facility] [place], tel: [phone] , [place]. tel: [phone] Leticia [place] Mar-1 [facility] Referring In Womens 3-201 Fern. Provider: Health [place], 2 700 Fern [place] PO [address] Medical [place], [address], [place] [address], [facility] [place], 120, [place] 120, [id number], Bhupendra [place], [place], [place], tel: [phone]. , [place]. tel: tel: [phone] Family History Family Member Diagnosis Age At [...] name Insurance type Covered democrat ID Authorization(s) [facility] - Medicaid [id number] [facility] - [id number] Medicaid [facility] - [id number] Medicaid [facility] - [id number] Medicaid Social History Type Description Quantity Date [...] Radiology Order Biophysical Profile without NST Ordered ([id number]) Future Order: Radiology Order Complete OB Ultrasound > 14 Ordered Weeks ([id number]) Future Order: Lab Order Pap Smear With [...]
--- OUTSIDE RECORDS SUMMARY | 2016-12-18 10:30 | External Medical Summary | Continuity of Care Document ---
:1990 Author Organization [facility] Address [address] [place], [place] [id number] Phone Care Team Providers Name Role Phone [...] Reference Range Abnormal Flag Comments Panel Description: GLUCOSE TOLERANCE TEST, GESTATIONAL,4SPEC(100G) GLUCOSE, FASTING 07:59:00 151 mg/dL 65-94 H GLUCOSE, 1 HOUR 07:59:00 203 mg/dL <180 H GLUCOSE, 2 HOUR 07:59:00 142 mg/dL <155 N GLUCOSE, 3 HOUR 07:59:00 77 mg/dL <140 N CHECKED NAMES & amp; TIMES ON TUBES. 07:59:00 See Below Luevano/Coustan Criteria: Two or more values greater than the above reference intervals are suggestive of gestational diabetes. Test performed at [facility] [id number] [address]ARA RODRIGUEZ [id number]: ASHLY MAIER DO,MPH Advance Directives Directive Yes / No Effective Date File Name Unknown Encounters Encounter Practice Location Reason(s) Diagnoses Date Provider Care Team Description For Visit Members Leticia [place] Mendoza In Womens 8-201 [facility], 7 700 [facility] [address] [place], [facility] [place], 120, [id number], [place], tel:[phone] , [place]. tel:[phone] Leticia [place] Dillon-2 Mendoza In Womens 7- [facility], 7 700 [address] Medical [address], [address] [place], 120, [id number], [place], tel:[phone] , [place]. tel: [phone] Leticia [place] Supervision of Dillon-2 Mendoza In Womens other high risk 7- [facility], pregnancies, 7 700 PO Box third Medical 1522, trimesterGestatio [facility], nal diabetes in [place], , 120, , insulin [place], [place], tel:[phone] weeks gestation [phone] of , [place]. tel: [phone] Leticia Huziar Pre-existing Dillon-2 Mendoza In Womens Ultrasound essential htn 7- [facility], comp , 7 700 PO Box third Medical 1522, trimesterLiver [facility], and biliary tract [place], disord in 120, , , third [place], [email or web address] weeks [place], tel:+[phone] gestation of [id number] , [place]. tel: [phone] Leticia [place] Dillon-1 Mendoza In Womens 3-201 [facility], 7 700 [address] [facility] [address], [address] [place], 120, , [place], tel:[phone] , [place]. tel:[phone] Leticia [place] Supervision of Dillon-1 Mendoza In Womens other high risk 2-201 [facility], pregnancies, 7 700 PO Box second Medical 1522, trimesterPre-exis [facility], ting essential [place], htn comp 120, , , second [place], [email or web address] weeks [place], tel:[phone] gestation of [phone] [id number] , [place]. tel:[phone] Leticia [place] Supervision of Jass-2 Mendoza In Womens other high risk 7-201 [facility], pregnancies, 7 700 PO Box second Medical 1522, [facility]Pre-exis [facility], [place], htn comp 120, [id number], , second [place], [place] [id number] weeks [place], tel:[phone] gestation of [phone] , [place]. tel: [phone] Leticia [place] Supervision of July-3 Mendoza In Womens other high risk 1-201 [facility], pregnancies, 7 700 PO Box second Medical 1522, [facility] [address], [place], htn comp 120, [id number], , second [place], [place] [id number] weeks [place], tel:[phone] gestation of [phone] [id number] , [place]. tel: [phone] Leticia [place] Suprvsn of preg w July- Mendoza In Womens Ultrasound insufficient 1-201 [facility] SANA, antenat care, 7 700 PO Box second Medical 1522, triSupervision of [facility], other high risk , [place], pregnancies, 120, [id number], second [place], [place] trimesterPre-exis [place], tel:[phone] ting essential [phone] htn comp , [place]. , second tel:+04-21 weeks [phone] gestation of [facility] Supervision of Apr-2 Mendoza In Womens other high risk 5-201 [facility], pregnancies, 7 700 PO Box second Medical 1522, trimesterPre-exis [address], [place], htn comp 120, [id number], , second [place], [place] [id number] weeks [place], tel:[phone] gestation of [id number] , [place]. tel: [phone] Leticia [place] Javad-2 Mendoza In Womens Follow-Up, 0-201 [facility], Routine 6 700 [address], [facility], [place], 120, [id number], [place], tel:[phone] , [place]. tel: [phone] Leticia [place] Dec-1 Mendoza In Womens Follow-Up, 4-201 [facility], Routine 5 700 [facility] Medical [address] [place], [facility] [place], 120, [id number], [place], tel: [phone] , [place]. tel: [phone] Leticia [place] Morbid (severe) Nov-1 Mendoza In Womens Ultrasound obesity due to 2-201 [facility], excess calories 5 700 [facility] Medical [address], [address] [place], [facility] [place], 120, [id number], [place], tel: [phone] , [place]. tel: [phone] Leticia [place] Oct-2 Mendoza Referring In Womens 8-201 Fern. Provider: Health SANA, 5 700 Fern Mendoza [facility] Medical K, 700 [address], [address], [facility] [place], 120, [place] 120, , [place], [place], [place], tel: [phone]. , [place]. tel: tel: [phone] Leticia [place] Oct-1 Mendoza Referring In Womens 4-201 Fern. Provider: Health SANA, 5 700 Fern Mendoza [facility] Medical K, 700 [address], [address], [facility] [place], 120, [place] 120, [id number], [place], [place], tel:[phone]. , [place]. tel: tel: [phone] Leticia [place] Jass-1 Mendoza In Womens 6-201 [facility], 5 700 [facility] [address], [address], [facility] [place], 120, [id number], [place], [place], tel:[phone] , [place]. tel: [phone] Leticia [place] Apr-1 Mendoza In Womens 7-201 [facility], 5 700 [facility] Medical [address], [address], [facility] [place], 120, [id number], [place], tel:[phone] , [place]. tel: [phone] [facility] Apr-0 Mendoza In Womens 1-201 [facility], 5 700 [address] [facility] [address], [address] [place], [place], 120, [id number], [facility] [place], tel: [phone] , [place]. tel: [phone] Leticia [place] Sep-2 Mendoza In Womens 5-201 [facility], 2 700 [address] Medical [address], [address], [facility] [place], 120, [id number], [facility] [place], tel: [phone] , [place]. tel: [phone] Leticia [place] Mar-1 Mendoza Referring In Womens 3-201 Fern. Provider: Health PA, 2 700 Fern Mendoza PO Box Medical K, 700 [address], [address], [facility] [place], 120, [place] 120, [id number], [place], [place], [place], tel: [phone]. , [place]. tel: tel: [phone] Family History Family Member Diagnosis Age At [...] name Insurance type Covered republican ID Authorization(s) [facility] - Medicaid [id number] [facility] - [id number] Medicaid [facility] - [id number] Medicaid [employer] [facility] - [id number] Medicaid Social History Type Description Quantity Date [...] Radiology Order Biophysical Profile without NST Ordered ([id number]) Future Order: Radiology Order Complete OB Ultrasound > 14 Ordered Weeks ([id number]) Future Order: Radiology Order Ultrasound OB Follow-up ([id number]) Ordered Future Order: Lab Order Pap Smear [...]
--- OUTSIDE RECORDS SUMMARY | 2016-12-18 10:30 | External Medical Summary | Continuity of Care Document ---
:1990 Author Organization [facility] Address [address] [place], [place] [phone] Phone Care Team Providers Name Role Phone [...] insulin controlled 28 weeks gestation of - Gestational diabetes in , - insulin controlled 30 weeks gestation of - Follow-Up, Routine Pelvic Pain - Active Active Procedures Procedure Date Ultrasnd preg uterus, flwup/repeat Results Test Name Date and Time Measure Units Reference Range Abnormal Flag Comments Unknown Advance Directives Directive Yes / No Effective Date File Name Unknown Encounters Encounter Practice Location Reason(s) Diagnoses Date Provider Care Team Description For Visit Members Leticia [place] Oct- Mendoza In Womens Fern. Madrone PA, 7 700 [address] [facility] [address], [address] [place], [facility] [place], 120, [id number], [place], tel:[phone] , [place]. tel: [phone] Leticia [place] Supervision of Mendoza In Womens Ultrasound other high risk Fern. Madrone PA, pregnancies, 7 700 PO Box third Medical 1522, trimesterPre-exis [facility], ting essential [place], htn comp 120, , , third [place], trimesterGestatio [place], tel:+ nal diabetes in , , [place]. insulin tel: [id number] [phone] weeks gestation of [facility] Gestational Aug-1 Mendoza In Womens diabetes in 0-201 [facility], , 7 700 PO Box insulin Medical 1522, [email or web address] [facility], weeks gestation [place], of 120, [id number], [place], tel: [phone] , [place]. tel: [phone] Leticia [place] Dillon-2 Mendoza In Womens 8-201 [facility], 7 700 [address] Medical [address], [address] [place], 120, [id number], [place], tel:[phone] , [place]. tel: [phone] Leticia [place] Dillon-2 Mendoza In Womens 7-201 [facility], 7 700 [address] [facility] [address], [address] [place], 120, [id number], [place], tel:[phone] , [place]. tel: [phone] Leticia [place] Supervision of Dillon-2 Mendoza In Womens other high risk 7- [facility], pregnancies, 7 700 PO Box third Medical 1522, trimesterGestatio [facility], nal diabetes in [place], , 120, [id number], insulin [place], [email or web address] [place], tel:+ weeks gestation of , [place]. tel: [phone] Leticia [place] Pre-existing Dillon-2 Mendoza In Womens Ultrasound essential htn 7-201 [facility], comp , 7 700 PO Box third Medical 1522, trimesterLiver [facility], and biliary tract [place], disord in 120, [id number], , third [place], [email or web address] weeks [place], tel:[phone] gestation of [id number] , [place]. tel: [phone] Leticia [place] Supervision of Sep- Mendoza In Womens other high risk 2-201 [facility], pregnancies, 7 700 PO Box second Medical 1522, trimesterPre-exis [facility] [address], [place], htn comp 120, [id number], , second [place], [place] [email or web address] weeks [place], tel:+[phone] gestation of [id number] , [place]. tel:[phone] Leticia [place] Supervision of Jass- Mendoza In Womens other high risk 7-201 [facility], pregnancies, 7 700 PO Box second Medical 1522, [facility]is [facility] [address] [facility], [place], htn comp 120, [id number], , second [place], [place] [id number] weeks [place], tel:[phone] gestation of [id number] , [place]. tel: [phone] Letiica [place] Supervision of Mendoza In Womens other high risk 1-201 [facility], pregnancies, 7 700 PO Box second Medical 1522, [facility]Pre[facility]exis [facility], [place], htn comp 120, [id number], , second [place], [place] [id number] weeks [place], tel:[phone] gestation of [phone] [id number] , [place]. tel: [phone] Leticia [place] Suprvsn of preg w July- Mendoza In Womens Ultrasound insufficient 1-201 [facility], antenat care, 7 700 PO Box second Medical 1522, triSupervision of [facility], other high risk [place], pregnancies, 120, [id number], second [place], [place] trimesterPre-exis [place], tel:[phone] ting essential [phone] htn comp , [place]. , second tel:+04-21 weeks [phone] gestation of [facility] Supervision of Jun- Mendoza In Womens other high risk 5-201 [facility], pregnancies, 7 700 PO Box second Medical 1522, trimesterPre-exis [address], [place], htn comp 120, [id number], , second [facility] [id number] weeks [place], tel: gestation of , [place]. tel: [phone] Leticia [place] Javad-2 Mendoza In Womens Follow-Up, 0-201 [facility], Routine 6 700 PO [place] [facility] [address], [address] [place], [facility] [place], 120, [id number], [place], [place], tel:[phone] , [place]. tel: [phone] Leticia [place] Dec-1 Mendoza In Womens Follow-Up, 4-201 [facility], Routine 5 700 [facility] 1522, [address] [place], [facility] [place], 120, [id number], [facility] [place], tel:[phone] , [place]. tel: [phone] Leticia [place] Morbid (severe) Nov-1 Mendoza In Womens Ultrasound obesity due to 2-201 [facility], excess calories 5 700 PO [place] [facility] [address], [address] [place], [facility] [place], 120, [id number], [facility] [place], tel:[phone] , [place]. tel: [phone] Leticia [place] Oct-2 Mendoza Referring In Womens 8-201 Fern. Provider: Lan HOOD, 5 700 Fern Mendoza PO [place] [facility] , 700 [address], [address], [facility] Dr [place], 120, [place] 120, [id number], Bhupendra [place], [place], [place], tel: [phone]. , [place]. tel: tel: [phone] Leticia [place] Dec-1 Mendoza Referring In Womens 4-201 Fern. Provider: Lan HOOD, 5 700 Fern Mendoza PO [place] [facility] , 700 [address], [address], [facility] Dr [place], 120, [place] 120, [id number], Bhupendra [place], [place], [place], tel:[phone]. , [place]. tel: tel: [phone] [facility] Jass-1 Mendoza In Womens 6-201 [facility], 5 700 PO [place] [facility] [address], [address] [place], [facility] [place], 120, [id number], [facility] [place], tel: [phone] , [place]. tel: [phone] Leticia [place] Apr-1 Mendoza In Womens 7-201 [facility], 5 700 PO [place] [facility] [address], [address] [place], [facility] [place], 120, [id number], [facility] [place], tel:[phone] , [place]. tel: [phone] Leticia [place] Apr-0 Mendoza In Womens 1-201 [facility], 5 700 PO [place] [facility] [address], [address] [place], [facility] [place], 120, [id number], [facility] [place], tel:[phone] , [place]. tel: [phone] Leticia [place] Sep-2 Mendoza In Womens 5-201 [facility], 2 700 PO [place] [facility] [address], [address] [place], [facility] [place], 120, [id number], [facility] [place], tel:[phone] , [place]. tel: [phone] Leticia [place] Mar-1 Mendoza Referring In Womens 3-201 Fern. Provider: Health PA, 2 700 Fern Mendoza PO [place] [facility] K, 700 [address], [address], [facility] [place], 120, [place] 120, [id number], [place], [place], [place], tel:[phone]. , [place]. tel: tel: [phone] Family History Family Member Diagnosis Age At [...] name Insurance type Covered democrat ID Authorization(s) [facility] - Medicaid [place] [id number] [facility] - [id number] Medicaid [employer] [facility] - [id number] Medicaid [employer] [facility] - [id number] Medicaid Social History Type Description Quantity Date [...] cessation counseling completed Referral Ordered: ordered Dulce Javad -Endocrinology, Diabetes and Metabolism (related to Gestational diabetes in , insulin controlled) Referral Ordered: ordered Refer to Physical Therapyfor Evaluate & Treat Appointment Dariel Espinosa BOOKED Appointment Dariel Espinosa BOOKED Appointment Dariel Espinosa BOOKED Appointment Dariel Espinosa BOOKED Appointment Dariel Espinosa BOOKED Appointment Dariel Espinosa BOOKED Future Order: Radiology Order Ultrasound OB Follow-up ([id number]) Ordered Future Order: Radiology Order Biophysical Profile without NST Ordered ([id number]) Future Order: Radiology Order Complete OB Ultrasound > 14 Ordered Weeks ([id number]) Future Order: Radiology Order Ultrasound OB Follow-up ([id number]) Ordered Future Order: Radiology Order Biophysical Profile without NST Ordered ([id number]) Future Order: Lab Order Pap Smear With [...]
--- OUTSIDE RECORDS SUMMARY | 2016-12-18 10:30 | External Medical Summary | Continuity of Care Document ---
:1990 Author Organization [facility] Address [address] [place], [place] [phone] Phone Care Team Providers Name Role Phone [...] Oct- Mendoza In Womens diabetes in 7-201 [facility], , 7 700 PO Box insulin Medical 1522, [email or web address] [facility], weeks gestation [place], of 120, [id number], [place], tel:[phone] , [place]. tel: [phone] Leticia [place] Supervision of Mendoza In Womens Ultrasound other high risk 7- [facility] PA, pregnancies, 7 700 PO Box third Medical 1522, trimesterPre-exis [facility], ting essential [place], htn comp 120, , , third [place], [place] trimesterGestatio [place], tel:+[phone] nal diabetes in , , [place]. insulin tel: [id number] [phone] weeks gestation of [facility] Gestational Aug-1 Mendoza In Womens diabetes in 0-201 [facility], , 7 700 PO Box insulin Medical 1522, [email or web address] [facility], weeks gestation [place], of 120, , [place], [place], tel:[phone] , [place]. tel: [phone] Leticia [place] Dillon-2 Mendoza In Womens 8-201 [facility], 7 700 [address] Medical [address], [address] [place], 120, , [place], [place], tel:[phone] , [place]. tel: [phone] Leticia [place] Dillon-2 Mendoza In Womens 7-201 [facility], 7 700 PO Box Medical 1522, [facility], [place], 120, , [place], [place], tel:[phone] , [place]. tel: [phone] Leticia [place] Supervision of Sep-2 Mendoza In Womens other high risk - [facility]. [facility] PA, pregnancies, 7 700 PO Box third Medical 1522, trimesterGestatio [facility], nal diabetes in [place], , 120, , insulin [place], [id number] [place], tel:+316 weeks gestation of , [place]. tel:[phone] Leticia [place] Pre-existing Dillon-2 Mendoza In Womens Ultrasound essential htn 7- [facility], comp , 7 700 PO Box third Medical 1522, trimesterLiver [facility], and biliary tract [place], disord in 120, , , third [place], [place] [id number] weeks [place], tel:+[phone] gestation of [id number] , [place]. tel: [phone] Leticia [place] Supervision of Sep- Mendoza In Womens other high risk 2-201 [facility], pregnancies, 7 700 PO Box second Medical 1522, trimesterPre-exis [facility], [place], htn comp 120, , , second [place], [place] weeks [place], tel:[phone] gestation of [phone] , [place]. tel: [phone] Leticia [place] Supervision of Jass- Mendoza In Womens other high risk 7-201 [facility], pregnancies, 7 700 PO Box second Medical 1522, trimesterPre-exis [facility], [address], [place], htn comp 120, , , second [place], [place] [email or web address] weeks [place], tel:+[phone] gestation of [id number] , [place]. tel: [phone] Leticia [place] Supervision of Mendoza In Womens other high risk 1-201 [facility], pregnancies, 7 700 PO Box second Medical 1522, [facility]Pre-exis [facility] [address] [facility], [place], htn comp 120, , , second [place], [place] [email or web address] weeks [place], tel:+[phone] gestation of [id number] , [place]. tel: [phone] Leticia [place] Suprvsn of preg w July- Mendoza In Womens Ultrasound insufficient 1-201 [facility], antenat care, 7 700 PO Box second Medical 1522, triSupervision of [facility], other high risk [place], pregnancies, 120, , second [place], [place] trimesterPre-exis [place], tel:[phone] ting essential [phone] htn comp , [place]. , second tel:+[phone] cdkqyugwu40 weeks [phone] gestation of [facility] Supervision of Jun-2 Mendoza In Womens other high risk 5-201 [facility], pregnancies, 7 700 PO Box second Medical 1522, trimesterPre-exis [place] [facility] [address], [place], htn comp 120, [id number], , second [facility] [id number] weeks [place], tel: gestation of , [place]. tel: [phone] Leticia [place] Javad-2 Mendoza In Womens Follow-Up, 0-201 [facility], Routine 6 700 PO [place] [facility] [address], [address] [place], [facility] [place], 120, [id number], [place], [place], tel:[phone] , [place]. tel: [phone] Leticia [place] Dec-1 Mendoza In Womens Follow-Up, 4-201 [facility] PA, Routine 5 700 [facility] Medical 15[address], [address] [place], [facility] [place], 120, [id number], [facility] [place], tel:[phone] , [place]. tel: [phone] Leticia [place] Morbid (severe) Nov-1 Mendoza In Womens Ultrasound obesity due to 2-201 [facility], excess calories 5 700 [facility] Medical 15[address], [address] [place], [facility] [place], 120, , [facility] [place], tel:[phone] , [place]. tel: [phone] Leticia [place] Oct-2 Mendoza Referring In Womens 8-201 Fern. Provider: Health SANA, 5 700 Fern Mendoza [facility] Medical , 700 [address], [address], [facility] [place], 120, [place] 120, [id number], Bhupendra [place], [place], [place], tel:[phone]. , [place]. tel: tel: [phone] Leticia [place] Oct-1 Mendoza Referring In Womens 4-201 Fern. Provider: Lan HOOD, 5 700 Fern Mendoza PO [place] [facility] , 700 [address], [address], [facility] [place], 120, [place] 120, , Bhupendra [place], [place], [place], tel:[phone]. , [place]. tel: tel: [phone] [facility] Jass-1 Mendoza In Womens 6-201 [facility], 5 700 PO Box Medical [address], [address] [place], [facility] [place], 120, [id number], [facility] [place], tel:[phone] , [place]. tel: [phone] Leticia [place] Apr-1 Mendoza In Womens 7-201 [facility], 5 700 PO [place] [facility] [address], [address] [place], [facility] [place], 120, [id number], [facility] [place], tel:[phone] , [place]. tel: [phone] Leticia [place] Apr-0 Mendoza In Womens 1-201 [facility], 5 700 [facility] 1522, [address] [place], [facility] [place], 120, , [facility] [place], tel: [phone] , [place]. tel: [phone] Leticia [place] Sep-2 Mendoza In Womens 5-201 [facility], 2 700 [facility] Medical 15[address], [address] [place], [facility] [place], 120, [id number], [facility] [place], tel: [phone] , [place]. tel: [phone] Leticia [place] Mar-1 Mendoza Referring In Womens 3-201 Fern. Provider: Health PA, 2 700 Fern Mendoza PO [place] [facility] K, 700 [address], [address], [facility] [place], 120, [place] 120, [id number], Bhupendra [place], [facility], [place], tel: [phone]. , [place]. tel: tel: [phone] Family History Family Member Diagnosis Age At [...] Insurance type Covered constitution party ID Authorization(s) [facility] - Medicaid [place] [id number] [facility] - [id number] Medicaid [employer] [facility] - [place] [id number] Medicaid [employer] [facility] - [place] [id number] Medicaid Social History Type Description Quantity Date [...] Espinosa BOOKED Appointment Dariel Espinosa BOOKED Appointment Dairel Espinosa BOOKED Future Order: Radiology Order Biophysical Profile without NST Ordered ([id number]) Future Order: Radiology Order Complete OB Ultrasound > 14 Ordered Weeks ([id number]) Future Order: Radiology Order Ultrasound OB Follow-up ([id number]) Ordered Future Order: Radiology Order Biophysical Profile without NST Ordered ([id number]) Future Order: Radiology Order Ultrasound OB Follow-up ([id number]) Ordered Future Order: Lab Order Pap Smear [...]
--- OUTSIDE RECORDS SUMMARY | 2016-12-18 10:30 | External Medical Summary | Continuity of Care Document ---
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, , 7 700 [address] insulin Medical 1522, [id number] [facility] [place], weeks gestation [place], of pregnancyOth 120, [id number], mental disorders [place], [place] complicating [place], tel:[phone] , third [id number] trimester , [place]. tel: [phone] Leticia Huizar Gestational Sep-1 [facility] Ultrasound diabetes in [place], , 7 700 PO Box insulin Medical 1522, controlledPre-exi [facility] [place], sting essential [place], htn comp 120, [id number], , third [place], [place] [id number] weeks [place], tel:[phone] gestation of [id number] , [place]. tel: [phone] Leticia [place] Gestational Sep-0 [facility] diabetes in [place], , 7 700 PO Box insulin Medical 1522, [id number] [facility] [place], weeks gestation [place], of 120, , [place], tel:+ [phone] , [place]. tel: [phone] [facility] Pre-existing Sep-0 [facility] In [facility]om[facility] Ultrasound essential htn [facility], comp , 7 700 PO Box third Medical 1522, trimesterGestatio [facility] [place], [facility] diabetes in [place], , 120, [id number], insulin [place], [place] [id number] [place], tel:[phone] weeks gestation [phone] of , [place]. tel: [phone] Leticia [place] Sep-0 [facility], 7 700 PO Box Medical 1522, [facility], [place], 120, [id number], [place], tel:+ [phone] , [place]. tel: [phone] Leticia [place] Gestational Aug-3 [facility] In [facility]omens diabetes in [facility], , 7 700 PO Box insulin Medical 1522, [id number] [facility] [place], weeks gestation [place], of 120, , [place], tel:[phone] , [place]. tel: [phone] Leticia [place] Supervision of Aug-3 [facility] In Womens Ultrasound other high risk - [facility], pregnancies, 7 700 PO Box third Medical 1522, trimesterGestatio [facility] [place], [facility] diabetes in [place], , 120, [id number], insulin [place], [place] controlledPre-exi [place], tel:+ sting essential [phone] htn comp , [place]. , third tel:+04-21 [id number] weeks [phone] gestation of [facility] Supervision of Aug-2 [facility] In Womens other high risk - [facility], pregnancies, 7 700 PO Box third Medical 1522, trimesterGestatio [facility] [place], nal diabetes in [place], , 120, [id number], insulin [place], controlledLiver [place], tel:+ and biliary tract [phone] disord in , [place]. , third tel: [id number] weeks [phone] gestation of [facility] Gestational Aug-2 [facility] In Womens Ultrasound diabetes in [place], , 7 700 PO Box insulin Medical 1522, controlledPre-exi [facility] [place], tomy essential , [place], htn comp 120, [id number], , third [place], [email or web address] weeks [place], tel:+ gestation of [phone] [id number] , [place]. tel: [phone] Leticia [place] Gestational Aug-1 [facility] In [facility]omens diabetes in [place], , 7 700 PO Box insulin Medical 1522, [email or web address] [facility] [place], weeks gestation [place], of 120, [id number], [place], tel:[phone] , [place]. tel: [phone] Leticia [place] Supervision of Aug-1 [facility] In Womens Ultrasound other high risk [place], pregnancies, 7 700 PO Box third Medical 1522, trimesterPre-exis [facility] [place] [address], [place], htn comp 120, [id number], , third [place], trimesterGestatio [place], tel:+ nal diabetes in [phone] , , [place]. insulin tel: [id number] [phone] weeks gestation of [facility] Gestational Aug-1 [facility] In Womens diabetes in 0 [place], , 7 700 PO Box insulin Medical 1522, [email or web address] [facility] [place], weeks gestation [place], of 120, , [place], tel: [phone] , [place]. tel: [phone] Leticia [place] Dillon-2 [facility] In Womens 8 [place], 7 700 PO Box Medical 1522, [facility] [place], [place], 120, [id number], [place], [place], tel:[phone] , [place]. tel:[phone] Leticia [place] Dillon-2 [facility] In Womens 7-201 [facility], 7 700 PO Box Medical [address]22, [facility] [place], [place], 120, [id number], [place], tel:[phone] , [place]. tel:[phone] Leticia [place] Supervision of Dillon-2 [facility] In Womens other high risk 7-201 [facility], pregnancies, 7 700 PO Box third Medical 1522, trimesterGestatio [facility] [place], jo diabetes in [place], , 120, , insulin [place], [place] [email or web address] [place], tel:[phone] weeks gestation [phone] of , [place]. tel:[phone] Leticia [place] Pre-existing Dillon-2 [facility] In Womens Ultrasound essential htn 7- [facility], comp , 7 700 PO Box third [id number] Medical 1522, weeks gestation [facility], of pregnancyLiver [place], and biliary tract 120, , disord in [place], , third [place], tel:[phone] , [place]. tel: [phone] Leticia [place] Supervision of Sep-1 [facility] In Womens other high risk 2-201 [facility], pregnancies, 7 700 PO Box second Medical 1522, trimesterPre-exis [facility] [address], [place], htn comp 120, [id number], , second [place], [email or web address] weeks [place], tel:[phone] gestation of [id number] , [place]. tel:[phone] Leticia [place] Supervision of Jass-2 [facility] In Womens other high risk 7-201 [facility], pregnancies, 7 700 PO Box second Medical 1522, [facility] [address], [place], htn comp 120, [id number], , second [place], [email or web address] weeks [place], tel:[phone] gestation of [id number] , [place]. tel:[phone] Leticia [place] Supervision of July-3 [facility] In Womens other high risk 1-201 [facility], pregnancies, 7 700 PO Box second Medical 1522, trimesterPre-exis [facility] [address], [place], htn comp 120, [id number], , second [place], [place] [id number] weeks [place], tel:[phone] gestation of [id number] [id number] , [place]. tel: [phone] Leticia [place] Suprvsn of preg w July- [facility] In Womens Ultrasound insufficient 1-201 [facility], antenat care, 7 700 PO Box second Medical 1522, triPre-existing [facility] [place], essential htn , [place], comp , 120, [id number], second [place], [place] trimesterSupervis [place], tel:[phone] ion of other high [phone] [id number] risk pregnancies, , [place]. second tel:+04-21 [id number] weeks [phone] gestation of [facility] Supervision of Jun-2 [facility] In Womens other high risk 5-201 [facility], pregnancies, 7 700 PO Box second Medical 1522, trimesterPre-exis [facility] [address], [place], htn comp 120, [id number], , second [place], [place] [email or web address] weeks [place], tel:+[phone] gestation of [id number] , [place]. tel:[phone] Leticia [place] Javad-2 [facility] In [facility]omens Follow-Up, 0-201 [facility], Routine 6 700 PO Box Medical [address], [address], [place], 120, [id number], [place], [place], tel:[phone] , [place]. tel:[phone] Leticia [place] Dec-1 [facility] In Womens Follow-Up, 4-201 [facility], Routine 5 700 PO Box Medical [address], [address], [place], 120, [id number], [place], tel:[phone] [id number] , [place]. tel: [phone] Leticia [place] Morbid (severe) Nov- [facility] In Womens Ultrasound obesity due to 2-201 [facility], excess calories 5 700 PO Box Medical [address], [address] [place], [place], 120, [id number], [place], tel: [phone] , [place]. tel: [phone] [facility] Oct-2 [facility] Referring In Womens 8-201 Fern. Provider: Health SANA, 5 700 Fern [place] PO Box Medical [place], 700 1522, [place] [address], [facility] [place], 120, [place] 120, [id number], Bhupendra [place], [place], [place], tel:[phone]. , [place]. tel: tel: [phone] [facility] Oct-1 [facility] Referring In Womens 4-201 Fern. Provider: Lan HOOD, 5 700 Fern [place] PO Box Medical K, 700 1522, [place] [address], [facility] [place], 120, [place] 120, [id number], Bhupendra [place], [place], [place], tel:[phone]. , [place]. tel: tel: [phone] [facility] Jass-1 [facility] In Womens 6-201 [facility], 5 700 PO Box Medical [address], [address] [place], [place], 120, [id number], [place], [place], tel:[phone] , [place]. tel: [phone] Leticia [place] Apr-1 [facility] In Womens 7-201 [facility], 5 700 PO Box Medical 1522, [address] [place], [place], 120, [id number], [place], tel:+ [phone] , [place]. tel: [phone] Leticia [place] Sep-2 [facility] In Womens 5-201 [facility], 2 700 PO Box Medical [address], [address] [place], [place], 120, [id number], Bh[place]endra, [place], tel:[phone] , [place]. tel: [phone] Leticia [place] Mendoza Referring In Womens 3-201 Fern. Provider: Health SANA, 2 700 Fern Mendoza PO [facility], 700 1522, [place] [address] [place], [facility] Dr [place], 120, [place] 120, [id number], Bhupendra [place], ZARA, [place], tel: [phone]. [id number] , [place]. tel: tel: [phone] Family History Family Member Diagnosis Age At [...] Insurance type Covered alliance party ID Authorization(s) [facility] - Medicaid [place] [id number] [facility] [id number] Medicaid [employer] [facility] [place] [id number] Medicaid [employer] [facility] [place] [id number] Medicaid Social History Type Description Quantity Date Captured Alcohol Use Details No Caffeine Use Details Unknown Tobacco Use Status Smoking Status Current every day smoker Vital Signs Date / Height Weight BMI Pulse Blood Temperature Respiratory Body Head BMI Time: Rate Pressure Rate Surface Circumference percentile Area 279.10 46.0 122/84 -2017 lbs 1 mm[Hg] 1:16 kg/m PM eter (2) Chief Complaint And [...] Radiology Order Biophysical Profile without NST Ordered ([id number]) Future Order: Radiology Order Complete OB Ultrasound > 14 Ordered Weeks ([id number]) Future Order: Radiology Order Ultrasound OB Follow-up ([id number]) Ordered Future Order: Radiology Order Biophysical Profile without NST Ordered ([id number]) Future Order: Radiology Order Biophysical Profile without NST Ordered ([id number]) Future Order: Radiology Order Ultrasound OB Follow-up ([id number]) Ordered Future Order: Radiology Order Biophysical Profile without NST Ordered ([id number]) Future Order: Radiology Order Biophysical Profile without NST Ordered ([id number]) Future Order: Radiology Order Ultrasound OB Follow-up ([id number]) Ordered Future Order: Radiology Order Biophysical Profile without NST Ordered ([id number]) Future Order: Lab Order Pap Smear With [...]
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
[2016-12-19] MEDS: IBUPROFEN 800 MG TABLET PO PRN ×2 (05:17→16:10)
[2016-12-19] MEDS: HYDROCODONE/APAP 5mg/325mg TABLET PO PRN ×4 (05:18→20:49)
--- NOTE | 2016-12-19 08:02 | OB/GYN Progress Note ---
OB-PP Progress Note - General PPD2 Maternal Group B Strep: Negative Maternal blood type: O+ Maternal Rubella Status: Immune - Subjective Date: 12/19/16 Lochia: Minimal Pain: contolled Voiding: voiding Nausea or Vomiting Present: No - Objective Vital Signs: Last Vital Signs Temp 98.0 F 12/18/16 23:00 Pulse 95 12/18/16 23:00 Resp 20 12/18/16 23:00 BP 128/85 12/18/16 23:00 Pulse Ox 99 12/18/16 09:30 General: alert and oriented Cardiovascular: regular rate,rhythm Respiratory: non-labored Abdomen: fundus firm Incision: normal Extremities: non-tender Edema: none - Assessment Assessment: SP, - Plan Plan: routine care, discharge home (Desires Mi[facility] at [facility])
--- NOTE | 2016-12-19 08:06 | Discharge Instructions ---
Discharge Plan - Med Rec/Dispo Referrals/Follow Up: Fern Mendoza MD [Physician] - Jesus Instructions: Vaginal Delivery Prescriptions: New Escitalopram [Lexapro] 10 mg PO DAILY #30 tab Hydrocodone/APAP 5/325 [[place] 5/325] 1 - 2 tab PO Q4H PRN #30 tab PRN Reason: Pain Ibuprofen [Motrin] 800 mg PO Q8H PRN #30 tab PRN Reason: Pain Continue Pnv No.95/Ferrous Fum/Folic AC [ Tablet] 1 tab PO DAILY Albuterol HFA Inhaler [Ventolin Hfa 90 mcg/actuation] 2 puff ORAL INH Q4H PRN PRN Reason: Prn Orders Discontinued pen needle, diabetic 31 gauge x 3/16" See Dose Instructions .ROUTE .MEDSUPPLY #30 each Novolog Mix 70-30 FlexPen (insulin aspar prot-insulin aspart) 100 unit/mL (70 -30) PEN 14 unit SQ BID ml - Disposition 01 Discharged Home, Self-Care
[2016-12-19] MEDS: ESCITALOPRAM 10 MG TABLET PO SCH (08:46)
[2016-12-19 08:52] VITALS: RESP 16
[2016-12-19] MEDS: DOCUSATE CALCIUM 240 MG CAPSULE PO SCH (14:15)
[2016-12-19 18:14] VITALS: TEMP 98.3
[2016-12-19 20:26] VITALS: BP 142/76; PULSE 95; O2SAT 99
== END 2016-12-19 20:55 | disposition home or self-care (01) | DRG 774 ==
LOC: MC 19:34 → OBOBS 19:34 → MC 22:08
PROVIDERS: ADMIT Obstetrics & Gynecology; ATTEND Obstetrics & Gynecology